=== PATIENT | female | born 1965 | race Caucasian/White ===

== ENCOUNTER 2017-05-15 22:06 | Emergency (ER) | payer OTHER ==
[~2017-05-15] VITALS: Ht 170.2 cm; Wt 109.8 kg
[~2017-05-15 22:06] MED LIST: AMBIEN10 MG PO; CALCIUM 500 +1 EAC2 PO; ESTRADIOL0.5 MG PO; ESTRADIOL1 MG PO; FLEXERIL5 MG PO; FLUOXETINE HCL20 MG PO; GABAPENTIN100 MG PO; IBUPROFEN200 MG PO; KONDREMUL2.5 ML/5 M PO; MACRODANTIN100 MG PO; MOTRIN800 MG PO; NORCO 5-325 TA1 EACH PO; ONE-A-DAY WOME1 EAC1 PO; SENNA-S TABLET1 EACH PO; TESSALON200 MG PO; WELLBUTRIN SR150 MG PO
[2017-05-15] MEDS ORDERED: LOSARTAN POTASS25 MG PO (22:51)
[2017-05-15] MEDS ORDERED: VALACYCLOVIR500 MG PO (22:53)
--- NOTE | 2017-05-17 15:52 | EKG ---
[facility] [address] [facility] [place] [address] Signed Normal sinus rhythm Normal ECG No previous ECGs available Confirmed by DARYN WILKES MD ([id number]) on 05/17/2017 3:52:38 PM Electronically Signed By: DARYN WILKES MD 05/17/17 1552 PATIENT NAME: DANIA LUZ Electrocardiogram DATE OF : 63 PHYSICIAN: DARYN WILKES MD REPORT #: [id number] REPORT IS CONFIDENTIAL AND NOT TO BE RELEASED WITHOUT AUTHORIZATION
== END 2017-05-16 02:28 | disposition home or self-care (01) ==
LOC: ED 22:06
DX: R07.2 Precordial pain (principal); I10 Essential (primary) hypertension; Z88.8 Allergy status to other drugs, medicaments and biological substances; Z79.899 Other long term (current) drug therapy
CPT/HCPCS: 71045; 71260; 80053; 84484; 85025; 93005; 93010; 96374; 96375; 96376; 99284; J2270; J2405; Q9967

== ENCOUNTER 2018-08-07 21:35 | Emergency (ER) | payer OTHER ==
[~2018-08-07] VITALS: Ht 170.2 cm; Wt 109.8 kg
--- OUTSIDE RECORDS SUMMARY | ~2018-08-07 | XMS | Encounter Summary ---
Demographics + + + | Address | [address] | | | [place] [address] | + + + | Home Phone | | + + + | Preferred Language | Unknown | + + + | Marital Status | | + + + | Scientologist Affiliation | 1038 | + + + | Race | Unknown | + + + | Ethnic Group | Unknown | + + + Author + + + | Author | [facility] | | | and [place] | + + + | Organization | [facility] | | | and [place] | + + + | Address | Unknown | + + + | Phone | Unavailable | + + + Support + + + + + | Name | Relationship | Address | Phone | + + + + + | Eric Guerrier | ECON | [address] | | | | | [place] [address] | | + + + + + Care Team Providers + +------+ + | Care Boot And Shoe Repairman Name | Role | Phone | + +------+ + | Alex Alvarenga DO | PCP | Unavailable | + +------+ + Reason for Visit + + + | Reason | Comments | + + + | Lab Order | | + + + Encounter Details +--------+ + + + + | Date | Type | Department | Care Team | Description | +--------+ + + + + | 08/06/ | Telephone | [facility] | Alex Alvarenga | Lab Order | | 2019 | | [facility] | E, DO [address] | | | | | MED[facility] CL[facility] [address] | [place], [place] | | | | [address] [place], | [address] | | | | | [place] [address] | [phone] | | | | | [phone] | | | +--------+ + + + [...] + +---------+ + | Alcohol Use | Drinks/We | oz/Week | Comments | | | ek | | | + + +---------+ + | No | 0 | 0.0 | | | | Glasses | | | | | of wine | | | | | 0 Cans of | | | | | beer 0 | | | | | Shots of | | | | | liquor 0 | | | | | Standard | | | | | drinks | | | | | or | | | | | equivalen | | | | | t | | | + + +---------+ + + + + | Sex Assigned at | Date Recorded | | | | + + + | Not on file | | + + + + + + + | Job Start Date | Occupation | Industry | + + + + | Not on file | Not on file | Not on file | + + + + + + + + | Travel History | Travel Start | Travel End | + + + + + + | No recent travel history available. | + + documented as of this encounter Plan of Treatment +--------+---------+ + + + | Date | Type | Specialty | Care Team | Description | +--------+---------+ + + + | 08/16/ | Office | Primary Care | Alex Alvarenga | | | 2018 | Visit | | E, DO [address] | | | | | | [place] | | | | | | [address] | | | | | | [phone] | | | | | | | | +--------+---------+ + + + + +--------+ + + | Name | Priori | Associated Diagnoses | Order Schedule | | | ty | | | + +--------+ + + | Urinalysis with Microscopic with | Routin | Pain with | Expected: | | Culture if Indicated | e | urination | 08/06/2018, Expires: | | | | | 08/07/2019 | + +--------+ + + documented as of this encounter Procedures + +--------+ + + + | Procedure Name | Priori | Date/Time | Associated Diagnosis | Comments | | | ty | | | | + +--------+ + + + | URINALYSIS WITH | Routin | 08/07/2018 | | Results for this | | MICROSCOPIC WITH | e | 10:55 PDT | | procedure are in the | | CULTURE IF INDICATED | | | | results section. | + +--------+ + + + documented in this encounter Results Urinalysis with Microscopic with Culture if Indicated (08/07/2018 10:55 PDT) + + + + + + | Component | Value | Ref Range | Performed | Pathologist | | | | | At | Signature | + + + + + + | Collection | CLEAN CATCH | | REFERENCE | | | | | | LAB | | | | | | [facility] | | + + + + + + | Color, UA | YELLOW | | REFERENCE | | | | | | LAB | | | | | | [facility] | | + + + + + + | Clarity, UA | SLIGHTLYCLOUDY | | REFERENCE | | | | | | LAB | | | | | | [facility] | | + + + + + + | Specific | 1.010 | 1.005 - 1.030 | REFERENCE | | | [place] | | | LAB | | | | | | [facility] | | + + + + + + | pH, | 7 | 5 - 9 | REFERENCE | | | Scalp | | | LAB | | | | | | [facility] | | + + + + + + | Protein, UA | NEGATIVE | negative | REFERENCE | | | | | | LAB | | | | | | [facility] | | + + + + + + | Glucose, UA | NORMAL | normal | REFERENCE | | | | | | LAB | | | | | | [facility] | | + + + + + + | Ketones, UA | NEGATIVE | negative | REFERENCE | | | | | | LAB | | | | | | [facility] | | + + + + + + | Bilirubin, | NEGATIVE | negative | REFERENCE | | | UA | | | LAB | | | | | | [facility] | | + + + + + + | Blood, UA | NEGATIVE | negative | REFERENCE | | | | | | LAB | | | | | | [facility] | | + + + + + + | Nitrite, UA | POSITIVE (H) | negative | REFERENCE | | | | | | LAB | | | | | | [facility] | | + + + + + + | Urobilinoge | NORMAL | normal | REFERENCE | | | n, Ur | | | LAB | | | | | | [facility] | | + + + + + + | Leukocyte | LARGE (H) | negative | REFERENCE | | | esterase, | | | LAB | | | UA | | | [facility] | | + + + + + + | Cast Type | NEGATIVE | 0-1+ Hyaline | REFERENCE | | | | | | LAB | | | | | | [facility] | | + + + + + + | WBC, UA | 10 (H) | 0 - 4 | REFERENCE | | | | | | LAB | | | | | | [facility] | | + + + + + + | RBC, UA | 2 | 0 - 4 | REFERENCE | | | | | | LAB | | | | | | [facility] | | + + + + + + | Squamous | SQUAMOUS 1+ | 0-1+ Squamous | REFERENCE | | | epithelial, | | | LAB | | | UA | | | [facility] | | + + + + + + | CRYSTAL UA | NEGATIVE | 0-1+ | REFERENCE | | | | | | LAB | | | | | | [facility] | | + + + + + + | Bacteria, | 1+ | negative | REFERENCE | | | UA | | | LAB | | | | | | [facility] | | + + + + + + + + | Specimen | + + | | + + + + + | Narrative | Performed At | + + + | Testing Performed at: [facility] CLIA: [id number] [address] | REFERENCE LAB | | [place] [address] | [facility] | + + + + + + + + | Performing | Address | City/State/Zipcode | Phone Number | | Organization | | | | + + + + + | REFERENCE LAB | [address] | [place] [address] | [phone] | | [facility] | | | | + + + + + documented in this encounter Visit Diagnoses + + | Diagnosis | + + | Pain with urination - Primary | + + documented in this encounter"
--- OUTSIDE RECORDS SUMMARY | ~2018-08-07 | XMS | Encounter Summary ---
Demographics + + + | Address | [address] | | | [place] [address] | + + + | Home Phone | | + + + | Preferred Language | Unknown | + + + | Marital Status | | + + + | Rastafarian Affiliation | 1038 | + + + | Race | Unknown | + + + | Ethnic Group | Unknown | + + + Author + + + | Author | [facility] | | | and [place] | + + + | Organization | [facility] | | | and [place] | + + + | Address | Unknown | + + + | Phone | Unavailable | + + + Support + + + + + | Name | Relationship | Address | Phone | + + + + + | Eric Guerrier | ECON | [address] | | | | | [place] [address] | | + + + + + Care Team Providers + +------+ + | Care Dial Screw Assembler Name | Role | Phone | + +------+ + | Alex Alvarenga DO | PCP | Unavailable | + +------+ + Reason for Visit + + + | Reason | Comments | + + + | Medication Refill | | + + + Encounter Details +--------+--------+ + + + | Date | Type | Department | Care Team | Description | +--------+--------+ + + + | 05/21/ | Refill | [facility] | Alex Alvarenga | Medication Refill | | 2018 | | [facility] | E, DO [address] | | | | | MEDICAL CLIN[address] | [place], [place] | | | | | [address] [place], | [address] | | | | | [place] [address] | [phone] | | | | | [phone] | | | +--------+--------+ + + + [...] | | 2018 | Visit | | DO [facility] [address] | | | | | | [place] | | | | | | [address] | | | | | | [phone] | | | | | | | | +--------+---------+ + + + documented as of this encounter Visit Diagnoses Not on filedocumented in this encounter"
--- OUTSIDE RECORDS SUMMARY | ~2018-08-07 | XMS | Encounter Summary ---
Demographics + + + | Address | [address] | | | [place] [address] | + + + | Home Phone | | + + + | Preferred Language | Unknown | + + + | Marital Status | | + + + | Baptist Affiliation | 1038 | + + + | Race | Unknown | + + + | Ethnic Group | Unknown | + + + Author + + + | Author | [facility] | | | and [place] | + + + | Organization | [facility] | | | and [place] | + + + | Address | Unknown | + + + | Phone | Unavailable | + + + Support + + + + + | Name | Relationship | Address | Phone | + + + + + | Eric Guerrier | ECON | [address] | | | | | [place] [address] | | + + + + + Care Team Providers + +------+ + | Care Express Clerk Name | Role | Phone | + [...] | 2018 | | [facility] | MEDICAID BILLING SPECIALIST | | | | | MEDICAL CLIN[facility] [address] | | | | | | [address] [facility] [place], | | | | | | [place] [address] | | | | | | [phone] | | | +--------+--------+ + + + [...] [place] | | | | | | [address] | | | | | | [phone] | | | | | | | | +--------+---------+ + + + documented as of this encounter Visit Diagnoses Not on filedocumented in this encounter"
--- OUTSIDE RECORDS SUMMARY | ~2018-08-07 | XMS | Clinical Summary ---
Demographics + + + | Address | [address] | | | [place] [address] | + + + | Home Phone | | + + + | Preferred Language | Unknown | + + + | Marital Status | | + + + | Mormonism Affiliation | 1038 | + + + | Race | Unknown | + + + | Ethnic Group | Unknown | + + + Author + + + | Author | [facility] | | | and [place] | + + + | Organization | [facility] | | | and [place] | + + + | Address | Unknown | + + + | Phone | Unavailable | + + + Support + + + + + | Name | Relationship | Address | Phone | + + + + + | Eric Guerrier | ECON | [address] | | | | | [place] [address] | | + + + + + Care Team Providers + +------+ + | Care Slipper Maker Name | Role | Phone | + +------+ + | Alex Alvarenga DO | PP | Unavailable | + +------+ + Allergies No Known [...] e | + + + +---------+------+------+-------+ | valACYclovir | Take 500 mg by mouth | | 0 | | | Activ | | (VALTREX) 500 mg | 2 times daily. | | | | | e | | tablet | | | | | | | + + + +---------+------+------+-------+ | FLUoxetine | Take 1 capsule by | 90 | 3 | 12/22 | | Activ | | (PROZAC) 40 MG | mouth Daily. | capsule | | 8/20 | | e | | capsule | | | | 18 | | | + + + +---------+------+------+-------+ | losartan (COZAAR) | Take 1 tablet by | 90 | 3 | / | | Activ | | 25 mg tablet | mouth Daily. | tablet | | 05/12 | | e | | | | | | 19 | | | + + + +---------+------+------+-------+ | zolpidem (AMBIEN) | Take 1 tablet by | 30 | 3 | / | | Activ | | 5 mg tablet | mouth nightly. | tablet | | 01/10 | | e | | | | | | 19 | | | + + + +---------+------+------+-------+ | FLUoxetine | Take 3 capsules by | 270 | 3 | / | | Activ | | (PROZAC) 20 mg | mouth Daily. | capsule | | 5/20 | | e | | capsuleIndications: | | | | 19 | | | | Depression with | | | | | | | | anxiety | | | | | | | + + + +---------+------+------+-------+ | | Take 1 tablet by | 20 | 0 | 04/1 | 04/2 | Activ | | sulfamethoxazole-tri | mouth 2 times daily | tablet | | / | /20 | e | | methoprim (BACTRIM | for 10 days. | | | 19 | 19 | | | DS) 800-160 mg per | | | | | | | | tablet | | | | | | | + + + +---------+------+------+-------+ | gabapentin | Take 1 capsule by | 30 | 1 | 08/1 | 03/2 | Disco | | (NEURONTIN) 100 mg | mouth nightly. | capsule | | 4/20 | 5/20 | ntinu | | capsule | | | | 18 | 19 | ed | + + + +---------+------+------+-------+ | pseudoePHEDrine | Take 1 tablet by | 40 | 0 | 10/3 | 03/2 | Disco | | (SUDAFED) 30 mg | mouth every 4 hours | tablet | | 0/20 | 5/20 | ntinu | | tablet | as needed for | | | 18 | 19 | ed | | | Congestion. 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 | | +--------+ + + + + | 08/06/ | Telephone | | Alex Alvarenga | Lab Order | | 2019 | | | E, DO | | +--------+ + + + + | 07/15/ | Office | | Alex Alvarenga | Depression with | | 2018 | Visit | | E, DO | anxiety (Primary | | | | | | Dx); Sleep apnea, | | | | | | unspecified type; | | | | | | [place]le, face | +--------+ + + + + | 07/10/ | Telephone | | Alex Alvarenga | Lab Order | | 2018 | | | E, DO | | +--------+ + + + + | 05/21/ | Refill | | Alex Alvarenga | Medication Refill | | 2018 | | | E, DO | | +--------+ + + + + | 05/13/ | Refill | | Zoila Ruff CC | Medication Refill | 2018 | | | LAUNDRY EQUIPMENT OPERATOR | | +--------+ + + + + from Last 3 Months Immunizations + + + + | Name | Dates Previously Given | Next Due | + + + [...] recent travel history available. | + + Last Filed Vital Signs + + + + | Vital Sign | Reading | Time Taken | + + + + | Blood Pressure | 152/84 | 07/15/2018 0831 PDT | + + + + | Pulse | 73 | 07/15/2018830 PDT | + + + + | Temperature | 36.7 C (98.1 F) | 07/15/2018830 PDT | + + + + | Respiratory Rate | 16 | 07/15/2018830 PDT | + + + + | Oxygen Saturation | 98% | 07/15/2018830 PDT | + + + + | Inhaled Oxygen | - | - | | Concentration | | | + + + + | Weight | 116.2 kg (256 lb 3.2 | 07/15/2018830 PDT | | | oz) | | + + + + | Height | 167.6 cm (5' 6") | 07/15/2018830 PDT | + + + + | Body Mass Index | 41.35 | 07/15/2018830 PDT | + + + + Plan of Treatment +--------+---------+ + + + | Date | Type | Specialty | Care Team | Description | +--------+---------+ + + + | 08/16/ | Office | | Alex Alvarenga | | | 2018 | Visit | | DO [address] | | | | | | [place] | | | | | | [address] | | | | | | [phone] | | | | | | | | +--------+---------+ + + + + + + + + | Health Maintenance | Due Date | Last Done | Comments | + + + + + | Vaccine: Zoster (1 | | | | | of 2) | 5 | | | + + + + + | Breast Cancer | | 02/18/2016 | | | Screening (Ages | 8 | | | | 50-74) | | | | + + + + + | Primary Care | | 07/15/2018, 01/01/2018 | | | Outreach (Low Risk) | 1 | | | + + + + + | Cervical Cancer | | 05/16/2016 | | | Screening (Pap) | 2 | | | + + + + + | Colorectal Cancer | | 06/24/2015, 06/24/2015 | | | Screening | 6 | | | | (Colonoscopy) | | | | + + + + + | Vaccine: | | 01/01/2018, 12/05/2005 | | | Dtap/Tdap/Td (3 - | 8 | | | | Td) | | | | + + + + + | Vaccine: Influenza | Completed | 01/01/2018, 01/10/2017, | | | | | 01/09/2017, Additional history | | | | | exists | | + + + + + | Hepatitis C | Completed | 01/02/2018 | | | Screening | | | | + + + [...] | + +--------+ + + + | LABS - EXTERNAL SCAN | | 08/06/2018 | | Results for this | | | | 0:00 PDT | | procedure are in the | | | | | | results section. | + +--------+ + + + | LABS - EXTERNAL SCAN | | 08/01/2018 | | Results for this | | | | 0:00 PDT | | procedure are in the | | | | | | results section. | + +--------+ + + + | URINALYSIS WITH | Routin | 07/12/2018 | | Results for this | | MICROSCOPIC WITH | e | 16:03 PDT | | procedure are in the | | CULTURE IF INDICATED | | | | results section. | + +--------+ + + + | THYROID STIMULATING | Routin | 07/12/2018 | | Results for this | | HORMONE 3RD GEN | e | 16:03 PDT | | procedure are in the | | | | | | results section. | + +--------+ + + + | COMPREHENSIVE | Routin | 07/12/2018 | | Results for this | | METABOLIC PANEL | e | 16:03 PDT | | procedure are in the | | | | | | results section. | + +--------+ + + + | CBC WITH | Routin | 07/12/2018 | | Results for this | | DIFFERENTIAL | e | 16:03 PDT | | procedure are in the | | | | | | results section. | + +--------+ + + + from Last 3 Months Results Urinalysis with Microscopic with Culture if Indicated (08/07/2018 10:55 PDT)Only the most r ecent of 2 results within the time period is included. + + + + + + | [...] - 1.030 | REFERENCE | | | [place] | | | LAB | | | [...] Testing Performed at: [facility] CLIA: [id number] - [address] | REFERENCE LAB | | [place] [address] | [facility] | + + + + + + + + | Performing | Address | City/State/Zipcode | Phone Number | | Organization | | | | + + + + + | REFERENCE LAB | [address] | [place] [address] | [phone] | | [facility] | | | | + + + + + LABS - EXTERNAL SCAN (08/06/2018 0:00 PDT)Only the most recent of 2 results within the is included. + + + | Narrative | Performed At | + + + | Ordered by an | | | unspecified provider. | | + + + Thyroid Stimulating Hormone 3rd Gen (07/12/2018 16:03 PDT) + + + + + + | Component | Value | Ref Range | Performed | Pathologist | | | | | At | Signature | + + + + + + | TSH | 2.58Comment: Biotin in | 0.270 - 4.20 | REFERENCE | | | | specimens taken from | | LAB | | | | patients on high-dose | | [facility] | | | | biotin therapy or | | | | | | supplements may intefere | | | | | | with this test and | | | | | | cause inaccurate test | | | | | | results. It is | | | | | | recommended that for | | | | | | patients receiving | | | | | | therapy with high biotin | | | | | | doses (> 5 mg/day), no | | | | | | laboratory test specimen | | | | | | should be collected | | | | | | until at least 8 hours | | | | | | after the last biotin | | | | | | administration. | | | | + + + + + + + + | Specimen | + + | | + + + + + | Narrative | Performed At | + + + | Testing Performed at: [facility] CLIA: [id number] - [address] | REFERENCE LAB | | [place] [address] | [facility] | + + + + + + + + | Performing | Address | City/State/Zipcode | Phone Number | | Organization | | | | + + + + + | REFERENCE LAB | [address] [facility] | [place] [address] | [phone] | | [facility] | | | | + + + + + CBC with Differential (07/12/2018 16:03 PDT) + + + + + + | Component | Value | Ref Range | Performed | Pathologist | | | | | At | Signature | + + + + + + | WBC | 4.4 (L) | 4.5 - 11.0 | REFERENCE | | | | | | LAB | | | | | | [facility] | | + + + + + + | RBC Count | 4.18 | 3.8 - 5.1 | REFERENCE | | | | | | LAB | | | | | | [facility] | | + + + + + + | Hemoglobin | 13.4 | 12.0 - 16.0 | REFERENCE | | | | | | LAB | | | | | | [facility] | | + + + + + + | Hct | 40.4 | 35 - 45 | REFERENCE | | | | | | LAB | | | | | | [facility] | | + + + + + + | MCV | 96.5 | 81 - 99 | REFERENCE | | | | | | LAB | | | | | | [facility] | | + + + + + + | RDW | 12.2 | 10.5 - 15.0 | REFERENCE | | | | | | LAB | | | | | | [facility] | | + + + + + + | MCH | 32 | 27 - 33 | REFERENCE | | | | | | LAB | | | | | | [facility] | | + + + + + + | MCHC | 33 | 30 - 36 | REFERENCE | | | | | | LAB | | | | | | [facility] | | + + + + + + | Platelet | 246 | 140 - 440 | REFERENCE | | | Count | | | LAB | | | | | | [facility] | | + + + + + + | % | 61.8 | 39 - 80 | REFERENCE | | | Neutrophils | | | LAB | | | | | | [facility] | | + + + + + + | % | 21.2 (L) | 24 - 44 | REFERENCE | | | Lymphocytes | | | LAB | | | | | | [facility] | | + + + + + + | Monocyte % | 14.1 (H) | 0 - 12 | REFERENCE | | | | | | LAB | | | | | | [facility] | | + + + + + + | Eosinophils | 2.3 | 0 - 6 | REFERENCE | | | % | | | LAB | | | | | | [facility] | | + + + + + + | Basophils % | 0.6 | 0 - 2 | REFERENCE | | | | | | LAB | | | | | | [facility] | | + + + + + + + + | Specimen | + + | | + + + + + | Narrative | Performed At | + + + | Testing Performed at: [facility] CLIA: [id number] - [address] | REFERENCE LAB | | [place] [address] | [facility] | + + + + + + + + | Performing | Address | City/State/Zipcode | Phone Number | | Organization | | | | + + + + + | REFERENCE LAB | [facility] [facility] | [place] [address] | [phone] | | [facility] | | | | + + + + + Comprehensive Metabolic Panel (07/12/2018 16:03 PDT) + + + + + + | Component | Value | Ref Range | Performed | Pathologist | | | | | At | Signature | + + + + + + | Sodium | 141 | 132 - 143 | REFERENCE | | | | | | LAB | | | | | | [facility] | | + + + + + + | Potassium | 3.9 | 3.6 - 5.1 | REFERENCE | | | | | | LAB | | | | | | [facility] | | + + + + + + | Chloride | 104 | 95 - 112 | REFERENCE | | | | | | LAB | | | | | | [facility] | | + + + + + + | Carbon | 24 | 19 - 31 | REFERENCE | | | dioxide | | | LAB | | | | | | [facility] | | + + + + + + | Anion Gap | 16.9 | 7 - 21 | REFERENCE | | | | | | LAB | | | | | | [facility] | | + + + + + + | GLUCOSE.SER | 86 | 70 - 100 | REFERENCE | | | /PLAS.QN | | | LAB | | | (REF) | | | [facility] | | + + + + + + | BUN | 17 | 6 - 23 | REFERENCE | | | | | | LAB | | | | | | [facility] | | + + + + + + | Creatinine | 0.86 | 0.70 - 1.33 | REFERENCE | | | | | | LAB | | | | | | [facility] | | + + + + + + | GFR | 69 | | REFERENCE | | | ESTIMATE | | | LAB | | | | | | [facility] | | + + + + + + | BUN/Creatin | 19.8 | 6.0 - 28.6 | REFERENCE | | | ine Ratio | | | LAB | | | | | | [facility] | | + + + + + + | Calcium | 9.1 | 8.5 - 10.3 | REFERENCE | | | | | | LAB | | | | | | [facility] | | + + + + + + | AST (SGOT) | 19 | 13 - 39 | REFERENCE | | | (REF) | | | LAB | | | | | | [facility] | | + + + + + + | ALT (SGPT) | 16 | 7 - 52 | REFERENCE | | | (REF) | | | LAB | | | | | | [facility] | | + + + + + + | DORINDA RODRIGUEZ | 49 | 31 - 130 | REFERENCE | | | | | | LAB | | | | | | [facility] | | + + + + + + | BILIRUBIN, | 0.4 | 0.0 - 1.2 | REFERENCE | | | TOTAL | | | LAB | | | | | | [facility] | | + + + + + + | Protein, | 6.8 | 6.0 - 8.3 | REFERENCE | | | Total | | | LAB | | | | | | [facility] | | + + + + + + | Albumin | 3.8 | 3.5 - 5.0 | REFERENCE | | | | | | LAB | | | | | | [facility] | | + + + + + + | Globulin | 3.0 | 1.8 - 3.5 | REFERENCE | | | | | | LAB | | | | | | [facility] | | + + + + + + | A/G Ratio | 1.3Comment: | 1.1 - 2.4 | REFERENCE | | | | ESTIMATED | | LAB | | | | GFR Reference Range:GFR | | [facility] | | | | = Less than 60: Chronic | | | | | | Kidney Disease, if found | | | | | | over a 3 month | | | | | | period.GFR = Less than | | | | | | 15: Kidney Failure.For | | | | | | Americans, | | | | | | multiply the calculated | | | | | | GFR by 1.21.GFR | | | | | | calculation is not valid | | | | | | for patients under age | | | | | | 18 years.For patients | | | | | | over age 70 please | | | | | | interpret results with | | | | | | caution as results have | | | | | | not been validated for | | | | | | this calculation method | | | | | | Please Note:Total | | | | | | Protein Reference range | | | | | | change as of | | | | | | 09/10/2017.Please Note: | | | | | | Calcium reference range | | | | | | change as of 11/08/2017. | | | | + + + + + + + + | Specimen | + + | | + + + + + | Narrative | Performed At | + + + | Testing Performed at: [facility] CLIA: [id number] - [address] | REFERENCE LAB | | [place] [address] | [facility] | + + + + + + + + | Performing | Address | City/State/Zipcode | Phone Number | | Organization | | | | + + + + + | REFERENCE LAB | [address] | [place] [address] | [phone] | | [facility] | | | | [...] + +------+ | MODA | MODA | [id number] | 04/23/19 | [phone] | [address] | PPO | | | OE[place] | | 15-Pre | 9 | [id number] | | | | [place] | | sent | | [facility] | | | | [place] | | | | [place] [address] | | + +--------+ +--------+ + +------+ | MODA | MODA | [id number] | | [phone] | [address] | PPO | | | OEBB | | 017-Pr | 9 | [address] | | | | [place] | | esent | | [place], | | | | [place] | | | | [place] [address] | | + +--------+ +--------+ + +------+ | [facility] | PHP | [id number] | 04/23/19 | [id number] | | PPO | | PLAN | PEBB | | 18-Pre | 5 | | | | | [place]W | | sent | | | | | | ISA | | | | | | + +--------+ +--------+ + +------+ | [facility] | PHP | [id number] | 04/23/19 | [id number] | | PPO | | PLAN | [...] | [birth year] | | [address] | | | al/Fam | | 1966 | [phone] | [place] [address] | | | [place] | | | 6 (Home) | | + +--------+ +--------+ + + | Tatyana Guerrier | Person | Self | [birth year] | [address] | | | al/Fam | | 1962 | [phone] | [place] [address] | | | [place] | | | 6 (Home) | | + +--------+ +--------+ + + | Tatyana Guerrier | Third | Self | [birth year] | 8 | | | Republican | | 1966 | [phone] | [place] [address] | | | [place]esar | | | 6 (Home) | | | | farhana | | | | | + +--------+ +--------+ + + Advance Directives Patient has advance care planning documents on file. For more information, please contact:[facility] [place] [address]
--- OUTSIDE RECORDS SUMMARY | ~2018-08-07 | XMS | Encounter Summary ---
Demographics + + + | Address | [address] | | | [place] [address] | + + + | Home Phone | | + + + | Preferred Language | Unknown | + + + | Marital Status | | + + + | Temple Affiliation | 1038 | + + + | Race | Unknown | + + + | Ethnic Group | Unknown | + + + Author + + + | Author | [facility] | | | and [place] | + + + | Organization | [facility] | | | and [place] | + + + | Address | Unknown | + + + | Phone | Unavailable | + + + Support + + + + + | Name | Relationship | Address | Phone | + + + + + | Eric Guerrier | ECON | [address] | | | | | [place] [address] | | + + + + + Care Team Providers + +------+ + | Care Production Expediter Name | Role | Phone | + [...] + + | 07/10/ | Telephone | [facility] | Alex Alvarenga | Lab Order | | 2018 | | [facility] | E, DO [address] | | | | | [facility] [address] | [place], [place] | | | | | [address] [place], | [address] | | | | | [place] [address] | [phone] | | | | | [phone] | | | +--------+ + + + [...] | Visit | | E, DO [address] | | | | | | [place] | | | | | | [address] | | | | | | [phone] | | | | | | | | +--------+---------+ + + + + +--------+ + + | Name | Priori | Associated Diagnoses | Order Schedule | | | ty | | | + +--------+ + + | Comprehensive Metabolic Panel | Routin | Fatigue, | Expected: | | | e | unspecified type | 07/11/2018, Expires: | | | | | 07/12/2019 | + +--------+ + + | CBC with Differential | Routin | Fatigue, | Expected: | | | e | unspecified type | 07/11/2018, Expires: | | | | | 07/12/2019 | + +--------+ + + | TSH | Routin | Fatigue, | Expected: | | | e | unspecified type | 07/11/2018, Expires: | | | | | 07/12/2019 | + +--------+ + + | Urinalysis with Microscopic with | Routin | Fatigue, | Expected: | | Culture if Indicated | e | unspecified type | 07/11/2018, Expires: | | | | | 07/12/2019 | + +--------+ + + documented as [...] Urinalysis with Microscopic with Culture if Indicated (07/12/2018 16:03 PDT) + + + + [...] + + + + | Specific | 1.018 | 1.005 - 1.030 | REFERENCE | | | [place] | | | LAB | | | | | | [facility] | | + + + + + + | pH, | 5 | 5 - 9 | REFERENCE | [...] + + + | WBC, UA | 2 | 0 - 4 [...] + + + | Squamous | SQUAMOUS 4+ | 0-1+ Squamous | REFERENCE | | | epithelial, | | | LAB | | | UA | | | [facility] | | + + + + + + | CRYSTAL UA | NEGATIVE | 0-1+ | REFERENCE | | | | | | LAB | | | | | | [facility] | | + + + + + + | Bacteria, | 3+Comment: A urine | negative | REFERENCE | | | UA | culture is indicated (10 | | LAB | | | | or greater WBCs and/or | | [facility] | | | | >1+ bacteria). However, | | | | | | the urinalysis | | | | | | microscopic shows | | | | | | urogenital contamination | | | | | | (>1+ squamous | | | | | | epithelial cells). If | | | | | | culture is desired, a | | | | | | new specimen is | | | | | | recommended. | | | | + + + + + + + + | Specimen | + + | | + + + + + | Narrative | Performed At | + + + | Testing Performed at: [facility] CLIA: [id number] - [address] | REFERENCE LAB | | [place] [address] | [facility] | + + + + + + + + | Performing | Address | City/State/Zipcode | Phone Number | | Organization | | | | + + + + + | REFERENCE LAB | [address] [facility] | [place] [address] | [phone] | | [facility] | | | | + + + + + Thyroid Stimulating Hormone 3rd [...] Testing Performed at: [facility] CLIA: [id number] - [address] | REFERENCE LAB | | [place] [address] | [facility] | + + + + + + + + | Performing | Address | City/State/Zipcode | Phone Number | | Organization | | | | + + + + + | REFERENCE LAB | [address] | [place] [address] | [phone] | | [facility] | | | | [...] + + + + + + | ALK PHOS | 49 | 31 - 130 | [...] Testing Performed at: [facility] CLIA: [id number] - [address] | REFERENCE LAB | | [place] [address] | [facility] | + + + + + + + + | Performing | Address | City/State/Zipcode | Phone Number | | Organization | | | | + + + + + | REFERENCE LAB | [address] | [place] | [phone] | | [facility] | | | | [...] Testing Performed at: [facility] CLIA: [id number] - [address] | REFERENCE LAB | | [place] [address] | [facility] | + + + + + + + + | Performing | Address | City/State/Zipcode | Phone Number | | Organization | | | | + + + + + | REFERENCE LAB | [facility] [facility] | [place] [address] | [phone] | | [facility] | | | | + + + + + documented in this encounter Visit Diagnoses + + | Diagnosis | + + | Fatigue, unspecified type - Primary | + + documented in this encounter"
--- OUTSIDE RECORDS SUMMARY | ~2018-08-07 | XMS | Clinical Summary ---
Demographics + + + | Address | [address] | | | [place] [address] | + + + | Home Phone [...] + | Author | [facility] | | | and [place] | + + + | Organization | [facility] | | | and [place] | + + + | Address | Unknown | + + + | Phone | Unavailable | + + + Support + + + + + | Name | Relationship | Address | Phone | + + + + + | Eric Guerrier | ECON | [address] | | | | | [place] [address] | | + + + + + Care Team Providers + +------+ + | Care Curb Setter Helper Name | Role | Phone | + [...] Lab | | 2019 | | | DIRECTOR OF FRONT OFFICE | | +--------+ + + + + [...] Medication Refill | 2018 | | | CHANNEL DIRECTOR | | +--------+ + + + + [...] [place] | | | | | | [address] | | | | | | [phone] | | | | | | | [...] - 1.030 | REFERENCE | | | [place] | | | LAB | | | [...] Testing Performed at: [facility] CLIA: [id number] - [address] | REFERENCE LAB | | [place] [address] | [facility] | + + + + + + + + | Performing | Address | City/State/Zipcode | Phone Number | | Organization | | | | + + + + + | REFERENCE LAB | [address] [facility] | [place] [address] | [phone] | | [facility] | | | | [...] Testing Performed at: [facility] CLIA: [id number] - [address] | REFERENCE LAB | | [place] [address] | [facility] | + + + + + + + + | Performing | Address | City/State/Zipcode | Phone Number | | Organization | | | | + + + + + | REFERENCE LAB | [address] [facility] | [place] [address] | [phone] | | [facility] | | | | [...] Testing Performed at: [facility] CLIA: [id number] - [address] | REFERENCE LAB | | [place] [address] | [facility] | + + + + + + + + | Performing | Address | City/State/Zipcode | Phone Number | | Organization | | | | + + + + + | REFERENCE LAB | [facility] [facility] | [place] [address] | [phone] | | [facility] | | | | [...] Testing Performed at: [facility] CLIA: [id number] - [address] | REFERENCE LAB | | [place] [address] | [facility] | + + + + + + + + | Performing | Address | City/State/Zipcode | Phone Number | | Organization | | | | + + + + + | REFERENCE LAB | [address] [facility] | [place] [address] | [phone] | | [facility] | | | | [...] + +------+ | MODA | MODA | [id number] | 04/23/19 | [phone] | [address] | PPO | | | [place] | | 15-Pre | 9 | [phone] | | | | [place] | | sent | | [facility] | | | | [place] | | | | [place] [address] | | + +--------+ +--------+ + +------+ | MODA | MODA | [id number] | | [phone] | [address] | PPO | | | [place] | | 017-[address] | 9 | [phone] | | | | [place] | | esent | | [place], | | | | [place] | | | | [place] [address] | | + +--------+ +--------+ + +------+ | [facility] | PHP | [id number] | 04/23/19 | [id number] | | PPO | | PLAN | PEBB | | 18-Pre | 5 | | | | | STATEW | | sent | | | | | | ISA | | | | | | + +--------+ +--------+ + +------+ | [facility] | PHP | [id number] | 04/23/19 | [id number] | | PPO [...] | 1966 | [phone] | [place] [address] | | | [place] | | | 6 (Home) | | + +--------+ +--------+ + + | Tatyana Guerrier | Person | Self | [birth year] | [address] | | | al/Fam | | 1962 | [phone] | [place] [address] | | | [place] | | | 6 (Home) | | + +--------+ +--------+ + + | Tatyana Guerrier | Third | Self | [birth year] | 8 | | | [employer] | | 1966 | [phone] | [place] [id number] | | | [place] | | | 6 (Home) | | | | farhana | | | | | + +--------+ +--------+ + + Advance Directives Patient has advance care planning documents on file. For more information, please contact:[facility] [place] [address]
--- OUTSIDE RECORDS SUMMARY | ~2018-08-07 | XMS | Encounter Summary ---
Demographics + + + | Address | [address] | | | [place] [address] | + + + | Home Phone | | + + + | Preferred Language | Unknown | + + + | Marital Status | | + + + | Latter Day Affiliation | 1038 | + + + | Race | Unknown | + + + | Ethnic Group | Unknown | + + + Author + + + | Author | [facility] | | | and [place] | + + + | Organization | [facility] | | | and [place] | + + + | Address | Unknown | + + + | Phone | Unavailable | + + + Support + + + + + | Name | Relationship | Address | Phone | + + + + + | Eric Guerrier | ECON | [address] | | | | | [place] [address] | | + + + + + Care Team Providers + +------+ + | Care Observatory Director Name | Role | Phone | + [...] Order | | 2018 | | [facility] | E, DO [address] | | | | | MEDICAL CLINIC [address] | [place], [place] | | | | | [address] [place], | [address] | | | | | [place] [address] | [phone] | | | | | [phone] | | | +--------+ + + + [...] | Visit | | E, DO [address] | | | | | | [place] | | | | | | [address] | | | | | | [phone] | | | | | | | [...] - 1.030 | REFERENCE | | | [place] | | | LAB | | | [...] Testing Performed at: [facility] CLIA: [id number] - [address] | REFERENCE LAB | | [place] [address] | [facility] | + + + + + + + + | Performing | Address | City/State/Zipcode | Phone Number | | Organization | | | | + + + + + | REFERENCE LAB | [address] | [place] [address] | [phone] | | [facility] | | | | [...] Testing Performed at: [facility] CLIA: [id number] - 2307 | REFERENCE LAB | | [place] [address] | [facility] | + + + + + + + + | Performing | Address | City/State/Zipcode | Phone Number | | Organization | | | | + + + + + | REFERENCE LAB | [address] | [place] [address] | [phone] | | [facility] | | | | [...] Testing Performed at: [facility] CLIA: [id number] - [address] | REFERENCE LAB | | [place] [address] | [facility] | + + + + + + + + | Performing | Address | City/State/Zipcode | Phone Number | | Organization | | | | + + + + + | REFERENCE LAB | [address] | [place] | [phone] | | [facility] | | | | [...] Testing Performed at: [facility] CLIA: [id number] - [address] | REFERENCE LAB | | [place] [address] | [facility] | + + + + + + + + | Performing | Address | City/State/Zipcode | Phone Number | | Organization | | | | + + + + + | REFERENCE LAB | [facility] | [place] [address] | [phone] | | [facility] | | | | + + + + + documented in this encounter Visit Diagnoses + + | Diagnosis | + + | Fatigue, unspecified type - Primary | + + documented in this encounter"
--- OUTSIDE RECORDS SUMMARY | ~2018-08-07 | XMS | Encounter Summary ---
Demographics + + + | Address | [address] | | | [place] [address] | + + + | Home Phone | | + + + | Preferred Language | Unknown | + + + | Marital Status | | + + + | Anabaptism Affiliation | 1038 | + + + | Race | Unknown | + + + | Ethnic Group | Unknown | + + + Author + + + | Author | [facility] | | | and [place] | + + + | Organization | [facility] | | | and [place] | + + + | Address | Unknown | + + + | Phone | Unavailable | + + + Support + + + + + | Name | Relationship | Address | Phone | + + + + + | Eric Guerrier | ECON | [address] | | | | | [place] [address] | | + + + + + Care Team Providers + +------+ + | Care Physician Assistant Certified Name | Role | Phone | + [...] Order | | 2019 | | [facility] | E, DO [address] | | | | | MEDICAL CLINIC [address] | [place], [place] | | | | | [address] [place], | [address] | | | | | [place] [address] | [phone] | | | | | [phone] | | | +--------+ + + + [...] [place] | | | | | | [address] | | | | | | [phone] | | | | | | | [...] - 1.030 | REFERENCE | | | [place] | | | LAB | | | [...] Testing Performed at: [facility] CLIA: [id number] - [address] | REFERENCE LAB | | [place] [address] | [facility] | + + + + + + + + | Performing | Address | City/State/Zipcode | Phone Number | | Organization | | | | + + + + + | REFERENCE LAB | [address] | [place] [address] | [phone] | | [facility] | | | | + + + + + documented in this encounter Visit Diagnoses + + | Diagnosis | + + | Pain with urination - Primary | + + documented in this encounter"
--- OUTSIDE RECORDS SUMMARY | ~2018-08-07 | XMS | Encounter Summary ---
Demographics + + + | Address | [address] | | | [place] [address] | + + + | Home Phone | | + + + | Preferred Language | Unknown | + + + | Marital Status | | + + + | Zoroastrian Affiliation | 1038 | + + + | Race | Unknown | + + + | Ethnic Group | Unknown | + + + Author + + + | Author | [facility] | | | and [place] | + + + | Organization | [facility] | | | and [place] | + + + | Address | Unknown | + + + | Phone | Unavailable | + + + Support + + + + + | Name | Relationship | Address | Phone | + + + + + | Eric Guerrier | ECON | [address] | | | | | [place] [address] | | + + + + + Care Team Providers + +------+ + | Care Outside Repairer Special Name | Role | Phone | + [...] | 2018 | | [facility] | E, DO [address] | | | | | MEDICAL CLINIC [address] | [place], [place] | | | | | [address] [place], | [address] | | | | | [place] [address] | [phone] | | | | | [phone] | | | +--------+--------+ + + + [...] [place] | | | | | | [address] | | | | | | [phone] | | | | | | | | +--------+---------+ + + + documented as of this encounter Visit Diagnoses Not on filedocumented in this encounter"
--- OUTSIDE RECORDS SUMMARY | ~2018-08-07 | XMS | Encounter Summary ---
Demographics + + + | Address | [address] | | | [place] [address] | + + + | Home Phone | | + + + | Preferred Language | Unknown | + + + | Marital Status | | + + + | Quaker Affiliation | 1038 | + + + | Race | Unknown | + + + | Ethnic Group | Unknown | + + + Author + + + | Author | [facility] | | | and [place] | + + + | Organization | [facility] | | | and [place] | + + + | Address | Unknown | + + + | Phone | Unavailable | + + + Support + + + + + | Name | Relationship | Address | Phone | + + + + + | Eric Guerrier | ECON | [address] | | | | | [place] [address] | | + + + + + Care Team Providers + +------+ + | Care Search Engine Optimization Specialist Name | Role | Phone | + +------+ + | Alex Alvarenga DO | PCP | Unavailable | + +------+ + Reason for Visit + + + | Reason | Comments | + + + | Abnormal Lab | | + + + Encounter Details +--------+ + + + + | Date | Type | Department | Care Team | Description | +--------+ + + + + | 08/07/ | Telephone | [place] [facility] | Irma Peng, | Abnormal Lab | | 2019 | | [facility] | YARN INSPECTOR [address] | | | | | WALK[facility]IN CLIN[facility] [address] | [place] [address] | | | | | [address] [place], | [phone] | | | | | [place] [address] | | | | | | [phone] | | | +--------+ + + + [...] [place] | | | | | | [address] | | | | | | [phone] | | | | | | | | +--------+---------+ + + + documented as of this encounter Visit Diagnoses Not on filedocumented in this encounter"
--- OUTSIDE RECORDS SUMMARY | ~2018-08-07 | XMS | Encounter Summary ---
Demographics + + + | Address | [address] | | | [place] [address] | + + + | Home Phone | | + + + | Preferred Language | Unknown | + + + | Marital Status | | + + + | Tenriism Affiliation | 1038 | + + + | Race | Unknown | + + + | Ethnic Group | Unknown | + + + Author + + + | Author | [facility] | | | and [place] | + + + | Organization | [facility] | | | and [place] | + + + | Address | Unknown | + + + | Phone | Unavailable | + + + Support + + + + + | Name | Relationship | Address | Phone | + + + + + | Eric Guerrier | ECON | [address] | | | | | [place] [address] | | + + + + + Care Team Providers + +------+ + | Care Editorial Writer Name | Role | Phone | + +------+ + | Alex Alvarenga DO | PCP | Unavailable | + +------+ + Reason for Referral Self-referral (Routine) + +--------+ + + + + | Status | Reason | Specialty | Diagnoses / | Referred By | Referred To | | | | | Procedures | Contact | Contact | + +--------+ + + + + | Authorized | | Sleep | Diagnoses | Ken Alvarenga | | | | Medicine | Sleep | Alex Frank | SLEEP | | | | | apnea, | DO [address] | DISORDERS | | | | | unspecified | [address] | [address] | | | | | type | [place] | [place] | | | | | | [address] | [address] | | | | | | Phone: | [place] | | | | | | [phone] | [address] | | | | | | Fax: | Phone: | | | | | | [phone] | [phone] | | | | | | | Fax: | | | | | | | [phone] | + +--------+ + + + + + + | Scheduling Instructions | + + | [facility] | + + Reason for Visit + [...] with | | 2019 | Visit | [facility] | E, DO [address] | anxiety (Primary | | | | MEDICAL CLINIC [address] | [facility], [place] | Dx); Sleep apnea, | | | | [address] [facility], | [address] | unspecified type; | | | | [place] [address] | [phone] | Boil, face | | | | [phone] | | | +--------+---------+ + + + [...] + | Blood Pressure | 152/84 | 07/15/2018830 PDT | + + + [...] 07/15/2018830 PDT | + + + + documented in this encounter Patient Instructions Patient Instructions Juan Ramon Wilson - 07/15/2018 8:30 PDT-Referral to [facility] for sleep consult, their office will call you to schedule appointment -Increase Fluoxetine 60 mg daily, continue taking your 40 mg with one 20 mg until the 40 mg is gone. Then start three 20 mg daily -Call Dr. Lee regarding drainage -Follow up 1 month, Fluoxetine P DT documented in this encounter Progress Notes Alex Alvarenga DO - 07/15/2018 0830 PDT Patient ID: Tatyana Guerrier is a 52 y.o. year old female Chief Complaint Patient presents with Medication Management Results Labs Fatigue Assessment: Depression with anxiety (Primary) - FLUoxetine HCl; Take 3 capsules by mouth Daily. Dispense: 270 capsule; Refill: 3 Sleep apnea, unspecified type - Ambulatory Referral to Sleep Medicine Boil, face Plan: -Referral to [facility] for sleep consult, their office will call [...] > 50% time spent in counseling. Subjective: HPI Tatyana presents to the clinic today to discuss [...] She saw a Dr. [facility] in [place], she had a drainage biopsied. The wound [...] She has a normal mood and affect. [place] Sleepiness Scale: Sitting and reading: High chance [...] dozing Total Score: 15 VICTOR HUGO Screen (STOPBAN) 07/15/2018 1. Have you had a Sleep [...] VICTOR HUGO Entered by Juan Ramon Wilson [facility], acting as scribe for Cameron Alvarenga [...] 2018 | Visit | | DO Zac | | | | | | [place] | | | | | | [address] | | | | | | [phone] | | | | | | | | +--------+---------+ + + + + +--------+ + + | Name | Priori | Associated Diagnoses | Order Schedule | | | ty | | | + +--------+ + + | Sleep Medicine, External - AMB | Routin | Sleep apnea, | Ordered: 07/15/2018 | | Referral | e | unspecified type | | + +--------+ + + documented as of this encounter Visit Diagnoses + + | Diagnosis | + + | 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
--- OUTSIDE RECORDS SUMMARY | ~2018-08-07 | XMS | Encounter Summary ---
Demographics + + + | Address | [address] | | | [place] [address] | + + + | Home Phone [...] Author | [facility] | | | and [place] | + + + | Organization | [facility] | | [...] [place] | | | | | [place] [address] | | + + + + + Care Team Providers + +------+ + | Care Lean Six Sigma Senior Specialist Name | Role | Phone | [...] Abnormal Lab | | 2019 | | [facility] | BOILERS AND PRESSURE VESSELS INSPECTOR [address] | | | | | WALK-IN CLINIC [address] | [place] [address] | | | | | [address] [place], | [phone] | | | | | [place] [address] | | | | | | [phone] | | | +--------+ + + + [...] [place] | | | | | | [address] | | | | | | [phone] | | | | | | | | +--------+---------+ + + + documented as of this encounter Visit Diagnoses Not on filedocumented in this encounter"
--- OUTSIDE RECORDS SUMMARY | ~2018-08-07 | XMS | Encounter Summary ---
Demographics + + + | Address | [address] | | | [place] [address] | + + + | Home Phone | | + + + | Preferred Language | Unknown | + + + | Marital Status | | + + + | Scientology Affiliation | 1038 | + + + | Race | Unknown | + + + | Ethnic Group | Unknown | + + + Author + + + | Author | [facility] | | | and [place] | + + + | Organization | [facility] | | | and [place] | + + + | Address | Unknown | + + + | Phone | Unavailable | + + + Support + + + + + | Name | Relationship | Address | Phone | + + + + + | Eric Guerrier | ECON | [address] | | | | | [place] [address] | | + + + + + Care Team Providers + +------+ + | Care Produce Production Team Member Name | Role | Phone | + [...] [place] | | | | | | [address] | [address] | | | | | | Phone: | [place] | | | | | | [phone] | [address] | | | | | | Fax: | Phone: | | | | | | [phone] | [phone] | | | | | | | Fax: | | | | | | | [phone] | + +--------+ + + + + [...] with | | 2019 | Visit | [facility] | E, DO [address] | anxiety (Primary | | | | MEDICAL CLINIC [address] | [facility] [place] | Dx); Sleep apnea, | | | | [address] [facility], | [address] | unspecified type; | | | | [place] [address] | [phone] | Boil, face | | | | [phone] | | | +--------+---------+ + + + [...] Ramon Wilson - 07/15/2018 8:30 PDT-Referral to [facility] for sleep consult, their office [...] She saw a Dr. [facility] in [place], she had a drainage biopsied. The wound [...] She has a normal mood and affect. [place] Sleepiness Scale: Sitting and reading: High chance [...] VICTOR HUGO Entered by Juan Ramon Wilson [facility], acting as scribe for Cameron Alvarenga [...] [place] | | | | | | [address] | | | | | | [phone] | | | | | | | [...]
--- OUTSIDE RECORDS SUMMARY | ~2018-08-07 | XMS | Encounter Summary ---
Demographics + + + | Address | [address] | | | [place] [address] | + + + | Home Phone [...] | Author | [facility] | | | and [place] | + + + | Organization | [facility] | | | and [place] | + + + | Address | Unknown | + + + | Phone | Unavailable | + + + Support + + + + + | Name | Relationship | Address | Phone | + + + + + | Eric Guerrier | ECON | [address] | | | | | [place] [address] | | + + + + + Care Team Providers + +------+ + | Care Mycology Teacher Name | Role | Phone | [...] | 2018 | | [facility] | RESEARCH MICROBIOLOGIST | | | | | MEDICAL CLINIC [address] | | | | | | [address] [facility] [place], | | | | | | [place] [address] | | | | | | [phone] | | | +--------+--------+ + + + [...] [place] | | | | | | [address] | | | | | | [phone] | | | | | | | | +--------+---------+ + + + documented as of this encounter Visit Diagnoses Not on filedocumented in this encounter"
[~2018-08-07 21:35] MED LIST changes: +LOSARTAN POTASS25 MG PO; +VALACYCLOVIR500 MG PO
--- OUTSIDE RECORDS SUMMARY | 2018-08-07 21:38 | XMS ---
PreManage Notification: DANIA LUZ Security Seal Mixing Operator Events No recent Security Events currently on file CRITERIA MET - [facility] PROVIDERS CLINTON MANRIQUEZ [facility] Current PHONE: Unknown Cameron Manriquez Current PHONE: Unknown Jeevan has no Care Guidelines for this patient. [place]ild[place] VISIT COUNT (12 MO.) [place] TOTAL 1 NOTE: Visits indicate total known visits. ED/UCC VISIT TRACKING (12 MO.) 08/07/2018 21:[address] [facility] [place] TYPE: Emergency COMPLAINT: - URINE PROBLEM INPATIENT VISIT TRACKING (12 MO.) No inpatient visits to display in this time frame [email or web address]
[2018-08-07] MEDS ORDERED: BACTRIM DS TAB1 EACH PO (22:17)
== END 2018-08-07 22:27 | disposition home or self-care (01) ==
LOC: ED 21:35
DX: N39.0 Urinary tract infection, site not specified (principal); I10 Essential (primary) hypertension; Z88.8 Allergy status to other drugs, medicaments and biological substances; Z91.048 Other nonmedicinal substance allergy status; Z79.899 Other long term (current) drug therapy
CPT/HCPCS: 81001; 96372; 99284; J1885; J2550

== ENCOUNTER 2019-12-12 07:34 | Emergency (ER) | payer OTHER ==
[~2019-12-12] VITALS: Ht 170.2 cm; Wt 109.8 kg
--- OUTSIDE RECORDS SUMMARY | ~2019-12-12 | XMS | Encounter Summary ---
Demographics + + + | Address | [address] | | | [place] [address] | + + + | Home Phone | | + + + | Preferred Language | Unknown | + + + | Marital Status | | + + + | Baptist Affiliation | 1038 | + + + | Race | White | + + + | Ethnic Group | Not or | + + + Author + + + | Author | [facility] | | | and [place] | + + + | Organization | [facility] | | | and [place] | + + + | Address | Unknown | + + + | Phone | Unavailable | + + + Support + + + + + | Name | Relationship | Address | Phone | + + + + + | Eric Guerrier | ECON | [address], | | | | | [place] [address] | | + + + + + Care Team Providers + +------+ + | Care Ride Mechanic Name | Role | Phone | + +------+ + | Alex Alvarenga DO | PCP | | + +------+ + Reason for Visit + +--------+ + | Reason | Onset | Comments | | | Date | | + +--------+ + | Medication Refill | 03/28/ | | | | 2019 | | + +--------+ + Encounter Details +--------+--------+ + + + | Date | Type | Department | Care Team | Description | +--------+--------+ + + + | 03/28/ | Refill | [facility] | Alex Alvarenga | Medication Refill | | 2019 | | [facility] | E, DO [address] | | | | | MEDICAL CLINIC [address] | [place], [place] | | | | | [address] [place], | [address] | | | | | [place] [address] | [phone] | | | | | [phone] | | | +--------+--------+ + + + Social History + +-------+ +--------+------+ | Tobacco Use | Types | Packs/Day | Years | Date | | | | | Used | | + +-------+ +--------+------+ | Never Smoker | | | | | + +-------+ +--------+------+ + +---+---+---+ | Smokeless Tobacco: | | | | | Never Used | | | | + +---+---+---+ + + +---------+ + | Alcohol Use | Drinks/Week | oz/Week | Comments | + + +---------+ + | No | 0 Glasses of wine | 0.0 | | | | 0 Cans of beer 0 | | | | | Shots of liquor 0 | | | | | Standard drinks or | | | | | equivalent | | | + + +---------+ + + + + | Sex Assigned at | Date Recorded | | | | + + + | Not on file | | + + + documented as of this encounter Miscellaneous Notes Telephone Encounter - Anastasiia Woodall CMA - 03/28/2019 1:19 PM PST Recent Visits 08/09/2018 Concussion without loss of consciousness, initial encounter [facility] Alex Alvarenga, Office Visit 07/15/2018 Depression with anxiety [facility] Alex Alvarenga, DO Office Visit 01/01/2018 Hypertension, unspecified type [facility] Alex Alvarenga, DO Office Visit Pharmacy Confirmed:[facility]. Last refill:02/25/19 for 30 day supply per PDMP Anastasiia Wooadll CMA documented in this e ncounter Plan of Treatment +--------+---------+ + + + | Date | Type | Specialty | Care Team | Description | +--------+---------+ + + + | 12/21/ | Office | Primary Care | Alex Alvarenga | | | 2019 | Visit | | DO Zac [address] | | | | | | [place] | | | | | | [address] | | | | | | [phone] | | | | | | | | +--------+---------+ + + + documented as of this encounter Visit Diagnoses Not on filedocumented in this encounter"
--- OUTSIDE RECORDS SUMMARY | ~2019-12-12 | XMS | Encounter Summary ---
Demographics + + + | Address | [address] | | | [place] [address] | + + + | Home Phone | | + + + | Preferred Language | Unknown | + + + | Marital Status | | + + + | Mandaeism Affiliation | 1038 | + + + | Race | White | + + + | Ethnic Group | Not or | + + + Author + + + | Author | [facility] | | | and [place] | + + + | Organization | [facility] | | | and [place] | + + + | Address | Unknown | + + + | Phone | Unavailable | + + + Support + + + + + | Name | Relationship | Address | Phone | + + + + + | Eric Guerrier | ECON | [address], | | | | | [place] [address] | | + + + + + Care Team Providers + +------+ + | Care Manager Of Distribution Name | Role | Phone | + +------+ + | Alex Alvarenga DO | PCP | | + +------+ + Reason for Visit +---------+--------+ + | Reason | Onset | Comments | | | Date | | +---------+--------+ + | Results | 10/16/ | | | | 2020 | | +---------+--------+ + Encounter Details +--------+ + + + + | Date | Type | Department | Care Team | Description | +--------+ + + + + | 10/16/ | Telephone | [facility] | Alex Alvarenga | Results | | 2020 | | [facility] | E, DO [address] | | | | | MEDICAL CLINIC [address] | [place], [place] | | | | | [address] [place], | [address] | | | | | [place] [address] | [phone] | | | | | [phone] | | | +--------+ + + + + Social History + +-------+ [...] this encounter Miscellaneous Notes Telephone Encounter - Stacey Berry - 11/05/2019 2:30 PM PDTLeft VM to have pt schedule. Stacey Berry elephone Encounter - Zoila Jovel CC CMA - 10/20/2019 12:42 PM PDTPlease call and schedule virtual visit as per Dr Nura Alvarenga. ALYSSIA Larson CMA elephone Encounte r - Alex Alvarenga DO - 10/20/2019 7:02 AM PDTLet's set up virtual/phone visit to disc uss a plan, workup, followup. 7 :02 AM PDTTelephone Encounter - Anastasiia Woodall CMA - 10/17/2019 11:21 AM PDTMade contact w robel pt regarding lab results. Pt was informed of most recent result notes. Pt acknowledged. Pt is concerned about how often she is getting UTIs. Pt wants to be put back on intermediate accountant a ntibiotics. Pt wanted this to go to Dr Alvarenga rather then make an apt out a ways. Anastasiia Woodall CMA elephone Encounter - Anastasiia Woodall CMA - 10/17/2019 11:20 AM PDT----- Message from Brian Cortez DNP sent a t 10/17/2019 9:22 AM PDT ----- Current antibiotics should be effective based on urine culture results.Electronically dori d by Anastasiia Woodall CMA at 10/17/2019 11:20 AM PDTdocumented in this encounter Plan of Treatment +--------+---------+ + + + | Date | Type | Specialty | Care Team | Description | +--------+---------+ + + + | 12/21/ | Office | Primary Care | Alex Alvarenga | | | 2019 | Visit | | DO Zac | | | | | | [place] | | | | | | [address] | | | | | | [phone] | | | | | | | | +--------+---------+ + + + documented as of this encounter Visit Diagnoses Not on filedocumented in this encounter"
--- OUTSIDE RECORDS SUMMARY | ~2019-12-12 | XMS | Encounter Summary ---
Demographics + + + | Address | [address] | | | [place] [address] | + + + | Home Phone | | + + + | Preferred Language | Unknown | + + + | Marital Status | | + + + | Methodist Affiliation | 1038 | + + + | Race | White | + + + | Ethnic Group | Not or | + + + Author + + + | Author | [facility] | | | and [place] | + + + | Organization | [facility] | | [...] [place], | | | | | [place] [address] | | + + + + + Care Team Providers + +------+ + | Care Piercing Mill Operator Name | Role | Phone | + +------+ + | Alex Alvarenga DO | PCP | | + +------+ + Reason for Visit + +--------+ + | Reason | Onset | Comments | | | Date | | + +--------+ + | Medication Refill | 01/08/ | | | | 2017 | | + +--------+ + Encounter Details +--------+--------+ + + + | Date | Type | Department | Care Team | Description | +--------+--------+ + + + | 01/08/ | Refill | [facility] | Zoila Ruff, CC | Medication Refill | | 2017 | | [facility] | [facility] | | | | | MEDICAL CLINIC [address] | | | | | | [address] [facility], | | | | | | [place] [address] | | | | | | [phone] | | | +--------+--------+ + + + [...] + + +---------+ + | No | | | | + + +---------+ + + + + | Sex Assigned at | Date Recorded | | | | + + + | Not on file | | + + + documented as of this encounter Miscellaneous Notes Telephone Encounter - Zoila Ruff CC CMA - 01/08/2018 9:45 AM PDTLAST OFFICE VISIT 02/2018. ALYSSIA Larson CMA documented in this encounter Plan of Treatment +--------+---------+ + + + | Date | Type | Specialty | Care Team | Description | +--------+---------+ + + + | 12/21/ | Office | Primary Care | Alex Alvarenga | | | 2019 | Visit | | E, DO [address] | | | | | | [place] | | | | | | [address] | | | | | | [phone] | | | | | | | | +--------+---------+ + + + documented as of this encounter Visit Diagnoses Not on filedocumented in this encounter"
--- OUTSIDE RECORDS SUMMARY | ~2019-12-12 | XMS | Encounter Summary ---
Demographics + + + | Address | [address] | | | [place] [address] | + + + | Home Phone | | + + + | Preferred Language | Unknown | + + + | Marital Status | | + + + | Yarsanism Affiliation | 1038 | + + + | Race | White | + + + | Ethnic Group | Not or | + + + Author + + + | Author | [facility] | | | and [place] | + + + | Organization | [facility] | | | and [place] | + + + | Address | Unknown | + + + | Phone | Unavailable | + + + Support + + + + + | Name | Relationship | Address | Phone | + + + + + | Eric Guerrier | ECON | [address] [place], | | | | | [place] [address] | | + + + + + Care Team Providers + +------+ + | Care Trading Assistant Name | Role | Phone | + +------+ + | Alex Alvarenga DO | PCP | | + +------+ + Reason for Visit + +--------+ + | Reason | Onset | Comments | | | Date | | + +--------+ + | Medication Refill | 11/21/ | | | | 2017 | | + +--------+ + Encounter Details +--------+--------+ + + + | Date | Type | Department | Care Team | Description | +--------+--------+ + + + | 11/21/ | Refill | [facility] | Alex Alvarenga | Medication Refill | | 2017 | | [facility] | E, DO [address] | | | | | MEDICAL CLINIC [address] | [place], [place] | | | | | [address] [place], | [address] | | | | | [place] [address] | [phone] | | | | | [phone] | | | +--------+--------+ + + + Social History + +-------+ +--------+------+ | Tobacco Use | Types | Packs/Day | Years | Date | | | | | Used | | + +-------+ +--------+------+ | Never Assessed | | | | | + +-------+ +--------+------+ + + + | Sex Assigned at | Date Recorded | | | | + + + | Not on file | | + + + documented as of this encounter Miscellaneous Notes Telephone Encounter - Alyce Stewart CC CMA - 11/21/2017 9:14 AM PDTPt has an est care appointment with [facility] on 01/01/18Electronically signed by ALYSSIA Pires CMA at 11/21 9:14 AM PDTTelephone Encounter - Shara Tello - 11/21/2017 8:51 AM PDTPt is c alling to request a refill for Ambien 5mg tablets 90 qty. Pt states she has not had them ref illed since Colette switched over to our clinic and she will be out in two days. Please call pt with any questions or concerns. Pharmacy is [facility] in [place] . Thanks, Shara Moore documented in this en counter Plan of Treatment +--------+---------+ + + + | Date | Type | Specialty | Care Team | Description | +--------+---------+ + + + | 12/21/ | Office | Primary Care | Alex Alvarenga | | | 2019 | Visit | | DO [address] | | | | | | [place] | | | | | | [address] | | | | | | [phone] | | | | | | | | +--------+---------+ + + + documented as of this encounter Visit Diagnoses Not on filedocumented in this encounter"
--- OUTSIDE RECORDS SUMMARY | ~2019-12-12 | XMS | Encounter Summary ---
Demographics + + + | Address | [address] | | | [place] [address] | + + + | Home Phone | | + + + | Preferred Language | Unknown | + + + | Marital Status | | + + + | Buddhist Affiliation | 1038 | + + + | Race | White | + + + | Ethnic Group | Not or | + + + Author + + + | Author | [facility] | | | and [place] | + + + | Organization | [facility] | | | and [place] | + + + | Address | Unknown | + + + | Phone | Unavailable | + + + Support + + + + + | Name | Relationship | Address | Phone | + + + + + | Eric Guerrier | ECON | [address] [place], | | | | | [place] [address] | | + + + + + Care Team Providers + +------+ + | Care Environmental Services Aide Name | Role | Phone | + +------+ + | Alex Alvarenga DO | PCP | | + +------+ + Reason for Visit +--------+--------+ + | Reason | Onset | Comments | | | Date | | +--------+--------+ + | Other | 05/04/ | Insurance information needed | | | 2014 | | +--------+--------+ + Encounter Details +--------+ + + + + | Date | Type | Department | Care Team | Description | +--------+ + + + + | 05/04/ | Telephone | [facility] | [facility] | Other (Insurance | | 2014 | | ORTHOPEDIC SURGERY | MD Tre [address] | information needed) | | | | [address] | [place] | | | | | [place] | [id number] | | | | | [address] | | | | | | [phone] | | | +--------+ + + + [...] this encounter Miscellaneous Notes Telephone Encounter - Elsa Toney - 05/04/2014 1:58 PM PSTCalled [facility] to ask for updated insurance/demographics. Unable to read insurance number. Left voicemai l for Rosette Downing, [place] [phone] or [phone]. Voicemail message stated that she will be back in the office tomorrow 05/04/2014. Thank you. Electronically s igned by Elsa Toney at 05/04/2014 2:06 PM PSTdocumented in this encounter Plan of Treatment +--------+---------+ + + + | Date | Type | Specialty | Care Team | Description | +--------+---------+ + + + | 12/21/ | Office | Primary Care | Alex Alvarenga | | | 2019 | Visit | | DO [address] | | | | | | [place] | | | | | | [address] | | | | | | [phone] | | | | | | | | +--------+---------+ + + + documented as of this encounter Visit Diagnoses Not on filedocumented in this encounter"
--- OUTSIDE RECORDS SUMMARY | ~2019-12-12 | XMS | Encounter Summary ---
Demographics + + + | Address | [address] | | | [place] [address] | + + + | Home Phone | | + + + | Preferred Language | Unknown | + + + | Marital Status | | + + + | Moravian Affiliation | 1038 | + + + | Race | White | + + + | Ethnic Group | Not or | + + + Author + + + | Author | [facility] | | | and [place] | + + + | Organization | [facility] | | [...] [place], | | | | | [place] [address] | | + + + + + Care Team Providers + +------+ + | Care Photography Sales Associate Name | Role | Phone | + +------+ + | Alex Alvarenga DO | PCP | | + +------+ + Reason for Referral Self-referral (Routine) +--------+--------+ + + + + | Status | Reason | Specialty | Diagnoses / | Referred By | Referred To | | | | | Procedures | Contact | Contact | +--------+--------+ + + + + | Closed | | Sleep | Diagnoses | [facility], | [facility] | | | Medicine | Sleep | Alex Frank, | SLEEP | | | | | apnea, | DO [address] | DISORDERS | | | | | unspecified | [address] | [address] | | | | | type | [place], [place] | [place] | | | | | | [address] | [address] | | | | | | Phone: | [place], [place] | | | | | | [phone] | [address] | | | | | | Fax: | Phone: | | | | | | [phone] | [phone] | | | | | | | Fax: | | | | | | | [phone] | +--------+--------+ + + + + + + | Scheduling Instructions | + + | [facility] | + + Reason for Visit + + + | Reason | Comments | + + + | Medication | | | Management | | + + + | Results | Labs | + + + | Fatigue | | + + + Encounter Details +--------+---------+ + + + | Date | Type | Department | Care Team | Description | +--------+---------+ + + + | 07/15/ | Office | [facility] | Alex Alvarenga | Depression with | | 2019 | Visit | [facility] | E, DO [address] | anxiety (Primary | | | | MEDICAL CLINIC [address] | [place], [place] | Dx); Sleep apnea, | | | | [address] [facility], | [address] | unspecified type; | | | | [place] [address] | [phone] | [place] | | | | [phone] | | | +--------+---------+ + + + Social History + +-------+ +--------+------+ | Tobacco Use | Types | Packs/Day | Years | Date | | | | | Used | | + +-------+ +--------+------+ | Never Smoker | | | | | + +-------+ +--------+------+ + +---+---+---+ | Smokeless Tobacco: | | | | | Never Used | | | | + +---+---+---+ + + | Tobacco Cessation: Counseling Given: No | + + + + +---------+ + | Alcohol Use [...] + + documented as of this encounter Last Filed Vital Signs + + + + + | Vital Sign | Reading | Time Taken | Comments | + + + + + | Blood Pressure | 152/84 | 07/15/2018 8:31 AM | Large cuff, right | | | | PDT | arm | + + + + + | Pulse | 73 | 07/15/2018 8:31 AM | Reg | | | | PDT | | + + + + + | Temperature | 36.7 C (98.1 F) | 07/15/2018 8:31 AM | | | | | PDT | | + + + + + | Respiratory Rate | 16 | 07/15/2018 8:31 AM | | | | | PDT | | + + + + + | Oxygen Saturation | 98% | 07/15/2018 8:31 AM | RA | | | | PDT | | + + + + + | Inhaled Oxygen | - | - | | | Concentration | | | | + + + + + | Weight | 116.2 kg (256 lb 3.2 | 07/15/2018 8:31 AM | | | | oz) | PDT | | + + + + + | Height | 167.6 cm (5' 6") | 07/15/2018 8:31 AM | Stated | | | | PDT | | + + + + + | Body Mass Index | 41.35 | 07/15/2018 8:31 AM | | | | | PDT | | + + + + + documented in this encounter Patient Instructions Patient Instructions Juan Ramon Wilson - 07/15/2018 8:30 AM PDT-Referral to [facility] for eep consult, their office will call you to schedule appointment -Increase Fluoxetine 60 mg daily, continue taking your 40 mg with one 20 mg until the 40 mg is gone. Then start three 20 mg daily -Call Dr. Lee regarding drainage -Follow up 1 month, Fluoxetine A M PDT documented in this encounter Progress Notes Alex Alvarenga DO - 07/15/2018 8:30 AM PDT Patient ID: Tatyana Guerrier is a 52 y.o. year old female Chief Complaint Patient presents with Medication Management Results Labs Fatigue Assessment: Depression with anxiety (Primary) - FLUoxetine HCl; Take 3 capsules by mouth Daily. Dispense: 270 capsule; Refill: 3 Sleep apnea, unspecified type - Ambulatory Referral to Sleep Medicine Boil, face Plan: -[facility]erral to [facility] for [facility] consult, their office will call you to schedule appointme nt -Increase Fluoxetine 60 mg daily, continue taking your 40 mg with one 20 mg until the 40 mg is gone. Then start three 20 mg daily -Call Dr. Lee regarding drainage from chin wound -Follow up 1 month, Fluoxetine increase; sleep medicine consult if done. 40 minute visit with > 50% time spent in counseling. Subjective: ALY[place] Joe presents to the clinic today to discuss medication management, recent blood work, and fatigue. Reviewed blood work with her. Everything is normal. She was worried about her home readings of weight. Her weight at home is 10 pounds higher then today office visit weight. She has a lot of fatigue. She previously had a sleep study 10 years ago. She is currently taking Ambi en 5 mg nightly, if she doesn't take her Ambien she will be up. She also has a lot home life stress. Her appetite has increased. She thinks that her Fluoxetine may need to be increased . She saw a Dr. [facility] in [place], she had a drainage biopsied. The wound was stitched up and she did not disolve the stitches so she had to go back in to have it opened back up. She is still having drainage. I advised her to contact Dr. Lee. Current Outpatient Prescriptions Medication Sig Dispense Refill Calcium Carbonate (CALCIUM 600 PO) Take 1 tablet by mouth Daily. estradiol (ESTRACE) 1 mg tablet Take 1 mg by mouth Daily. FLUoxetine (PROZAC) 40 MG capsule Take 1 capsule by mouth Daily. 90 capsule 3 losartan (COZAAR) 25 mg tablet Take 1 tablet by mouth Daily. 90 tablet 3 Multiple Vitamin (MULTIVITAMINS PO) Take 1 tablet by mouth Daily. valACYclovir (VALTREX) 500 mg tablet Take 500 mg by mouth 2 times daily. zolpidem (AMBIEN) 5 mg tablet Take 1 tablet by mouth nightly. 30 tablet 3 No current facility-administered medications for this visit. Review of Systems Constitutional: Positive for appetite change and fatigue. Respiratory: Negative for shortness of breath. Cardiovascular: Negative for chest pain and palpitations. Genitourinary: Negative. Skin: Boil on her chin still draining. Psychiatric/Behavioral: Home life stress. Objective: Vitals: BP 152/84 Comment: Large cuff, right arm | Pulse 73 Comment: Reg | Temp 36.7 C (98.1 F) (Oral) | Resp 16 | Ht 1.676 m (5' 6") Comment: Stated | Wt 116.2 kg (256 lb 3.2 oz) | LM P (LMP Unknown) | SpO2 98% Comment: RA | ? No | BMI 41.35 kg/m Physical Exam Constitutional: She is oriented to person, place, and time. She appears well-developed and well-nourished. No distress. Eyes: EOM are normal. Cardiovascular: Normal rate, regular rhythm and normal heart sounds. Pulmonary/Chest: Effort normal and breath sounds normal. Neurological: She is alert and oriented to person, place, and time. Psychiatric: She has a normal mood and affect. [place] Sleepiness Scale: Sitting and reading: High chance of dozing Watching TV: Moderate chance of dozing Sitting, inactive in a public place: Slight chance of dozing As a passenger in a car for an hour without a break: High chance of dozing Lying down to rest in the afternoon: High chance of dozing Sitting and talking to someone: Would never doze Sitting quietly after a lunch without alcohol: Moderate chance of dozing In a car, while stopped for a few minutes in traffic: Slight chance of dozing Total Score: 15 VICTOR HUGO Screen ([facility] 07/15/2018 1. Have you had a Sleep Study? Yes Where was your study performed [facility] Have you been diagnosed with Sleep Apnea? No 1. Do you snore loudly? No 2. Do you often feel tired, fatigued, or sleepy during daytime? Yes 3. Has anyone observed you stop breathing during your sleep? No 4. Do you have, or are you being treated for, high blood pressure? Yes 5. BMI more than 35? Yes 7. Age (any age over 50 = Yes) 52 8. Neck Circumference > 15 " (40cm)? No 6. Gender male? No Total Score 4 Risk for Obstructive Sleep Apnea Suspected Risk for VICTOR HUGO Entered by Juan Ramon Wilson [facility], acting as scribe for Cameron Alvarenga D.O. The documentation recorded by the scribe accurately reflects the service I personally perfo rmed and the decisions made by me. documented in this encounter Plan of Treatment +--------+---------+ + + + | Date | Type | Specialty | Care Team | Description | +--------+---------+ + + + | 12/21/ | Office | Primary Care | Alex Alvarenga | | | 2019 | Visit | | DO [address] | | | | | | [place] | | | | | | [address] | | | | | | [phone] | | | | | | | | +--------+---------+ + + + + + +--------+ + + | Name | Type | Priori | Associated Diagnoses | Order Schedule | | | | ty | | | + + +--------+ + + | Sleep Medicine, | Outpatient | Routin | Sleep apnea, | Ordered: 07/15/2018 | | External - AMB | Referral | e | unspecified type | | | Referral | | | | | + + +--------+ + + documented as of this encounter Visit Diagnoses + + | Diagnosis | + + | 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
--- OUTSIDE RECORDS SUMMARY | ~2019-12-12 | XMS | Encounter Summary ---
Demographics + + + | Address | [address] | | | [place] [address] | + + + | Home Phone | | + + + | Preferred Language | Unknown | + + + | Marital Status | | + + + | Lutheran Affiliation | 1038 | + + + | Race | White | + + + | Ethnic Group | Not or | + + + Author + + + | Author | [facility] | | | and [place] | + + + | Organization | [facility] | | | [...] [place], | | | | | [place] [address] | | + + + + + Care Team Providers + +------+ + | Care Anthropology Instructor Name | Role | Phone | + +------+ + | Alex Alvarenga DO | PCP | | + +------+ + Reason for Visit + +--------+ + | Reason | Onset | Comments | | | Date | | + +--------+ + | Medication Refill | 05/13/ | | | | 2018 | | + +--------+ + Encounter Details +--------+--------+ + + + | Date | Type | Department | Care Team | Description | +--------+--------+ + + + | 05/13/ | Refill | [facility] | Zoila Ruff, CC | Medication Refill | | 2018 | | [facility] | [facility] | | | | | MEDICAL CLINIC [address] | | | | | | [address] [facility] [place], | | | | | | [place] [address] | | | | | | [phone] | | | +--------+--------+ + + + [...] Encounter - Zoila Ruff CC CMA - 05/13/2018 10:59 AM PSTLAST OFFICE VISIT 02/2018. ALYSSIA Larson CMA documented [...] [place] | | | | | | [address] | | | | | | [phone] | | | | | | | | +--------+---------+ + + + documented as of this encounter Visit Diagnoses Not on filedocumented in this encounter"
--- OUTSIDE RECORDS SUMMARY | ~2019-12-12 | XMS | Encounter Summary ---
Demographics + + + | Address | [address] | | | [place] [address] | + + + | Home Phone | | + + + | Preferred Language | Unknown | + + + | Marital Status | | + + + | Hindu Affiliation | 1038 | + + + | Race | White | + + + | Ethnic Group | Not or | + + + Author + + + | Author | [facility] | | | and [place] | + + + | Organization | [facility] | | | and [place] | + + + | Address | Unknown | + + + | Phone | Unavailable | + + + Support + + + + + | Name | Relationship | Address | Phone | + + + + + | Eric Guerrier | ECON | [address], | | | | | [place] [address] | | + + + + + Care Team Providers + +------+ + | Care Civil Transportation Engineer Name | Role | Phone | + +------+ + PCP | Unavailable | + +------+ + Encounter Details +--------+ + + + + | Date | Type | Department | Care Team | Description | +--------+ + + + + | 10/30/ | [facility] | [facility] | | | | 2006 | Encounter | MED CTR XRAY [address] | | | | | | [address] | | | | | | [place] [address] | | | | | | [phone] | | | +--------+ + + + [...] Care | Alex Alvarenga | | | 2020 | Visit | | [facility] [address] | | | | | | [place] | | | | | | [address] | | | | | | [phone] | | | | | | | | +--------+---------+ + + + documented as of this encounter Visit Diagnoses Not on filedocumented in this encounter"
--- OUTSIDE RECORDS SUMMARY | ~2019-12-12 | XMS | Encounter Summary ---
Demographics + + + | Address | [address] | | | [place] [address] | + + + | Home Phone | | + + + | Preferred Language | Unknown | + + + | Marital Status | | + + + | Synagogue Affiliation | 1038 | + + + | Race | White | + + + | Ethnic Group | Not or | + + + Author + + + | Author | [facility] | | | and [place] | + + + | Organization | [facility] | | | [...] [place], | | | | | [place] [address] | | + + + + + Care Team Providers + +------+ + | Care Jewel Hole Cornerer Name | Role | Phone | + +------+ + | Alex Alvarenga DO | PCP | | + +------+ + Reason for Visit +---------+--------+ + | Reason | Onset | Comments | | | Date | | +---------+--------+ + | Results | 10/23/ | | | | 2019 | | +---------+--------+ + Encounter Details +--------+ + + + + | Date | Type | Department | Care Team | Description | +--------+ + + + + | 10/23/ | Telephone | [facility] | Alex Alvarenga | Results | | 2019 | | [facility] | E, DO [address] | | | | | MEDICAL CLINIC [address] | [place], [place] | | | | | [address] [place], | [address] | | | | | [place] [address] | [phone] | | | | | [phone] | | | +--------+ + + + [...] Encounter - Zoila Ruff CC CMA - 10/23/2018 3:[address] [facility] and spoke with delfina Charlton X-Ray has not been read yet by the radiolo gist. Patient informed. ALYSSIA Larson CMA eleSushila Day N - 10/23/2018 2:39 PM PDTPt is calling to see if Dr. Alvarenga has received [facility]ray results from [facility]'s thumb Xray Please call pt to discuss Thanks SUSHILA documented in t his encounter Plan of Treatment +--------+---------+ + + + | Date | Type | Specialty | Care Team | Description | +--------+---------+ + + + | 12/21/ | Office | Primary Care | Alex Alvarenga | | | 2019 | Visit | | E, DO [address] | | | | | | [place] | | | | | | [address] | | | | | | [phone] | | | | | | | | +--------+---------+ + + + documented as of this encounter Visit Diagnoses Not on filedocumented in this encounter"
--- OUTSIDE RECORDS SUMMARY | ~2019-12-12 | XMS | Encounter Summary ---
Demographics + + + | Address | [address] | | | [place] [address] | + + + | Home Phone | | + + + | Preferred Language | Unknown | + + + | Marital Status | | + + + | Pentecostalism Affiliation | 1038 | + + + | Race | White | + + + | Ethnic Group | Not or | + + + Author + + + | Author | [facility] | | | and [place] | + + + | Organization | [facility] | | | and [place] | + + + | Address | Unknown | + + + | Phone | Unavailable | + + + Support + + + + + | Name | Relationship | Address | Phone | + + + + + | Eric Guerrier | ECON | [address] [place], | | | | | [place] [address] | | + + + + + Care Team Providers + +------+ + | Care Tax Advisor Name | Role | Phone | + +------+ + PCP | Unavailable | + +------+ + Encounter Details +--------+ + + + + | Date | Type | Department | Care Team | Description | +--------+ + + + + | 08/15/ | [facility] | [facility] | | | | 2006 | Encounter | MED CTR XRAY [address] | | | | | | [address] | | | | | | [place] [address] | | | | | | [phone] | | | +--------+ + + + [...] [place] | | | | | | [address] | | | | | | [phone] | | | | | | | | +--------+---------+ + + + documented as of this encounter Visit Diagnoses Not on filedocumented in this encounter"
--- OUTSIDE RECORDS SUMMARY | ~2019-12-12 | XMS | Clinical Summary ---
Demographics + + + | Address | [address] | | | [place] [address] | + + + | Home Phone | | + + + | Preferred Language | Unknown | + + + | Marital Status | | + + + | Jehovah'S Witness Affiliation | 1038 | + + + | Race | White | + + + | Ethnic Group | Not or | + + + Author + + + | Author | [facility] | | | and [place] | + + + | Organization | [facility] | | | and [place] | + + + | Address | Unknown | + + + | Phone | Unavailable | + + + Support + + + + + | Name | Relationship | Address | Phone | + + + + + | Eric Guerrier | ECON | [address] [place], | | | | | [place] [address] | | + + + + + Care Team Providers + +------+ + | Care Heading Saw Operator Name | Role | Phone | + +------+ + | Alex Alvarenga DO | PCP | | + +------+ + Allergies No Known Allergies Medications + + + +---------+------+------+-------+ | Medication | Sig | Dispensed | Refills | Star | End | Statu | | | | | | t | Date | s | | | | | | Date | | | + + + +---------+------+------+-------+ | Calcium Carbonate | Take 1 tablet by | | 0 | | | Activ | | (CALCIUM 600 PO) | mouth Daily. | | | | | e | + + + +---------+------+------+-------+ | estradiol | Take 1 mg by mouth | | 0 | | | Activ | | (ESTRACE) 1 mg | Daily. | | | | | e | | tablet | | | | | | | + + + +---------+------+------+-------+ | Multiple Vitamin | Take 1 tablet by | | 0 | | | Activ | | (MULTIVITAMINS PO) | mouth Daily. | | | | | e | + + + +---------+------+------+-------+ | buPROPion | Take 1 tablet by | 60 | 4 | 02/2 | | Activ | | (WELLBUTRIN SR) 100 | mouth 2 times daily. | tablet | | 5/20 | | e | | mg 12 hr | | | | 20 | | | | tabletIndications: | | | | | | | | Adjustment disorder | | | | | | | | with mixed anxiety | | | | | | | | and depressed mood | | | | | | | + + + +---------+------+------+-------+ | valACYclovir | Take 1 tablet by | 180 | 0 | 04/0 | | Activ | | (VALTREX) 500 mg | mouth 2 times daily. | tablet | | 6/20 | | e | | tablet | | | | 20 | | | + + + +---------+------+------+-------+ | zolpidem (AMBIEN) | TAKE ONE TABLET BY | 30 | 3 | 05/1 | | Activ | | 5 mg tablet | MOUTH EVERY DAY AT | tablet | | 1/20 | | e | | | BEDTIME | | | 20 | | | + + + +---------+------+------+-------+ | FLUoxetine | Take 3 capsules by | 270 | 3 | 06/0 | | Activ | | (PROZAC) 20 mg | mouth Daily. | capsule | | 2/20 | | e | | capsuleIndications: | | | | 20 | | | | Depression with | | | | | | | | anxiety | | | | | | | + + + +---------+------+------+-------+ | triamcinolone | MIX 1 PART TO 1 WITH | 454 g | 0 | 06/2 | | Activ | | (KENALOG) 0.1% cream | EUCERIN AND APPLY | | | 3/20 | | e | | | TO AFFECTED AREA(S) | | | 20 | | | | | TWO TIMES A DAY | | | | | | | | NEEDED - AVOID FACE | | | | | | | | AND GROIN AREA | | | | | | + + + +---------+------+------+-------+ | nitrofurantoin | Take 1 capsule by | 90 | 3 | 08/1 | | Activ | | (MACRODANTIN) 50 mg | mouth Daily. | capsule | | 1/20 | | e | | capsuleIndications: | Indications: Simple | | | 20 | | | | Uncomplicated | Infection of the | | | | | | | Urinary Tract | Urinary Tract | | | | | | | Infection | | | | | | | + + + +---------+------+------+-------+ | losartan (COZAAR) | Take 1 tablet by | 30 | 0 | 08/2 | | Activ | | 50 mg | mouth Daily. | tablet | | 0/20 | | e | | tabletIndications: | | | | 20 | | | | Hypertension, | | | | | | | | unspecified type | | | | | | | + + + +---------+------+------+-------+ | losartan (COZAAR) | Take 1 tablet by | 90 | 3 | 04/24 | 11/22 | Disco | | 25 mg tablet | mouth Daily. | tablet | | 07/10 | 0 | ntinu | | | | | | 20 | 20 | ed | + + + +---------+------+------+-------+ Active Problems + + + | Problem | Noted Date | + + + | Pyogenic granuloma | 03/04/2019 | + + + | Depression with anxiety | 07/15/2018 | + + + | Boil, face | 01/01/2018 | + + + | Sleep apnea | 01/01/2018 | + + + | Post-traumatic osteoarthritis of left ankle | 01/01/2018 | + + + | Hypertension | | + + + | Aphthous ulcer | | + + + | Trigeminal neuralgia | | + + + Encounters +--------+ + + + + | Date | Type | Specialty | Care Team | Description | +--------+ + + + + | 12/10/ | Telephone | Primary Care | Alex Alvarenga | Other (talk about | | 2019 | | | E, DO | HBP & wearing a | | | | | | mask) | +--------+ + + + + | 12/01/ | Office | Primary Care | Alex Alvarenga | Frequent UTI | | 2019 | Visit | | E, DO | (Primary Dx); | | | | | | Shoulder lesion, | | | | | | left | +--------+ + + + + | 11/04/ | Telephone | Primary Care | Alex Alvarenga | Appointment | | 2019 | | | E, DO | | +--------+ + + + + | 10/16/ | Telephone | Primary Care | Alex Alvarenga | Results | | 2020 | | | E, DO | | +--------+ + + + + | 10/13/ | Refill | Primary Care | Alex Alvarenga | Medication Refill | | 2020 | | | E, DO | | +--------+ + + + + | 10/13/ | Telephone | Primary Care | Alex Alvarenga | Lab Order (Patient | | 2020 | | | E, DO | requesting an order | | | | | | for a UA be sent to | | | | | | [facility] in | | | | | | [place]); Lab | | | | | | Order ([facility] | | | | | | didn't receive UA | | | | | | order, patient would | | | | | | like you to call | | | | | | and give a verbal | | | | | | order) | +--------+ + + + + | 09/22/ | Refill | Primary Care | Zoila Ruff CC | Medication Refill | | 2020 | | | MANAGER PLANT | | +--------+ + + + + from Last 3 Months Immunizations + + + + | Name | Administration Dates | Next Due | + + + + | INFLUENZA PF | 01/01/2018, 01/09/2017 | | | QUAD(PED/ADOL/ADULT) | | | | ,PSKT or VIAL | | | + + + + | INFLUENZA QUADR | 02/17/2013 | | | W/PRES | | | | (PED/ADOL/ADULT) | | | | MULTIDOSE | | | + + + + | INFLUENZA, | 01/10/2017, 01/03/2016, 12/16/2014, | | | UNSPECIFIED | 12/15/2013, 02/08/2012, 01/17/2011, | | | FORMULATION | 01/21/2010 | | + + + + | MMR, 2 DOSE | 01/10/1993 | | | (PED/ADULT) | | | + + + + | TDAP, (ADOL/ADULT) | 01/01/2018, 12/05/2005 | | + + + + Family History + + + + + | Medical History | Relation | Name | Comments | + + + + + | Hemochromatosis | Mother | | | + + + + + | Diabetes | Other | Grandaug | Type 1 | | | | hter | | + + + + + + + +--------+ + | Relation | Name | Status | Comments | + + +--------+ + | Mother | | | | + + +--------+ + | Other | Grandaugh | Alive | | | | ter | | | + + +--------+ + Social History + +-------+ +--------+------+ | [...] on file | | + + + Last Filed Vital Signs + + + + + | Vital Sign | Reading | Time Taken | Comments | + + + + + | Blood Pressure | 132/76 | 12/02/2019 4:47 PM | Right radial | | | | PDT | | + + + + + | Pulse | 76 | 12/02/2019 4:47 PM | | | | | PDT | | + + + + + | Temperature | 37.1 C (98.7 F) | 12/02/2019 4:47 PM | | | | | PDT | | + + + + + | Respiratory Rate | 17 | 12/02/2019 4:47 PM | | | | | PDT | | + + + + + | Oxygen Saturation | 97% | 12/02/2019 4:47 PM | | | | | PDT | | + + + + + | Inhaled Oxygen | - | - | | | Concentration | | | | + + + + + | Weight | 117 kg (258 lb) | 12/02/2019 4:47 PM | | | | | PDT | | + + + + + | Height | 170.2 cm (5' 7") | 12/02/2019 4:47 PM | | | | | PDT | | + + + + + | Body Mass Index | 40.41 | 12/02/2019 4:47 PM | | | | | PDT | | + + + + + Plan of Treatment +--------+---------+ + + + | Date | Type | Specialty | Care Team | Description | +--------+---------+ + + + | 12/21/ | Office | Primary Care | Alex Alvarenga | | | 2019 | Visit | | [place], [address] | | | | | | [place] | | | | | | [address] | | | | | | [phone] | | | | | | | | +--------+---------+ + + + + + + + + | Health Maintenance | Due Date | Last | Comments | | | | Done | | + + + + + | Medication | | | | | Management | 5 | | | + + + + + | Vaccine: Zoster (1 | | | | | of 2) | 5 | | | + + + + + | Med Mgmt: Cr | | 07/13/19 | | | | 0 | 19, | | | | | 01/03/20 | | | | | 18 | | + + + + + | Med Mgmt: K | | 07/13/19 | | | | 0 | 19, | | | | | 01/03/20 | | | | | 18 | | + + + + + | Breast Cancer | | 02/18/20 | | | Screening | 0 | 16 | | + + + + + | Vaccine: Influenza | | 02/01/20 | | | (#1) | 0 | 19, | | | | | 01/02/20 | | | | | 18, | | | | | 01/11/20 | | | | | 17, | | | | | Addition | | | | | al | | | | | history | | | | | exists | | + + + + + | Cervical Cancer | | 05/16/19 | | | Screening (Pap) | 2 | 17 | | + + + + + | Primary Care | | 12/02/19 | | | Outreach (Low Risk) | 2 | 20, | | | | | 06/17/19 | | | | | 20, | | | | | 03/04/20 | | | | | 19, | | | | | Addition | | | | | al | | | | | history | | | | | exists | | + + + + + | Colorectal Cancer | | 06/24/19 | | | Screening | 6 | 16, | | | (Colonoscopy) | | 06/24/19 | | | | | 16 | | + + + + + | Vaccine: | | 01/02/20 | | | Dtap/Tdap/Td (3 - | 8 | 18, | | | Td) | | 08/15/20 | | | | | 06 | | + + + + + | Hepatitis C | Completed | 01/03/20 | | | Screening | | 18 | | + + + + + Procedures + +--------+ + + + | Procedure Name | Priori | Date/Time | Associated Diagnosis | Comments | | | ty | | | | + +--------+ + + + | URINALYSIS WITH | Routin | 10/14/2019 | | Results for this | | MICROSCOPIC WITH | e | 11:40 AM | | procedure are in the | | CULTURE IF INDICATED | | PDT | | results section. | + +--------+ + + + | CULTURE, URINE | Routin | 10/14/2019 | | Results for this | | | e | 11:40 AM | | procedure are in the | | | | PDT | | results section. | + +--------+ + + + | CULTURE, URINE, | Routin | 10/14/2019 | | Results for this | | REFLEXIVE (NON ORD) | e | 11:40 AM | | procedure are in the | | | | PDT | | results section. | + +--------+ + + + from Last 3 Months Results Culture, Urine, Reflexive (10/14/2019 11:40 AM PDT) + + + + +------- -------+ | Component | Value | Ref Range | Performed | Pathol ogist | | | | | At | Signat ure | + + + + +------- -------+ | CULTURE | TO FOLLOWComment: Urine | | REFERENCE | | | [facility] | Culture to follow on a | | LAB | | | URINE | separate report | | [facility] - | | | |Urine Culture to follow on a separate report | | [facility] | | | | | | | | + + + + +------- -------+ + + | Specimen | + + | | + + + + + | Narrative | Performed At | + + + | Testing Performed at: [facility] CLIA: [id number] - [address] | REFERENCE LAB | | [place] [address] | [place] - | | | [place] | + + + + + + + + | Performing | Address | City/State/Zipcode | Phone Number | | Organization | | | | + + + + + | REFERENCE LAB | [facility] | [place] | [phone] | | [facility] | | [address] | | + + + + + Urinalysis with Microscopic with Culture if Indicated (10/14/2019 11:40 AM PDT) + + + + + + | Component | Value | Ref Range | Performed | Pathologist | | | | | At | Signature | + + + + + + | Collection | CLEAN CATCH | | REFERENCE | | | | | | LAB | | | | | | [facility] - | | | | | | [facility] | | + + + + + + | Color, UA | STRAW | | REFERENCE | | | | | | LAB | | | | | | [facility] - | | | | | | [place] | | + + + + + + | Clarity, | CLEAR | | REFERENCE | | | Urine | | | LAB | | | | | | [facility] - | | | | | | [place] | | + + + + + + | Specific | 1.006 | 1.005 - 1.030 | REFERENCE | | | [place] | | | LAB | | | | | | [facility] - | | | | | | [place] | | + + + + + + | pH, Urine | 6 | 5 - 9 | REFERENCE | | | | | | LAB | | | | | | [facility] - | | | | | | [place] | | + + + + + + | Protein, UA | NEGATIVE | negative | REFERENCE | | | | | | LAB | | | | | | [facility] - | | | | | | [place] | | + + + + + + | Glucose, UA | NORMAL | normal | REFERENCE | | | | | | LAB | | | | | | [facility] - | | | | | | [place] | | + + + + + + | Ketones, UA | NEGATIVE | negative | REFERENCE | | | | | | LAB | | | | | | [facility] - | | | | | | [facility] | | + + + + + + | Bilirubin, | NEGATIVE | negative | REFERENCE | | | UA | | | LAB | | | | | | [facility] - | | | | | | [facility] | | + + + + + + | Blood, UA | NEGATIVE | negative | REFERENCE | | | | | | LAB | | | | | | [facility] - | | | | | | [place] | | + + + + + + | Nitrite, UA | NEGATIVE | negative | REFERENCE | | | | | | LAB | | | | | | [facility] - | | | | | | [place] | | + + + + + + | Urobilinoge | NORMAL | normal | REFERENCE | | | n, Ur | | | LAB | | | | | | [facility] - | | | | | | [place] | | + + + + + + | Leukocyte | NEGATIVE | negative | REFERENCE | | | esterase, | | | LAB | | | UA | | | [facility] - | | | | | | [facility] | | + + + + + + | Other Casts | NEGATIVE | 0-1+ Hyaline | REFERENCE | | | | | | LAB | | | | | | [facility] - | | | | | | [facility] | | + + + + + + | WBC, UA | 0 | 0 - 4 | REFERENCE | | | | | | LAB | | | | | | [facility] - | | | | | | [facility] | | + + + + + + | RBC, UA | 0 | 0 - 4 | REFERENCE | | | | | | LAB | | | | | | [facility] - | | | | | | [facility] | | + + + + + + | Squamous | SQUAMOUS 1+ | 0-1+ Squamous | REFERENCE | | | epithelial, | | | LAB | | | UA | | | [facility] - | | | | | | [facility] | | + + + + + + | CRYSTAL UA | NEGATIVE | 0-1+ | REFERENCE | | | | | | LAB | | | | | | [facility] - | | | | | | [facility] | | + + + + + + | Bacteria, | 4+ | negative | REFERENCE | | | UA | | | LAB | | | | | | [facility] - | | | | | | [facility] | | + + + + + + + + | Specimen | + + | | + + + + + | Narrative | Performed At | + + + | Testing Performed at: [facility] CLIA: [id number] - [address] | REFERENCE LAB | | [place] [address] | [facility] - | | | [place] | + + + + + + + + | Performing | Address | City/State/Zipcode | Phone Number | | Organization | | | | + + + + + | REFERENCE LAB | [facility] | [place] | [phone] | | [facility] | | [address] | | + + + + + Culture, Urine (10/14/2019 11:40 AM PDT) + + + + + + | Component | Value | Ref Range | Performed | Pathologist | | | | | At | Signature | + + + + + + | CULTURE | SEE NOTE (A)Comment: | | REFERENCE | | | [facility] | URINE CULTURE | | LAB | | | URINE | 10/15/2019 12:44 PM | | [facility] - | | | | Over 100,000 CFU/mL | | [facility] | | | | Lactose Supervisor Farm Equipment Maintenance , | | | | | | Identification and | | | | | | susceptibility to | | | | | | follow. 10/16/2019 | | | | | | 12:17 PM Lactose | | | | | | Supervisor Farm Equipment Maintenance identified as | | | | | | Escherichia coli | | | | | | SUSCEPTIBILITY/JORGE 1 | | | | | | Escherichia coli | | | | | | SUSCEPTIBLE ug/mL | | | | | | INTERMEDIATE ug/mL | | | | | | RESISTANT ug/mL | | | | | | | | | | | | | | | | | | | | | | | | AMPICILLIN <=2 | | | | | | | | | | | | | | | | | | | | | | | | AMPICILLN/SULBAC<=2 | | | | | | | | | | | | | | | | | | | | | | | | PIPERACILLIN/ TA<=4 | | | | | | | | | | | | | | | | | | | | | | | | CEFAZOLIN <=4 | | | | | | | | | | | | | | | | | | | | | | | | CEFTAZIDIME <=1 | | | | | | | | | | | | | | | | | | | | | | | | CEFTRIAXONE <=0.25 | | | | | | | | | | | | | | | | | | | | | | | | CEFEPIME | | | | | | <=0.12 | | | | | | | | | | | | | | | | | | ERTAPENEM | | | | | | <=0.12 | | | | | | | | | | | | | | | | | | IMIPENEM | | | | | | <=0.25 | | | | | | | | | | | | | | | | | | GENTAMICIN | | | | | | <=1 | | | | | | | | | | | | | | | | | | TOBRAMYCIN | | | | | | <=1 | | | | | | | | | | | | | | | | | | CIPROFLOXACIN | | | | | | <=0.25 | | | | | | | | | | | | | | | | | | LEVOFLOXACIN | | | | | | <=0.12 | | | | | | | | | | | | | | | | | | NITROFURANTOIN <=16 | | | | | | | | | | | | | | | | | | | | | | | | TMP/ SMX <=20 | | | | | | | | | | | | | | | | | | | | | | | | Testing Performed at: | | | | | | [address] [place] [address]; | | | | | | [place], [place] | | | | | | [id number] Phone: | | | | | | | | | | + + + + + + + + | Specimen | + + | | + + + + + + + | Performing | Address | City/State/Zipcode | Phone Number | | Organization | | | | + + + + + | REFERENCE LAB | [address] [facility] | [place] | [phone] | | [facility] | | [address] | | + + + + + from Last 3 Months Insurance + +--------+ +--------+ + +------+ | Payer | Benefi | Subscriber | Effect | Phone | Address | Type | | | t Plan | ID | ruma | | | | | | / | | Dates | | | | | | Group | | | | | | + +--------+ +--------+ + +------+ | MODA | MODA | [id number] | 04/23/19 | [phone] | [address] | PPO | | | [employer] | | 15-Pre | 9 | [address] | | | | [place] | | sent | | [place], | | | | [place] | | | | [place] [address] | | + +--------+ +--------+ + +------+ | MODA | MODA | [id number] | | [phone] | [address] | PPO | | | OEBB | | 017-Pr | 9 | [phone] | | | | [place] | | esent | | [place], | | | | [place] | | | | [place] [address] | | + +--------+ +--------+ + +------+ | MODA | MODA | [id number] | | [phone] | [address] | PPO | | | [employer] | | 017-Pr | 9 | [phone] | | | | [place] | | esent | | [place], | | | | [place] | | | | [place] [address] | | + +--------+ +--------+ + +------+ | [facility] | PHP | [id number] | 04/23/19 | [phone] | | PPO | | PLAN | PEBB | | 18-Pre | 5 | | | | | STATEW | | sent | | | | | | ISA | | | | | | + +--------+ +--------+ + +------+ | [facility] | PHP | [id number] | 04/23/19 | [phone] | | PPO | | PLAN | PEBB | | 13-Pre | 5 | | | | | PROV | | sent | | | | | | CHOICE | | | | | | + +--------+ +--------+ + +------+ | [facility] | PHP | [id number] | 03/10/ | [phone] | | PPO | | PLAN | PEBB | | 2019-P | 5 | | | | | STATEW | | resent | | | | | | ISA | | | | | | + +--------+ +--------+ + +------+ + +--------+ +--------+ + + | Guarantor Name | Accoun | Relation to | Date | Phone | Billing Address | | | t Type | Patient | of | | | | | | | | | | + +--------+ +--------+ + + | Tatyana Guerrier | Person | Self | [birth year] | [address] | | | al/Fam | | 1966 | [phone] | [place] [address] | | | [place] | | | 6 (Home) | | + +--------+ +--------+ + + | Tatyana Guerrier | Person | Self | [birth year] | [address] | | | al/Fam | | 1966 | [phone] | [place] [address] | | | [place] | | | 6 (Home) | | + +--------+ +--------+ + + | Tatyana Guerrier | Person | Self | [birth year] | [address] | | | al/Fam | | 1962 | [phone] | [place] [address] | | | [place] | | | 6 (Home) | | + +--------+ +--------+ + + | Tatyana Guerrier | Kenn | Self | [birth year] | | [address] | | | Republican | | 1966 | [phone] | [place] [address] | | | [place] | | | 6 ([place]) | | | | ity | | | | | + +--------+ +--------+ + + Advance Directives + + + + + | Type | Date Recorded | Patient | Explanation | | | | Job Coaching | | + + + + + | Power of | | | | | Thread Weaver | | | | + + + + + | Advance | 07/15/2018 8:15 | | | | Directive | AM | | | + + + + +
--- OUTSIDE RECORDS SUMMARY | ~2019-12-12 | XMS | Encounter Summary ---
Demographics + + + | Address | [address] | | | [place] [address] | + + + | Home Phone | | + + + | Preferred Language | Unknown | + + + | Marital Status | | + + + | Hinduism Affiliation | 1038 | + + + | Race | White | + + + | Ethnic Group | Not or | + + + Author + + + | Author | [facility] | | | and [place] | + + + | Organization | [facility] | | [...] [place], | | | | | [place] [address] | | + + + + + Care Team Providers + +------+ + | Care Insurance Attorney Name | Role | Phone | + +------+ + PCP | Unavailable | + +------+ + Encounter Details +--------+ + + + + | Date | Type | Department | Care Team | Description | +--------+ + + + + | 06/25/ | [facility] | [facility] | | | | 2006 | Encounter | MED CTR GENERIC IP | | | | | | CONV DEPT [address] | | | | | | [place], | | | | | | [place] [address] | | | | | | [phone] | | | +--------+ + + + [...] | | 2020 | Visit | | DO Zac [address] | | | | | | [place] | | | | | | [address] | | | | | | [phone] | | | | | | | | +--------+---------+ + + + documented as of this encounter Visit Diagnoses Not on filedocumented in this encounter"
--- OUTSIDE RECORDS SUMMARY | ~2019-12-12 | XMS | Encounter Summary ---
Demographics + + + | Address | [address] | | | [place] [address] | + + + | Home Phone | | + + + | Preferred Language | Unknown | + + + | Marital Status | | + + + | Confucianist Affiliation | 1038 | + + + | Race | White | + + + | Ethnic Group | Not or | + + + Author + + + | Author | [facility] | | | and [place] | + + + | Organization | [facility] | | [...] [place], | | | | | [place] [address] | | + + + + + Care Team Providers + +------+ + | Care Storage Battery Charger Name | Role | Phone | + +------+ + | Alex Alvarenga DO | PCP | | + +------+ + Reason for Visit +--------+--------+ + | Reason | Onset | Comments | | | Date | | +--------+--------+ + | Other | 03/10/ | possible infection | | | 2019 | | +--------+--------+ + Encounter Details +--------+ + + + + | Date | Type | Department | Care Team | Description | +--------+ + + + + | 03/10/ | Telephone | [facility] | Alex Rainey, | Other (possible | | 2019 | | PLASTIC SURGERY AND | MD Loyda MULLER | infection) | | | | DERMATOLOGY [address] [place], | | | | | [address] | [place] [address] | | | | | [place] | [phone] | | | | | [address] | | | | | | [phone] | | | +--------+ + + + [...] this encounter Miscellaneous Notes Telephone Encounter - Monalisa Sanchez - 03/12/2019 11:11 AM PSTSpoke to patient and let he r know that she should continue care with Electronically signed by Monalisa yang 03/12/2019 11:12 AM PSTTelephone Encounter - Evelyne Hernandez, Candle Molder Machine - 4:29 PM PSTReturned patients call and left message to call back elephone Encounter - Evelyne Cesar, Candle Molder Machine - 03/10/2019 4:29 PM PST----- Message from Alex Rainey MD sent at 03/10/2019 2:47 PM PST ----- Come in tomorrow or sun ----- Message ----- From: Patsy Peguero Sent: 03/10/2019 2:25 PM PST To: Alex Rainey MD ----- Message ----- From: Katiuska Fuentes Sent: 03/10/2019 2:00 PM PST To: Evelyne Hernandez Candle Molder Machine SAYS HER FACE IS INFECTED. DO YOU WANT TO SEE HER FOR FOLLOW UP? docum ented in this encounter Plan of Treatment +--------+---------+ + + + | Date | Type | Specialty | Care Team | Description | +--------+---------+ + + + | 12/21/ | Office | Primary Care | Alex Alvarenga | | | 2020 | Visit | | E, DO [address] | | | | | | [place], [place] | | | | | | [address] | | | | | | [phone] | | | | | | | | +--------+---------+ + + + documented as of this encounter Visit Diagnoses Not on filedocumented in this encounter"
--- OUTSIDE RECORDS SUMMARY | ~2019-12-12 | XMS | Encounter Summary ---
Demographics + + + | Address | [address] | | | [place] [address] | + + + | Home Phone | | + + + | Preferred Language | Unknown | + + + | Marital Status | | + + + | Muslim Affiliation | 1038 | + + + | Race | White | + + + | Ethnic Group | Not or | + + + Author + + + | Author | [facility] | | | and [place] | + + + | Organization | [facility] | | | and [place] | + + + | Address | Unknown | + + + | Phone | Unavailable | + + + Support + + + + + | Name | Relationship | Address | Phone | + + + + + | Eric Guerrier | ECON | [address], | | | | | [place] [address] | | + + + + + Care Team Providers + +------+ + | Care Security Officer Supervisor Name | Role | Phone | + +------+ + | Alex Alvarenga DO | PCP | | + +------+ + Reason for Visit + + + | Reason | Comments | + + + | Pharyngitis | x3 days of sore throat and stiff neck | + + + | Urinary Tract | Pt reports strong odor, buring with urination, and odd color to | | Infection | urine. | + + + Encounter Details +--------+---------+ + + + | Date | Type | Department | Care Team | Description | +--------+---------+ + + + | 06/17/ | Office | [facility] | Alex Alvarenga | Frequent urination | | 2020 | Visit | [facility] | E, DO [address] | (Primary Dx); | | | | [facility] [address] | [place], [place] | Adjustment disorder | | | | [address] [place], | [address] | with mixed anxiety | | | | [place] [address] | [phone] | and depressed mood | | | | [phone] | | | +--------+---------+ + + + [...] + + + | Blood Pressure | 154/90 | 06/17/2019 2:28 PM | | | | | PST | | + + + + + | Pulse | 91 | 06/17/2019 2:28 PM | | | | | PST | | + + + + + | Temperature | 36.7 C (98.1 F) | 06/17/2019 2:28 PM | | | | | PST | | + + + + + | Respiratory Rate | 19 | 06/17/2019 2:28 PM | | | | | PST | | + + + + + | Oxygen Saturation | 97% | 06/17/2019 2:28 PM | | | | | PST | | + + + + + | Inhaled Oxygen | - | - | | | Concentration | | | | + + + + + | Weight | 117 kg (258 lb) | 06/17/2019 2:28 PM | | | | | PST | | + + + + + | Height | 170.2 cm (5' 7") | 06/17/2019 2:28 PM | | | | | PST | | + + + + + | Body Mass Index | 40.41 | 06/17/2019 2:28 PM | | | | | PST | | + + + + + documented in this encounter Progress Alex Ruelas DO - 06/17/2019 2:40 PM PST Patient ID: Tatyana Guerrier is a 53 y.o. year old female Chief Complaint: Chief Complaint Patient presents with Pharyngitis x3 days of sore throat and stiff neck Urinary Tract Infection Pt reports strong odor, buring with urination, and odd color to urine. Assessment 1. Frequent urination - POCT Urinalysis - Culture, Urine; Future 2. Adjustment disorder with mixed anxiety and depressed mood - buPROPion (WELLBUTRIN SR) 100 mg 12 hr tablet; Take 1 tablet by mouth 2 times daily. Dis pense: 60 tablet; Refill: 4 Plan: -Continue taking fluoxetine 60 mg QD. -Initiated Wellbutrin 100 mg BID. -FU PRN. -Encouraged to seek support and counseling for current life stressors. Subjective: HPI: Patient presents to the clinic for pharyngitis and UTI. She reports increasing urgency, burning with urination, a strong odor, and an odd color to her urine. Her POCT urinalysis showed a specific gravity of 1, but had no abnormal findings otherwise. She states she does drink a lot of diet Coke. The patient has had 3 days of a sore throat and a stiff neck. Last Sunday and s he felt as if "an elephant was sitting on her ribcage" underneath her breasts. She has a doo trevor cough after breathing deeply. She has had a lot of personal stress from her job, which is triggering her anxiety. She man ages her anxiety with fluoxetine 60 mg QD. She has never taken Wellbutrin. 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 She feels a lot of stress from her superviso r due to this. She states she has support at work, and reports her union is involved with [employer] situation. Current Outpatient Medications Medication Sig Dispense Refill Calcium Carbonate (CALCIUM 600 PO) Take 1 tablet by mouth Daily. estradiol (ESTRACE) 1 mg tablet Take 1 mg by mouth Daily. FLUoxetine (PROZAC) 20 mg capsule Take 3 capsules by mouth Daily. 270 capsule 3 losartan (COZAAR) 25 mg tablet Take 1 tablet by mouth Daily. 90 tablet 3 Multiple Vitamin (MULTIVITAMINS PO) Take 1 tablet by mouth Daily. triamcinolone (KENALOG) 0.1% cream Apply topically 2 times daily. Apply to affected ar ea(s) two times daily as needed: avoid face and groin areasIn Eucerin (already compounded w ith equal parts Eucerin Cream) 454 g 0 valACYclovir (VALTREX) 500 mg tablet Take 1 tablet by mouth 2 times daily. 180 tablet 0 zolpidem (AMBIEN) 5 mg tablet TAKE ONE TABLET BY MOUTH EVERY DAY AT BEDTIME 30 tablet 3 No current facility-administered medications for this visit. Patient Active Problem List Diagnosis Hypertension Aphthous ulcer Trigeminal neuralgia Boil, face Sleep apnea Post-traumatic osteoarthritis of left ankle Depression with anxiety Pyogenic granuloma Family History Problem Relation Age of Onset Hemochromatosis Mother Diabetes Other Type 1 Past Surgical History: Procedure Laterality Date APPENDECTOMY 1989 BILIARY TRACT SURGERY CHOLECYSTECTOMY COLONOSCOPY 06/24/2015 HYSTERECTOMY 1999 LEFT ANKLE SURGERY 2015 Social History Socioeconomic History Marital status: Spouse name: Not on file Number of children: 4 Years of education: Not on file Highest education level: Not on file Occupational History Not on file Social Needs Financial resource strain: Not on file Food insecurity: Worry: Not on file Inability: Not on file Transportation needs: Medical: Not on file Non-medical: Not on file Tobacco Use Smoking status: Never Smoker Smokeless tobacco: Never Used Substance and Sexual Activity Alcohol use: No Alcohol/week: 0.0 standard drinks Drug use: No Sexual activity: Yes Partners: Male control/protection: Surgical Lifestyle Physical activity: Days per week: Not on file Minutes per session: Not on file Stress: Not on file Relationships Social connections: Talks on phone: Not on file Gets together: Not on file Attends mosque service: Not on file Active member of club or organization: Not on file Attends meetings of clubs or organizations: Not on file Relationship status: Not on file Intimate partner violence: Fear of current or ex partner: Not on file Emotionally abused: Not on file Physically abused: Not on file Forced sexual activity: Not on file Other Topics Concern Not on file Social History Narrative Not on file No Known Allergies Review of Systems Genitourinary: Positive for dysuria (burning) and urgency. Psychiatric/Behavioral: Positive for dysphoric mood. The patient is nervous/anxious. Objective: Vitals: BP 154/90 | Pulse 91 | Temp 36.7 C (98.1 F) (Oral) | Resp 19 | Ht 1.702 m (5' 7") | Wt 117 kg (258 lb) | LMP (LMP Unknown) | SpO2 97% | No | BMI 40.41 kg/m Physical Exam Constitutional: She is oriented to person, place, and time. She appears well-developed and well-nourished. HENT: Head: Normocephalic and atraumatic. Right Ear: External ear normal. Left Ear: External ear normal. Nose: Nose normal. Mouth/Throat: Oropharynx is clear and moist. No oropharyngeal exudate. Bilateral cerumen impaction Eyes: Pupils are equal, round, and reactive to light. Conjunctivae and EOM are normal. Neck: Normal range of motion. Neck supple. No thyromegaly present. Cardiovascular: Normal rate, regular rhythm, normal heart sounds and intact distal pulses. Pulmonary/Chest: Effort normal and breath sounds normal. Abdominal: Soft. Bowel sounds are normal. Neurological: She is alert and oriented to person, place, and time. She has normal reflexes . Psychiatric: She has a normal mood and affect. Her behavior is normal. Judgment and thought content normal. This documentation prepared by Jodi Saucedo medical bill processor. All aspects of this chart review ed for accuracy and content by Alex Alvarenga DO at the date and time of service. Electronically signed by: Dr. Alex Alvarenga DO 06/17/2019 4:25 PM documented in this encounter Plan of Treatment +--------+---------+ + + + | Date | Type | Specialty | Care Team | Description | +--------+---------+ + + + | 12/21/ | Office | Primary Care | Alex Alvarenga | | 2019 | Visit | | E, DO [address] | | | | | | [place], [place] | | | | | | [address] | | | | | | [phone] | | | | | | | | +--------+---------+ + + + documented as of this encounter Procedures + +--------+ + + + | Procedure Name | Priori | Date/Time | Associated Diagnosis | Comments | | | ty | | | | + +--------+ + + + | CULTURE, URINE | Routin | 06/17/2019 | Frequent urination | Results for this | | | e | 6:00 PM | | procedure are in the | | | | PST | | results section. | + +--------+ + + + | POCT URINALYSIS, | Routin | 06/17/2019 | Frequent urination | Results for this | | AUTO WITH CONF | e | 2:52 PM | | procedure are in the | | | | PST | | results section. | + +--------+ + + + documented in this encounter Results Culture, Urine (06/17/2019 6:00 PM PST) + + + + + + | Component | Value | Ref Range | Performed | Pathologist | | | | | At | Signature | + + + + + + | Culture | >100,000 CFU/ml | | [place] | | | | Escherichia coli | | [facility] | | | | [facility] | | | | | | [facility]ORY | | + + + + + + + + | Specimen | + + | Urine - Urine | | specimen obtained by | | clean catch | | procedure (specimen) | + + + + + | Narrative | Performed At | + + + | Current [facility] clinical laboratory antibiogram data can be found on the | [facility] | | [facility] intranet at | HOSPITAL | | [email or web address] or on | LABORATORY | | the [facility] website at [email or web address] | | + + + + + +--------+ + | Organism | Antibiotic | Method | Susceptibility | + + +--------+ + | Escherichia coli | Ampicillin | | >16.0000: | | | | | Resistant | + + +--------+ + | Escherichia coli | Ampicillin + | | <=4.0000: | | | Sulbactam | | Sensitive | + + +--------+ + | Escherichia coli | Aztreonam | | <=1.0000: | | | | | Sensitive | + + +--------+ + | Escherichia coli | Cefazolin | | 2.0000: Sensitive | + + +--------+ + | Escherichia coli | Ceftazidime | | <=1.0000: | | | | | Sensitive | + + +--------+ + | Escherichia coli | Ceftriaxone | | <=0.5000: | | | | | Sensitive | + + +--------+ + | Escherichia coli | Ciprofloxacin | | <=0.5000: | | | | | Sensitive | + + +--------+ + | Escherichia coli | Gentamicin | | <=2.0000: | | | | | Sensitive | + + +--------+ + | Escherichia coli | Levofloxacin | | Sensitive | + + +--------+ + | Escherichia coli | Meropenem | | <=0.5000: | | | | | Sensitive | + + +--------+ + | Escherichia coli | Nitrofurantoin | | <=32.0000: | | | | | Sensitive | + + +--------+ + | Escherichia coli | Piperacillin + | | <=8.0000: | | | Tazobactam | | Sensitive | + + +--------+ + | Escherichia coli | Tetracycline | | <=4.0000: | | | | | Sensitive | + + +--------+ + | Escherichia coli | Tobramycin | | <=2.0000: | | | | | Sensitive | + + +--------+ + | Escherichia coli | Trimethoprim + | | >4.0000: Resistant | | | Sulfamethoxazole | | | + + +--------+ + + + + + + | Performing | Address | City/State/Zipcode | Phone Number | | Organization | | | | + + + + + | [facility] | [address] | [place] | [phone] | | [facility] | | [id number] | | + + + + + POCT Urinalysis (06/17/2019 2:52 PM PST) + + + + + + | Component | Value | Ref Range | Performed | Pathologist | | | | | At | Signature | + + + + + + | Color, UA, | Yellow | Yellow, Light | | | | POC | | Yellow | | | + + + + + + | Clarity, | Clear | | | | | UA, POC | | | | | + + + + + + | Glucose, | Negative | Negative | | | | UA, POC | | | | | + + + + + + | Bilirubin, | Negative | Negative | | | | UA, POC | | | | | + + + + + + | Ketones, | Negative | Negative, 100 | | | | UA, POC | | mg/dL | | | + + + + + + | Specific | 1.000 (A) | 1.001 - 1.030 | | | | [place], | | | | | | UA, POC | | | | | + + + + + + | Blood, UA, | Negative | Negative | | | | POC | | | | | + + + + + + | pH, UA, POC | 7.0 | 5.0, 6.0, 7.0, | | | | | | 8.0, 5.5, 6.5, | | | | | | 7.5 | | | + + + + + + | Protein, | Negative | Negative | | | | UA, POC | | | | | + + + + + + | Urobilinoge | Negative | 0.2, Negative, | | | | n, UA, POC | | Normal, < 0.2 | | | | | | mg/dL, 1 mg/dL, | | | | | | < 0.2 E.U./dl, | | | | | | 1.0 E.U./dL, | | | | | | 0.2 mg/dL | | | + + + + + + | Nitrite, | Negative | Negative | | | | UA, POC | | | | | + + + + + + | Leukocyte | Negative | Negative | | | | Esterase, | | | | | | UA, POC | | | | | + + + + + + | Remark | | | | | + + + + + + + + | Specimen | + + | Urine | + + documented in this encounter Visit Diagnoses + + | Diagnosis | + + | Frequent urination - Primary Urinary frequency | + + | Adjustment disorder with mixed anxiety and depressed mood | + + documented in this encounter
--- OUTSIDE RECORDS SUMMARY | ~2019-12-12 | XMS | Encounter Summary ---
Demographics + + + | Address | [address] | | | [place] [address] | + + + | Home Phone | | + + + | Preferred Language | Unknown | + + + | Marital Status | | + + + | Baptist Affiliation | 1038 | + + + | Race | White | + + + | Ethnic Group | Not or | + + + Author + + + | Author | [facility] | | | and [place] | + + + | Organization | [facility] | | | and [place] | + + + | Address | Unknown | + + + | Phone | Unavailable | + + + Support + + + + + | Name | Relationship | Address | Phone | + + + + + | Eric Guerrier | ECON | [address] [place], | | | | | [place] [address] | | + + + + + Care Team Providers + +------+ + | Care Gas Treater Name | Role | Phone | + [...] Description | +--------+--------+ + + + | 10/13/ | Refill | [facility] | Alex Alvarenga | Medication Refill | | 2019 | | [facility] | E, DO [address] | | | | | [facility] [address] | [facility] [place] | | | | | [address] [place], | [address] | | | | | [place] [address] | [phone] | | | | | [phone] | | | +--------+--------+ + + + [...] Encounter - Zoila Ruff CC CMA - 10/14/2019 12:32 PM PDTLAST OFFICE VISIT , labs up to date. ALYSSIA Larson CMA documented in this encounter [...] [place] | | | | | | [address] | | | | | | [phone] | | | | | | | | +--------+---------+ + + + documented as of this encounter Visit Diagnoses Not on filedocumented in this encounter"
--- OUTSIDE RECORDS SUMMARY | ~2019-12-12 | XMS | Encounter Summary ---
Demographics + + + | Address | [address] | | | [place] [address] | + + + | Home Phone | | + + + | Preferred Language | Unknown | + + + | Marital Status | | + + + | Congregation Affiliation | 1038 | + + + | Race | White | + + + | Ethnic Group | Not or | + + + Author + + + | Author | [facility] | | | and [place] | + + + | Organization | [facility] | | | and [place] | + + + | Address | Unknown | + + + | Phone | Unavailable | + + + Support + + + + + | Name | Relationship | Address | Phone | + + + + + | Eric Guerrier | ECON | [address], | | | | | [place] [address] | | + + + + + Care Team Providers + +------+ + | Care Integration Assistant Name | Role | Phone | + +------+ + | Alex Alvarenga DO | PCP | | + +------+ + Reason for Visit + +--------+ + | Reason | Onset | Comments | | | Date | | + +--------+ + | Medication Refill | 08/08/ | | | | 2018 | | + +--------+ + Encounter Details +--------+--------+ + + + | Date | Type | Department | Care Team | Description | +--------+--------+ + + + | 08/08/ | Refill | [facility] | Kiara Moe, | Medication Refill | | 2018 | | [facility] | CC TRAY ROOM WORKER | | | | | MEDICAL CL[facility] [address] | | | | | | [address] [facility], | | | | | | [place] [address] | | | | | | [phone] | | | +--------+--------+ + + + [...] this encounter Miscellaneous Notes Telephone Encounter - Kiara Moe CC TRAY ROOM WORKER - 08/08/2018 12:27 PM PDTLast OV 07/15/18 Labs UTD ALYSSIA Mccauley CMA documented in th is encounter Plan of Treatment +--------+---------+ + + + | Date | Type | Specialty | Care Team | Description | +--------+---------+ + + + | 12/21/ | Office | Primary Care | Alex Alvarenga | | | 2019 | Visit | | DO [address] | | | | | | [place] | | | | | | [address] | | | | | | [phone] | | | | | | | | +--------+---------+ + + + documented as of this encounter Visit Diagnoses Not on filedocumented in this encounter"
--- OUTSIDE RECORDS SUMMARY | ~2019-12-12 | XMS | Encounter Summary ---
Demographics + + + | Address | [address] | | | [place] [address] | + + + | Home Phone | | + + + | Preferred Language | Unknown | + + + | Marital Status | | + + + | Pentecostalism Affiliation | 1038 | + + + | Race | White | + + + | Ethnic Group | Not or | + + + Author + + + | Author | [facility] | | | and [place] | + + + | Organization | [facility] | | [...] [place], | | | | | [place] [address] | | + + + + + Care Team Providers + +------+ + | Care Research Engineer Name | Role | Phone | + +------+ + | Alex Alvarenga DO | PCP | | + +------+ + Reason for Visit + +--------+ + | Reason | Onset | Comments | | | Date | | + +--------+ + | Medication Refill | 02/15/ | | | Assistance | 2017 | | + +--------+ + Encounter Details +--------+ + + + + | Date | Type | Department | Care Team | Description | +--------+ + + + + | 02/15/ | Telephone | [facility] | Alex Alvarenga | Medication Refill | | 2017 | | [facility] | E, DO [address] | Assistance | | | | MEDICAL CLINIC [address] | [place], [place] | | | | | [place], | [address] | | | | | [place] [address] | [phone] | | | | | [phone] | | | +--------+ + + + [...] Encounter - Zoila Ruff CC CMA - 02/15/2018 10:08 AM PDTLeft message informin g patient PRESCRIPTION was sent. ALYSSIA Larson CMA elephone Zoila Dacosta CC [facility] - 02/15/2018 8:56 AM PDTOkay to do? ALYSSIA Larson CMA elephone Reji Hidalgo - 02/15/2018 7:34 AM PDTPt called and would like a prescription for Keren afed for a sinus infection. Pt uses [facility] in [place], please call when script has been sent/reji documented in t his encounter Plan of [...] [place] | | | | | | [address] | | | | | | [phone] | | | | | | | | +--------+---------+ + + + documented as of this encounter Visit Diagnoses Not on filedocumented in this encounter"
--- OUTSIDE RECORDS SUMMARY | ~2019-12-12 | XMS | Encounter Summary ---
Demographics + + + | Address | [address] | | | [place] [address] | + + + | Home Phone | | + + + | Preferred Language | Unknown | + + + | Marital Status | | + + + | Confucianism Affiliation | 1038 | + + + | Race | White | + + + | Ethnic Group | Not or | + + + Author + + + | Author | [facility] | | | and [place] | + + + | Organization | [facility] | | [...] [place], | | | | | [place] [address] | | + + + + + Care Team Providers + +------+ + | Care Box Cutter Name | Role | Phone | + +------+ + | Alex Alvarenga DO | PCP | | + +------+ + Reason for Visit + + + | Reason | Comments | + + + | Urinary Tract | Follow up frequent UTIs. Patient would like to go back on | | Infection | nitrofurantoin maintenance dose. | + + + | Other | skin pigment of left shoulder/back | + + + Encounter Details +--------+---------+ + + + | Date | Type | Department | Care Team | Description | +--------+---------+ + + + | 12/01/ | Office | [facility] | Alex Alvarenga | Frequent UTI | | 2020 | Visit | [facility] | E, DO [address] | (Primary Dx); | | | | MED[facility] [address] | [place], [place] | Shoulder lesion, | | | | [address] [place], | [address] | left | | | | [place] [address] | [phone] | | | | | [phone] | | | +--------+---------+ + + + [...] this encounter Progress Alex Ruelas DO - 12/02/2019 4:40 PM PDT Patient ID: Tatyana Guerrier is a 54 y.o. year old female Chief Complaint: Chief Complaint Patient presents with Urinary Tract Infection Follow up frequent UTIs. Patient would like to go back on nitrofurantoin maintenance dose . Other skin pigment of left shoulder/back Assessment 1. Frequent UTI - Urinalysis; Future - nitrofurantoin (MACRODANTIN) 50 mg capsule; Take 1 capsule by mouth Daily. Indications: S imple Infection of the Urinary Tract Dispense: 90 capsule; Refill: 3 2. Shoulder lesion, left Plan: -Advised patient to remove the lesion and send it to pathology. Patient will schedule a rem oval. -Urinalysis ordered today. -Initiated Macrobid. ANGEL reviewed. Advised patient to contact us immediately if she develo ps a rash. -If patient develops a UTI, recommended using Monistat 7. -Advised patient to increase water consumption. Her urine should be clear in color. Subjective: HPI: Patient presents to the clinic for frequent UTIs. Patient also reports a mole on her left shoulder that she would like evaluated. Patient rep orts that she has had 5 recent UTIs. She previously was taking a low of Macrobid daily, and this was successful at preventing UTIs. She states that her symptoms resolve for 3-4 weeks, and then they return. Current Outpatient Medications Medication Sig Dispense Refill buPROPion (WELLBUTRIN SR) 100 mg 12 hr tablet Take 1 tablet by mouth 2 times daily. 60 tablet 4 Calcium Carbonate (CALCIUM 600 PO) Take 1 [...] by mouth Daily. triamcinolone (KENALOG) 0.1% cream MIX 1 PART TO 1 WITH EUCERIN AND APPLY TO AFFECTED A ÓSCAR(S) TWO TIMES A DAY NEEDED - AVOID FACE AND GROIN AREA 454 g 0 valACYclovir (VALTREX) 500 mg [...] Financial resource strain: Not on file Food insecurity Worry: Not on file Inability: Not on file Transportation needs Medical: Not on file Non-medical: Not on file Tobacco Use Smoking status: Never Smoker Smokeless tobacco: Never Used Substance and Sexual Activity Alcohol use: No Alcohol/week: 0.0 standard drinks Drug use: No Sexual activity: Yes Partners: Male control/protection: Surgical Lifestyle Physical activity Days per week: Not on file Minutes per session: Not on file Stress: Not on file Relationships Social connections Talks on phone: Not on file Gets together: Not on file Attends church service: Not on file Active member of club or organization: Not on file Attends meetings of clubs or organizations: Not on file Relationship status: Not on file Intimate partner violence Fear of current or ex partner: Not on file Emotionally abused: Not on file Physically abused: Not on file Forced sexual activity: Not on file Other Topics Concern Not on file Social History Narrative Not on file No Known Allergies Review of Systems Objective: Vitals: BP 132/76 Comment: Right radial | Pulse 76 | Temp 37.1 C (98.7 F) (Oral) | Resp 17 | Ht 1.702 m (5' 7") | Wt 117 kg (258 lb) | LMP (LMP Unknown) | SpO2 97% | No | BMI 40.41 kg/m Physical Exam Skin: Papular lesion on left shoulder, 9 mm in length, 4 mm in width, not uniform in color, regul ar border This documentation prepared by Sunni Braden medical art therapist. All aspects of this chart revie wed for accuracy and content by Alex Alvarenga DO at the date and time of service. Electronically signed by: Dr. Alex Alvarenga DO 12/02/2019 5:31 PM PDT documented in this encounter Plan of Treatment [...] [place] | | | | | | [address] | | | | | | [phone] | | | | | | | | +--------+---------+ + + + + +------+--------+ + + | Name | Type | Priori | Associated Diagnoses | Order Schedule | | | | ty | | | + +------+--------+ + + | Urinalysis | Lab | Routin | Frequent UTI | 1 Occurrences | | | | e | | starting 12/02/2019 | | | | | | until 12/01/2020 | + +------+--------+ + + documented as of this encounter Visit Diagnoses + + | Diagnosis | + + | Frequent UTI - Primary Urinary tract infection, site not specified | + + | Shoulder lesion, left Unspecified disorder of skin and subcutaneous tissue | + + documented in this encounter
--- OUTSIDE RECORDS SUMMARY | ~2019-12-12 | XMS | Encounter Summary ---
Demographics + + + | Address | [address] | | | [place] [address] | + + + | Home Phone [...] | Author | [facility] | | | and [place] [...] [place], | | | | | [place] [address] | | + + + + + Care Team Providers + +------+ + | Care Pediatric Clinical Nurse Specialist Name | Role | Phone | + +------+ + | Alex Alvarenga DO | PCP | | + +------+ + Reason for Visit + +--------+ + | Reason | Onset | Comments | | | Date | | + +--------+ + | Medication Refill | 07/27/ | | | | 2020 | | + +--------+ + Encounter Details +--------+--------+ + + + | Date | Type | Department | Care Team | Description | +--------+--------+ + + + | 07/27/ | Refill | [facility] | Alex Alvarenga | Medication Refill | | 2019 | | [facility] | E, DO [address] | | | | | MEDICAL CLIN[facility] [address] | [place], [place] | | | | | [address] [place], | [address] | | | | | [place] [address] | [phone] | | | | | [phone] | | | +--------+--------+ + + + [...] Telephone Encounter - Anastasiia Woodall CMA - 07/28/2019 10:42 AM PDT Recent Visits 06/17/2019 Frequent urination [facility] Alex Alvarenga, DO Office Visit 08/09/2018 Concussion without loss of consciousness, initial encounter [facility] Alex Alvarenga, DO Office Visit 07/15/2018 Depression with anxiety [facility] Alex Alvarenga, DO Office Visit Pharmacy Confirmed:[facility]. Last refill:07/03/19 for 30 day supply per [facility]DP Anastasiia Woodall CMA documented in this e ncounter Plan of Treatment +--------+---------+ + + + | Date | Type | Specialty | Care Team | Description | +--------+---------+ + + + | 12/21/ | Office | Primary Care | Alex Alvarenga | | 2019 | Visit | | [facility] [address] | | | | | | [place] | | | | | | [address] | | | | | | [phone] | | | | | | | | +--------+---------+ + + + documented as of this encounter Visit Diagnoses Not on filedocumented in this encounter"
--- OUTSIDE RECORDS SUMMARY | ~2019-12-12 | XMS | Encounter Summary ---
Demographics + + + | Address | [address] | | | [place] [address] | + + + | Home Phone | | + + + | Preferred Language | Unknown | + + + | Marital Status | | + + + | Mormon Affiliation | 1038 | + + + | Race | White | + + + | Ethnic Group | Not or | + + + Author + + + | Author | [facility] | | | and [place] | + + + | Organization | [facility] | | | [...] [place], | | | | | [place] [address] | | + + + + + Care Team Providers + +------+ + | Care Heavy Equipment Rental Associate Name | Role | Phone | + +------+ + | Alex Alvarenga DO | PCP | | + +------+ + Reason for Visit + + + | Reason | Comments | + + + | Follow-up | Multiple concerns. Pt reports UTI, PERRY and hypertension. | + + + | Cyst | Chin cyst treated by Roxana Lee in 01/2018, cyst is currently | | | red and inflammed with drainage. | + + + | Nausea | Pt reports nausea, vomiting and nose bleed this morning, | + + + Encounter Details +--------+---------+ + + + | Date | Type | Department | Care Team | Description | +--------+---------+ + + + | 08/09/ | Office | [facility] | Alex Alvarenga | Concussion without | | 2019 | Visit | [facility] | E, DO [address] | loss of | | | | MEDICAL CL[facility] [address] | [place], [place] | consciousness, | | | | [address] [place], | [address] | initial encounter | | | | [place] [address] | [phone] | (Primary Dx); | | | | [phone] | | Urinary tract | | | | | | infection without | | | | | | hematuria, site | | | | | | unspecified; | | | | | | Nonintractable | | | | | | headache, | | | | | | unspecified | | | | | | chronicity pattern, | | | | | | unspecified headache | | | | | | type; Fatigue, | | | | | | unspecified type | +--------+---------+ + + + Social History [...] + + + | Blood Pressure | 134/74 | 08/09/2018 3:26 PM | | | | | PDT | | + + + + + | Pulse | 85 | 08/09/2018 3:26 PM | | | | | PDT | | + + + + + | Temperature | 36.8 C (98.2 F) | 08/09/2018 3:15 PM | | | | | PDT | | + + + + + | Respiratory Rate | 19 | 08/09/2018 3:15 PM | | | | | PDT | | + + + + + | Oxygen Saturation | 95% | 08/09/2018 3:15 PM | | | | | PDT | | + + + + + | Inhaled Oxygen | - | - | | | Concentration | | | | + + + + + | Weight | 115.2 kg (254 lb) | 08/09/2018 3:15 PM | | | | | PDT | | + + + + + | Height | 167.6 cm (5' 6") | 08/09/2018 3:15 PM | | | | | PDT | | + + + + + | Body Mass Index | 41 | 08/09/2018 3:15 PM | | | | | PDT | | + + + + + documented in this encounter Patient Instructions Patient Instructions Juan Ramon Wilson - 08/09/2018 3:30 PM PDT-Rest your brain, back off on reading, computer time, and TV. Let your head rest -Call if you have any concerns documented in this encounter Progress Notes Alex Alvarenga DO - 08/09/2018 3:30 PM PDT Patient ID: Tatyana Guerrier is a 52 y.o. year old female Chief Complaint Patient presents with Follow-up Multiple concerns. Pt reports UTI, PERRY and hypertension. Cyst Chin cyst treated by Roxana Lee in 01/2018, cyst is currently red and inflammed with dr tripathi. Nausea Pt reports nausea, vomiting and nose bleed this morning, Assessment: Concussion without loss of consciousness, initial encounter (Primary) Urinary tract infection without hematuria, site unspecified Nonintractable headache, unspecified chronicity pattern, unspecified headache type Fatigue, unspecified type Plan: -Rest your brain, back off on reading, computer time, and TV. Let your head rest -Call if you have any concerns Subjective: ALYSSA Joe presents to the clinic today for a follow up on multiple concerns, UTI, headache, and hypertension. Her chin cyst is still not healing, when she applies the medication the wound will "ooze". She was in the ER with UTI, during this visit she had a headache, her blood pressure was ve ry elevated in the ED. She fell 2 weeks and put her head through a crate, she never LOC, she got up a few minuets later. Since then she has had a headache off and on. This morning she had a nose bleed and after the bleed she had a relief of frontal nasal pressure. Today she f eels fatigued and still has the headache off and on. She has not had caffeine since Sunday. Current Outpatient Medications Medication Sig Dispense Refill Calcium Carbonate (CALCIUM 600 PO) Take 1 tablet by mouth Daily. estradiol (ESTRACE) 1 mg tablet Take 1 mg by mouth Daily. FLUoxetine (PROZAC) 20 mg capsule Take 3 capsules by mouth Daily. 270 capsule 3 FLUoxetine (PROZAC) 40 MG capsule Take 1 capsule by mouth Daily. 90 capsule 3 losartan (COZAAR) 25 mg tablet Take 1 tablet by mouth Daily. 90 tablet 3 Multiple Vitamin (MULTIVITAMINS PO) Take 1 tablet by mouth Daily. sulfamethoxazole-trimethoprim (BACTRIM DS) 800-160 mg per tablet Take 1 tablet by mouth 2 times daily for 10 days. 20 tablet 0 valACYclovir (VALTREX) 500 mg tablet Take 1 tablet by mouth 2 times daily. 180 tablet 0 zolpidem (AMBIEN) 5 mg tablet Take 1 tablet by mouth nightly. 30 tablet 3 No current facility-administered medications for this visit. Review of Systems Constitutional: Positive for fatigue. HENT: Positive for nosebleeds. Gastrointestinal: Positive for nausea. Neurological: Positive for headaches. Objective: Vitals: BP 134/74 | Pulse 85 | Temp 36.8 C (98.2 F) (Oral) | Resp 19 | Ht 1.676 m (5' 6") | Wt 115.2 kg (254 lb) | LMP (LMP Unknown) | SpO2 95% | ? No | BMI 41.00 k g/m Physical Exam Constitutional: She is oriented to person, place, and time. She appears well-developed and well-nourished. HENT: Head: Atraumatic. Right Ear: Hearing, tympanic membrane, external ear and ear canal normal. Left Ear: Hearing, tympanic membrane, external ear and ear canal normal. Nose: Nose normal. Right sinus exhibits no maxillary sinus tenderness and no frontal sinus tenderness. Left sinus exhibits no maxillary sinus tenderness and no frontal sinus tendernes s. Mouth/Throat: Oropharynx is clear and moist. Partial cerumen impaction bilaterally Eyes: EOM are normal. Cardiovascular: Normal rate, regular rhythm and normal heart sounds. Pulmonary/Chest: Effort normal and breath sounds normal. Neurological: She is alert and oriented to person, place, and time. Psychiatric: She has a normal mood and affect. Entered by Juan Ramon Wilson [facility], acting as scribe for Cameron Alvarenga D.O. [...] [place] | | | | | | [address] | | | | | | [phone] | | | | | | | | +--------+---------+ + + + documented as of this encounter Visit Diagnoses + + | Diagnosis | + + | Concussion without loss of consciousness, initial encounter - Primary | + + | Urinary tract infection without hematuria, site unspecified | + + | Nonintractable headache, unspecified chronicity pattern, unspecified headache type | + + | Fatigue, unspecified type | + + documented in this encounter
--- OUTSIDE RECORDS SUMMARY | ~2019-12-12 | XMS | Encounter Summary ---
Demographics + + + | Address | [address] | | | [place] [address] | + + + | Home Phone | | + + + | Preferred Language | Unknown | + + + | Marital Status | | + + + | Taoism Affiliation | 1038 | + + + | Race | White | + + + | Ethnic Group | Not or | + + + Author + + + | Author | [facility] | | | and [place] | + + + | Organization | [facility] | | | and [place] | + + + | Address | Unknown | + + + | Phone | Unavailable | + + + Support + + + + + | Name | Relationship | Address | Phone | + + + + + | Eric Guerrier | ECON | [address] [place], | | | | | [place] [address] | | + + + + + Care Team Providers + +------+ + | Care Master Ship Name | Role | Phone | + +------+ + | Alex Alvarenga DO | PCP | | + +------+ + Reason for Visit + +--------+ + | Reason | Onset | Comments | | | Date | | + +--------+ + | Medication Refill | 12/04/ | | | | 2017 | | + +--------+ + Encounter Details +--------+--------+ + + + | Date | Type | Department | Care Team | Description | +--------+--------+ + + + | 12/04/ | Refill | [facility] | Zoila Ruff, CC | Medication Refill | | 2017 | | [facility] | | | | | MEDICAL CL[facility] [address] | | | | | | [facility], | | | | | | [place] [address] | | | | | | [phone] | | | +--------+--------+ + + + [...] Encounter - Zoila Ruff CC CMA - 12/04/2017 4:39 PM PDTRe-est 01/01/2018. ALYSSIA Villalobos CMA documented in this encounter Plan of [...] [place] | | | | | | [address] | | | | | | [phone] | | | | | | | | +--------+---------+ + + + documented as of this encounter Visit Diagnoses Not on filedocumented in this encounter"
--- OUTSIDE RECORDS SUMMARY | ~2019-12-12 | XMS | Encounter Summary ---
Demographics + + + | Address | [address] | | | [place] [address] | + + + | Home Phone | | + + + | Preferred Language | Unknown | + + + | Marital Status | | + + + | Pentecostalism Affiliation | 1038 | + + + | Race | White | + + + | Ethnic Group | Not or | + + + Author + + + | Author | [facility] | | | and [place] | + + + | Organization | [facility] | [...] [place], | | | | | [place] [address] | | + + + + + Care Team Providers + +------+ + | Care Belt Conveyor Drier Name | Role | Phone | + +------+ + | Alex Alvarenga DO | PCP | | + +------+ + Reason for Visit + +--------+ + | Reason | Onset | Comments | | | Date | | + +--------+ + | Medication Refill | 05/15/ | | | | 2019 | | + +--------+ + Encounter Details +--------+--------+ + + + | Date | Type | Department | Care Team | Description | +--------+--------+ + + + | 05/15/ | Refill | [facility] | Kiara Moe, | Medication Refill | | 2019 | | [facility] | [facility] | | | | | [facility] [address] | | | | | | [address] [facility], | | | | | | [place] [address] | | | | | | [phone] | | | +--------+--------+ + + + [...] Notes Telephone Encounter - Kiara Moe CC CMA - 05/15/2019 12:06 PM PST Labs [facility] Patient was last seen on Recent Visits 08/09/2018 Concussion without loss of consciousness, initial encounter [facility] Alex Alvarenga, DO Office Visit 07/15/2018 Depression with anxiety [facility] Alex Alvarenga, DO Office Visit 01/01/2018 Hypertension, unspecified type [facility] Alex Alvarenga, DO Office Visit ALYSSIA Mccauley CMA documented in th is [...] [place] | | | | | | [address] | | | | | | [phone] | | | | | | | | +--------+---------+ + + + documented as of this encounter Visit Diagnoses Not on filedocumented in this encounter"
--- OUTSIDE RECORDS SUMMARY | ~2019-12-12 | XMS | Encounter Summary ---
Demographics + + + | Address | [address] | | | [place] [address] | + + + | Home Phone | | + + + | Preferred Language | Unknown | + + + | Marital Status | | + + + | Mosque Affiliation | 1038 | + + + | Race | White | + + + | Ethnic Group | Not or | + + + Author + + + | Author | [facility] | | | and [place] | + + + | Organization | [facility] | | | [...] [place], | | | | | [place] [address] | | + + + + + Care Team Providers + +------+ + | Care Process Stripper Name | Role | Phone | + +------+ + | Alex Alvarenga DO | PCP | | + +------+ + Encounter Details +--------+ + + + + | Date | Type | Department | Care Team | Description | +--------+ + + + + | 12/27/ | Abstract | [facility] | Alex Alvarenga | | | 2018 | | [facility] | E, DO [address] | | | | | MEDICAL CLIN[address] | [place], [place] | | | | | [address] [place], | [address] | | | | | [place] [address] | [phone] | | | | | [phone] | | | +--------+ + + + [...] [place] | | | | | | [address] | | | | | | [phone] | | | | | | | | +--------+---------+ + + + documented as of this encounter Procedures + +--------+ + + + | Procedure Name | Priori | Date/Time | Associated Diagnosis | Comments | | | ty | | | | + +--------+ + + + | EXTERNAL LAB: PAP | Routin | 05/16/2016 | | Results for this | | SMEAR | e | | | procedure are in the | | | | | | results section. | + +--------+ + + + | [facility] EXTERNAL IMAGE | Routin | 02/18/2016 | | Results for this | | | e | | | procedure are in the | | | | | | results section. | + +--------+ + + + | EXTERNAL: | Routin | 06/24/2015 | | Results for this | | COLONOSCOPY | e | | | procedure are in the | | | | | | results section. | + +--------+ + + + documented in this encounter Results External Lab: PAP Smear (05/16/2016) + + + + + + | Component | Value | Ref Range | Performed | Pathologist | | | | | At | Signature | + + + + + + | Pap Smear, | No evidence of | | | | | External | intraepithelial lesion | | | | | | or malignancyComment: | | | | | | Report not found. | | | | + + + + + + [facility] External Image (02/18/2016) + + + + + + | Component | Value | Ref Range | Performed | Pathologist | | | | | At | Signature | + + + + + + | EXT | 1-NegativeComment: | | | | | MAMMOGRAPHY | Report not found | | | | + + + + + + EXTERNAL: COLONOSCOPY (06/24/2015) + + + + + + | Component | Value | Ref Range | Performed | Pathologist | | | | | At | Signature | + + + + + + | Colonoscopy | Report not found; Repeat | | | | | | years not foundComment: | | | | | Impression, | Per [facility] | | | | | External | Medicine Medical Record | | | | + + + + + + documented in this encounter Visit Diagnoses Not on filedocumented in this encounter"
--- OUTSIDE RECORDS SUMMARY | ~2019-12-12 | XMS | Encounter Summary ---
Demographics + + + | Address | [address] | | | [place] [address] | + + + | Home Phone | | + + + | Preferred Language | Unknown | + + + | Marital Status | | + + + | Restorationist Affiliation | 1038 | + + + | Race | White | + + + | Ethnic Group | Not or | + + + Author + + + | Author | [facility] | | | and [place] | + + + | Organization | [facility] | | | [...] [place], | | | | | [place] [address] | | + + + + + Care Team Providers + +------+ + | Care Net Developer Consultant Name | Role | Phone | + +------+ + | Alex Alvarenga DO | PCP | | + +------+ + Reason for Visit + +--------+ + | Reason | Onset | Comments | | | Date | | + +--------+ + | Lab Results | 06/18/ | | | | 2020 | | + +--------+ + Encounter Details +--------+ + + + + | Date | Type | Department | Care Team | Description | +--------+ + + + + | 06/18/ | Telephone | [facility] | Alex Alvarenga | Lab Results | | 2019 | | [facility] | E, DO [address] | | | | | MEDICAL CLIN[facility] [address] | [place], [place] | | | | | [address] [place], | [address] | | | | | [place] [address] | [phone] | | | | | [phone] | | | +--------+ + + + [...] Encounter - Zoila Ruff CC CMA - 06/18/2019 5:08 PM PSTPatient informed of tony sinha and treatment. Zoila M. Elzbieta, CC TROLLEY CAR MECHANIC elephone Encounte Zoila Nieves CC [employer]LEY [employer] MECHANIC - 06/18/2019 5:07 PM PST----- Message from Alex Alvarenga DO sent at 06/18/2019 4:00 PM PST ----- Keflex 500 mg po qid for 10 daysElectronically signed by ALYSSIA Addison TROLLEY CAR MECHANIC at 0 5:07 PM PSTdocumented in this encounter Plan of Treatment +--------+---------+ + + + | Date | Type | Specialty | Care Team | Description | +--------+---------+ + + + | 12/21/ | Office | Primary Care | Alex Alvarenga | | 2019 | Visit | | DO [address] | | | | | | [place] | | | | | | [address] | | | | | | [phone] | | | | | | | | +--------+---------+ + + + documented as of this encounter Visit Diagnoses Not on filedocumented in this encounter"
--- OUTSIDE RECORDS SUMMARY | ~2019-12-12 | XMS | Encounter Summary ---
Demographics + + + | Address | [address] | | | [place] [address] | + + + | Home Phone [...] | Author | [facility] | | | and [place] | + + + | Organization | [facility] | | | [...] [place], | | | | | [place] [address] | | + + + + + Care Team Providers + +------+ + | Care Ed Transporter Name | Role | Phone | + +------+ + | Alex Alvarenga DO | PCP | | + +------+ + Reason for Visit + +--------+ + | Reason | Onset | Comments | | | Date | | + +--------+ + | Medication Refill | 01/03/ | Rx for Uti - See note for more details | | | 2018 | | + +--------+ + Encounter Details +--------+ + + + + | Date | Type | Department | Care Team | Description | +--------+ + + + + | 01/03/ | Telephone | [facility] | Alex Alvarenga | Medication Refill | | 2019 | | [facility] | E, DO [address] | (Rx for Uti - See | | | | [facility] [address] | [place], [place] | note for more | | | [address] [place], | [address] | details) | | | | [place] [address] | [phone] | | | | | [phone] | | | +--------+ + + + [...] Telephone Encounter - Anastasiia Woodall CMA - 01/03/2019 3:54 PM PDTCalled and relied Sun [employer] Nexmo to patient. She stated she would wait and call Dr Alvarenga on Sunday. Anastasiia Woodall CMA elephone Encounter - Brian Cortez DNP - 01/03/2019 3:42 PM PDTIf there is indeed treatment failure the emil ent is in need of culture and sensitivity of her urine to see if her urine is still sensitiv e to the given antibiotics. She really should be evaluated with a urinalysis with culture a nd sensitivity to determine which antibiotic treatment is needed. She could seek care local ly at an [facility] in [place] or you could try [facility].Electronical ly signed by Brian Cortez DNP at 01/03/2019 3:48 PM PDTTelephone Encounter - Joan Dalal - 01/03/2019 12:20 PM PDTPatient was treated for a Uti on 12-06-18 however she didn't t nickolas the antibiotics properly as she missed doses off and on and now she's starting to get th e Uti symptoms back and knows it will be bad by the weekend so hoping to get a another Rx ca lled into [facility] in [place]. Patient lives in [place] and is [place] time so the lab in [place] is closed today so no way to get a ua. Please call back to let her know if you can call Rx in today or if questions. Claudio Thomason - [place] Dalal documented [facility]. [facility] Plan of Treatment +--------+---------+ + + + | Date | Type | Specialty | Care Team | Description | +--------+---------+ + + + | 12/21/ | Office | Primary Care | Alex Alvarenga | | | 2020 | Visit | | DO Zac [address] | | | | | | [place] | | | | | | [address] | | | | | | [phone] | | | | | | | | +--------+---------+ + + + documented as of this encounter Visit Diagnoses Not on filedocumented in this encounter"
--- OUTSIDE RECORDS SUMMARY | ~2019-12-12 | XMS | Encounter Summary ---
Demographics + + + | Address | [address] | | | [place] [address] | + + + | Home Phone [...] | [facility] | | | and [...] [place], | | | | | [place] [address] | | + + + + + Care Team Providers + +------+ + | Care Goggles Assembler Name | Role | Phone | + +------+ + | Alex Alvarenga DO | PCP | | + +------+ + Reason for Visit + +--------+ + | Reason | Onset | Comments | | | Date | | + +--------+ + | Medication Refill | 01/27/ | | | | 2019 | | + +--------+ + Encounter Details +--------+--------+ + + + | Date | Type | Department | Care Team | Description | +--------+--------+ + + + | 01/27/ | Refill | [facility] | Alex Alvarenga | Medication Refill | | 2018 | | [facility] | E, DO [address] | | | | | MED[facility] [address] | [place], [place] | | | | | [address] [place], | [address] | | | | | [place] [address] | [phone] | | | | | [phone] | | | +--------+--------+ + + + [...] this encounter Miscellaneous Notes Telephone Encounter - Sierra Ramos RN - 01/27/2019 3:20 PM PDTFormatting of this no te might be different from the original. Received refill request from [facility]. Patient was last seen on Recent Visits 08/09/2018 Concussion without loss of consciousness, initial encounter [facility] Alex Alvarenga, DO Office Visit 07/15/2018 Depression with anxiety [facility] Alex Alvarenga, DO Office Visit 01/01/2018 Hypertension, unspecified type [facility] Alex Alvarenga, DO Office Visit . Requested Prescriptions Pending Prescriptions Disp Refills zolpidem (AMBIEN) 5 mg tablet 30 tablet 3 Sig: TAKE ONE TABLET BY MOUTH EVERY DAY AT BEDTIME Outpatient Morphine Equivalent Daily Dose (MEDD) None No results found for: AMPH, METHAMPHQUAL, CANNIBSCR, THC, MDMA, METHADSCR, METHADONE, LABOP IA, OPIATESCR, OPIATES, OPIATESINTER, MORPHINE, HYDROC, LABBENZ, TRICYCLICUR, BARBITURATE, P CP, AMPHEQUAL, OXYCODONEUR, OXYCODONE, OXYCOD, OXYMOR, PROPOX Patient's last refill was done 12/30/18. Other associated documentation for review None Sierra Ramos, RHYS documented in this encounter Plan of Treatment [...] [place] | | | | | | [address] | | | | | | [phone] | | | | | | | | +--------+---------+ + + + documented as of this encounter Visit Diagnoses Not on filedocumented in this encounter"
--- OUTSIDE RECORDS SUMMARY | ~2019-12-12 | XMS | Encounter Summary ---
Demographics + + + | Address | [address] | | | [place] [address] | + + + | Home Phone | | + + + | Preferred Language | Unknown | + + + | Marital Status | | + + + | Samaritan Affiliation | 1038 | + + + | Race | White | + + + | Ethnic Group | Not or | + + + Author + + + | Author | [facility] | | | and [place] | + + + | Organization | [facility] | | | [...] [place], | | | | | [place] [address] | | + + + + + Care Team Providers + +------+ + | Care Moderate Needs Teacher Name | Role | Phone | + [...] Description | +--------+--------+ + + + | 09/06/ | Refill | [facility] | Shelly Chery NP | Medication Refill | | 2019 | | [facility] | [address] | | | | | [facility] [address] | [facility], [place] | | | | | [address] [facility], | [address] | | | | | [place] [address] | [phone] | | | | | [phone] | | | +--------+--------+ + + + [...] Encounter - Kiara Moe CC CMA - 09/09/2018 10:59 AM PDTFaxed elephone Kiara Diop CC CMA - 09/09/2018 8:05 AM PDTFormatting of this note might be dif ferent from the original. Last filled 05/21/18 Patient was last seen on Recent Visits 08/09/2018 Concussion without loss of consciousness, initial encounter [facility] Alex Alvarenga, DO Office Visit 07/15/2018 Depression with anxiety [facility] Zac Alvarenga, DO Office Visit 01/01/2018 Hypertension, unspecified type [facility] Alex Alvarenga, DO Office Visit ALYSSIA Mccauley CMA documented in th is encounter Plan of Treatment +--------+---------+ + + + | Date | Type | Specialty | Care Team | Description | +--------+---------+ + + + | 12/21/ | Office | Primary Care | Alex Alvarenga | | | 2019 | Visit | | E, [address] | | | | | | [place] | | | | | | [address] | | | | | | [phone] | | | | | | | | +--------+---------+ + + + documented as of this encounter Visit Diagnoses Not on filedocumented in this encounter"
--- OUTSIDE RECORDS SUMMARY | ~2019-12-12 | XMS | Encounter Summary ---
Demographics + + + | Address | [address] | | | [place] [address] | + + + | Home Phone | | + + + | Preferred Language | Unknown | + + + | Marital Status | | + + + | Presybeterian Affiliation | 1038 | + + + | Race | White | + + + | Ethnic Group | Not or | + + + Author + + + | Author | and [facility] | | | and [place] | + + + | Organization | and [facility] | | | and [place] | + + + | Address | Unknown | + + + | Phone | Unavailable | + + + Support + + + + + | Name | Relationship | Address | Phone | + + + + + | Eric Guerrier | ECON | [address] [place], | | | | | [place] [address] | | + + + + + Care Team Providers + +------+ + | Care Window Dresser Name | Role | Phone | + +------+ + | Alex Alvarenga DO | PCP | | + +------+ + Reason for Visit + +--------+ + | Reason | Onset | Comments | | | Date | | + +--------+ + | Lab Order | 07/10/ | | | | 2018 | | + +--------+ + Encounter Details +--------+ + + + + | Date | Type | Department | Care Team | Description | +--------+ + + + + | 07/10/ | Telephone | [facility] | Alex Alvarenga | Lab Order | | 2019 | | [facility] | E, DO [address] | | | | | MEDICAL CLIN[facility] [address] | [facility], [place] | | | | | [address] [place], | [address] | | | | | [place] [address] | [phone] | | | | | [phone] | | | +--------+ + + + [...] Encounter - Zoila Ruff CC CMA - 07/11/2018 3:11 PM PDTPlease call to jaja briceno as listed. ALYSSIA Larson CMA elephone Alex Diaz DO - 07/11/2018 1:14 PM PDTBring her in next week, labs first. Elec tronically signed by Alex Alvarenga DO at 07/11/2018 1:14 PM PDTTelephone Encounter - Zoila Leonard CC CMA - 07/11/2018 12:26 PM PDTLabs faxed to [facility], patient in formed. Please call patient to schedule APPOINTMENT next week or the beginning of the foll owing, same day okay. Patient needs to discuss Prozac and labs. Dr. Alvarenga, Patient does not have an VICTOR HUGO machine. She would also like your thought on increasing Proza c? Please advise. ALYSSIA Larson CMA elephone Juan Ramon Kang - 07/11/2018 11:38 AM PDTI have pended lab orders and set to print. Can y ou please call the patient and verify that she is using VICTOR HUGO, and I am unsure what urine symp toms? Thank You Juan Ramon elephone Encounter - Alex Alvarenga DO - 07/11/2018 11:28 AM PDTPlease verify that she is using VICTOR HUGO. Order cbc cmp tsh UA Re: fatigue, ?urine symptoms. 1 1:29 AM PDTTelephone Encounter - Zoila Ruff CC CMA - 07/10/2018 2:39 PM PDTPatient c/o 10 lb weight gain and feeling exhausted, she would like labs done "something is off." Janet ent would also like an APPOINTMENT next week since it is Spring Break for her. Please advis e, she knows you are out of office today. ALYSSIA Larson CMA elephone Peña Carrillo - 07/10/2018 1:06 PM PDTPt would like her usual labs ordered to be do ne at [facility] in [place]. Pt would like to be seen next week to fup. I informed pt that we did not have any openings at this time, placed on wait list (no appt scheduled). Pt would like a call from July when labs have been ordered and to try and get her on the Juice In The Citydule next week. Please call and advise. Thanks, Peña Ngo P DTdocumented in this encounter Plan of Treatment +--------+---------+ + + + | Date | Type | Specialty | Care Team | Description | +--------+---------+ + + + | 12/21/ | Office | Primary Care | Alex Alvarenga | | | 2019 | Visit | | DO Zac [address] | | | | | | [place] | | | | | | [address] | | | | | | [phone] | | | | | | | | +--------+---------+ + + + + +------+--------+ + + | Name | Type | Priori | Associated Diagnoses | Order Schedule | | | | ty | | | + +------+--------+ + + | Comprehensive | Lab | Routin | Fatigue, | Expected: | | Metabolic Panel | | e | unspecified type | 07/11/2018, Expires: | | | | | | 07/12/2019 | + +------+--------+ + + | CBC with | Lab | Routin | Fatigue, | Expected: | | Differential | | e | unspecified type | 07/11/2018, Expires: | | | | | | 07/12/2019 | + +------+--------+ + + | TSH | Lab | Routin | Fatigue, | Expected: | | | | e | unspecified type | 07/11/2018, Expires: | | | | | | 07/12/2019 | + +------+--------+ + + | Urinalysis with | Lab | Routin | Fatigue, | Expected: | | Microscopic with | | e | unspecified type | 07/11/2018, Expires: | | Culture if Indicated | | | | 07/12/2019 | + +------+--------+ + + documented as of this encounter Procedures + +--------+ + + + | Procedure Name | Priori | Date/Time | Associated Diagnosis | Comments | | | ty | | | | + +--------+ + + + | THYROID STIMULATING | Routin | 07/12/2018 | | Results for this | | HORMONE 3RD GEN | e | 4:03 PM | | procedure are in the | | | | PDT | | results section. | + +--------+ + + + | URINALYSIS WITH | Routin | 07/12/2018 | | Results for this | | MICROSCOPIC WITH | e | 4:03 PM | | procedure are in the | | CULTURE IF INDICATED | | PDT | | results section. | + +--------+ + + + | CBC WITH | Routin | 07/12/2018 | | Results for this | | DIFFERENTIAL | e | 4:03 PM | | procedure are in the | | | | PDT | | results section. | + +--------+ + + + | COMPREHENSIVE | Routin | 07/12/2018 | | Results for this | | METABOLIC PANEL | e | 4:03 PM | | procedure are in the | | | | PDT | | results section. | + +--------+ + + + documented in this encounter Results Urinalysis with Microscopic with Culture if Indicated (07/12/2018 4:03 PM PDT) + + + + + + [...] + + + + | Clarity, | SLIGHTLYCLOUDY | | REFERENCE | | | Urine | | | LAB | | | | | | [facility] | | + + + + + + | Specific | 1.018 | 1.005 - 1.030 | REFERENCE | | | [place] | | | LAB | | | [...] + + | Testing Performed at: [facility] CLIA: [id number] - [address] | REFERENCE LAB | | [place] [address] | [facility] | + + + + + + + + | Performing | Address | City/State/Zipcode | Phone Number | | Organization | | | | + + + + + | REFERENCE LAB | [address] | [place] | [phone] | | [place] | | [address] | | + + + + + | REFERENCE LAB | [address] | [place] | [phone] | | [facility] | | [address] | | + + + + + Thyroid Stimulating Hormone 3rd Gen (07/12/2018 4:03 PM PDT) + + + + + + [...] + + + | Testing Performed at: [facility] CLIA: [id number] - [address] | REFERENCE LAB | | [place] [address] | [facility] | + + + + + + + + | Performing | Address | City/State/Zipcode | Phone Number | | Organization | | | | + + + + + | REFERENCE LAB | [facility] | [place] | [phone] | | [facility] | | [address] | | + + + + + | REFERENCE LAB | [facility] | [place] | [phone] | | [facility] | | [address] | | + + + + + Comprehensive Metabolic Panel (07/12/2018 4:03 PM PDT) + + + + + + [...] + + + + + + | Glucose | 86 | 70 - 100 | REFERENCE | | | | | [...] | REFERENCE | | | | ESTIMATED GFR Reference | | LAB | | | | Range:GFR = Less than | | [facility] | | | | 60: Chronic Kidney | | | | | | Disease, if found over a | | | | | | 3 month period.GFR = | | | | | | Less than 15: Kidney | | | | | | Failure.For | | | | | | Americans, multiply the | | | | | | calculated GFR by | | | | | | 1.21.GFR calculation is | | | | | | not valid for patients | | | | | | under age 18 years.For | | | | | | patients over age 70 | | | | | | please interpret results | | | | | | with caution as results | | | | | | have not been validated | | | | | | for this calculation | | | | | | method Please Note:Total | | | | | [...] | Testing Performed at: [facility] BLADIMIRIA: [id number] - [address] | REFERENCE LAB | | [place] [address] | [facility] | + + + + + + + + | Performing | Address | City/State/Zipcode | Phone Number | | Organization | | | | + + + + + | REFERENCE LAB | [address] | [place] | [phone] | | [facility] | | [address] | | + + + + + | REFERENCE LAB | [address] | [place] | [phone] | | [facility] | | [address] | | + + + + + CBC with Differential (07/12/2018 4:03 PM PDT) + + + + + + [...] + + + + + + | Red Blood | 4.18 | 3.8 - 5.1 | REFERENCE | | | Cells | | | LAB | | | [...] Testing Performed at: [facility] CLIA: [id number] - [address] | REFERENCE LAB | | [place] [address] | [facility] | + + + + + + + + | Performing | Address | City/State/Zipcode | Phone Number | | Organization | | | | + + + + + | REFERENCE LAB | [address] | [place] | [phone] | | [place] | | [address] | | + + + + + | REFERENCE LAB | [address] [facility] | [place] | [phone] | | [facility] | | [address] | | + + + + + documented in this encounter Visit Diagnoses + + | Diagnosis | + + | Fatigue, unspecified type - Primary | + + documented in this encounter
--- OUTSIDE RECORDS SUMMARY | ~2019-12-12 | XMS | Encounter Summary ---
Demographics + + + | Address | [address] | | | [place] [address] | + + + | Home Phone | | + + + | Preferred Language | Unknown | + + + | Marital Status | | + + + | Latter-Day Affiliation | 1038 | + + + | Race | White | + + + | Ethnic Group | Not or | + + + Author + + + | Author | [facility] | | | and [place] | + + + | Organization | [facility] | | | [...] [place], | | | | | [place] [address] | | + + + + + Care Team Providers + +------+ + | Care Digital Cartographic Technician Name | Role | Phone | + +------+ + | Alex Alvarenga DO | PCP | | + +------+ + Reason for Visit + +--------+ + | Reason | Onset | Comments | | | Date | | + +--------+ + | Medication Refill | 09/23/ | | | | 2019 | | + +--------+ + Encounter Details +--------+--------+ + + + | Date | Type | Department | Care Team | Description | +--------+--------+ + + + | 09/23/ | Refill | [facility] | Kiara Moe, | Medication Refill | | 2018 | | [facility] | [facility] [address] | | | | | MEDICAL CL[facility] [address] | | | | | | [address], | | | | | | [place] [address] | | | | | | [phone] | | | +--------+--------+ + + + [...] Encounter - Kiara Moe CC CMA - 09/23/2018 11:45 AM PDT Labs: UTD Last filled 08/20/18 Patient was last seen on Recent Visits 08/09/2018 Concussion without loss of consciousness, initial encounter [facility] Alex Alvarenga, DO Office Visit 07/15/2018 Depression with anxiety [facility] Alex Alvarenga, DO Office Visit 01/01/2018 Hypertension, unspecified type [facility] Alex Alvarenga, DO Office Visit ALYSSIA Mccauley [...] [place] | | | | | | [address] | | | | | | [phone] | | | | | | | | +--------+---------+ + + + documented as of this encounter Visit Diagnoses Not on filedocumented in this encounter"
--- OUTSIDE RECORDS SUMMARY | ~2019-12-12 | XMS | Encounter Summary ---
Demographics + + + | Address | [address] | | | [place] [address] | + + + | Home Phone | | + + + | Preferred Language | Unknown | + + + | Marital Status | | + + + | Religion Affiliation | 1038 | + + + | Race | White | + + + | Ethnic Group | Not or | + + + Author + + + | Author | [facility] | | | and [place] | + + + | Organization | [facility] | | | [...] [place], | | | | | [place] [address] | | + + + + + Care Team Providers + +------+ + | Care Prom Burn Off Operator Name | Role | Phone | + +------+ + | Alex Alvarenga DO | PCP | | + +------+ + Reason for Visit + +--------+ + | Reason | Onset | Comments | | | Date | | + +--------+ + | Headache | 08/09/ | | | | 2019 | | + +--------+ + Encounter Details +--------+ + + + + | Date | Type | Department | Care Team | Description | +--------+ + + + + | 08/09/ | Telephone | [facility] | Alex Alvarenga | Headache | | 2019 | | [facility] | E, DO [address] | | | | | [facility] [address] | [place], [place] | | | | | [address] [place], | [address] | | | | | [place] [address] | [phone] | | | | | [phone] | | | +--------+ + + + [...] Encounter - Kiara Moe CC CMA - 08/09/2018 1:47 PM PDTSusan is coming in today. ALYSSIA Mccauley CMA elephone Encoun april - Alex Alvarenga DO - 08/09/2018 11:48 AM PDTLaurita the headaches are from the bloo d pressure elevation..... Come in today for bp check and a looksee. elephone Encounter - Lena Ortiz LPN - 08/09/2018 11:35 AM PD TPt called stating she was seen in the ER yesterday due to a UTI. (States she didn't get re sults from us until late in the day so went to ER). ER doctor told her that her BP was 203 /99 and she should let her PCP know about this. Pt stated she thought bp was high because s he had the infection. Pls advise if you want pt to come in. Pt also stated that "She tho ught she had a sinus infection also, having "extreme headaches". Pt asked for Dr. Alvarenga to prescribe Sudafed. I know Sudafed can increase BP. Please advise regarding that as well. Thanks sls docume nted in this encounter Plan of Treatment +--------+---------+ + + + | Date | Type | Specialty | Care Team | Description | +--------+---------+ + + + | 12/21/ | Office | Primary Care | Alex Alvarenga | | | 2020 | Visit | | E, DO [address] | | | | | | [place], [place] | | | | | | [address] | | | | | | [phone] | | | | | | | | +--------+---------+ + + + documented as of this encounter Visit Diagnoses Not on filedocumented in this encounter
--- OUTSIDE RECORDS SUMMARY | ~2019-12-12 | XMS | Encounter Summary ---
Demographics + + + | Address | [address] | | | [place] [address] | + + + | Home Phone [...] | Author | [facility] | | | and [place] | + + + | Organization | [facility] | | [...] [place], | | | | | [place] [address] | | + + + + + Care Team Providers + +------+ + | Care Seamstress Fitter Name | Role | Phone | + +------+ + | Alex Alvarenga DO | PCP | | + +------+ + Reason for Visit + +--------+ + | Reason | Onset | Comments | | | Date | | + +--------+ + | Lab Order | 12/05/ | for a UA | | | 2019 | | + +--------+ + Encounter Details +--------+ + + + + | Date | Type | Department | Care Team | Description | +--------+ + + + + | 12/05/ | Telephone | [facility] | Alex Alavrenga | Lab Order (for a UA) | | 2018 | | [facility] | E, DO [address] | | | | | MEDICAL CLIN[facility] [address] | [place], [place] | | | | | [address] [place], | [address] | | | | | [place] [address] | [phone] | | | | | [phone] | | | +--------+ + + + [...] Notes Telephone Encounter - Zoila Ruff CC [facility] - 12/05/2018 3:30 PM PDTOrdered and faxed. P atient reports burning with urination, frequent urination, denies fever. ALYSSIA Larson [facility] elephone Encounte r - Alex Alvarenga DO - 12/05/2018 3:13 PM PDTOf course. elephone Encounter - Reji Quiñones - 9 2:01 PM PDTPt believes she has a UTI, please send a slip for a UA to [facility] in [place] on as soon as possible/robin P DTdocumented in this encounter Plan of Treatment +--------+---------+ + + + | Date | Type | Specialty | Care Team | Description | +--------+---------+ + + + | 12/21/ | Office | Primary Care | Alex Alvarenga | | | 2019 | Visit | | DO [address] | | | | | | [place] | | | | | | [address] | | | | | | [phone] | | | | | | | | +--------+---------+ + + + + +------+--------+ + + | Name | Type | Priori | Associated Diagnoses | Order Schedule | | | | ty | | | + +------+--------+ + + | Urinalysis with | Lab | Routin | Frequent UTI | Expected: | | Microscopic with | | e | | 12/05/2018, Expires: | | Culture if Indicated | | | | 12/06/2019 | + +------+--------+ + + documented as of this encounter Procedures + +--------+ + + + | Procedure Name | Priori | Date/Time | Associated Diagnosis | Comments | | | ty | | | | + +--------+ + + + | URINALYSIS WITH | Routin | 12/05/2018 | | Results for this | | MICROSCOPIC WITH | e | 12:00 AM | | procedure are in the | | CULTURE IF INDICATED | | PDT | | results section. | + +--------+ + + + | CULTURE, URINE | Routin | 12/05/2018 | | Results for this | | | e | 12:00 AM | | procedure are in the | | | | PDT | | results section. | + +--------+ + + + documented in this encounter Results Culture, Urine (12/05/2018 12:00 AM PDT) + + + + + + | Component | Value | Ref Range | Performed | Pathologist | | | | | At | Signature | + + + + + + | CULTURE | SEE NOTE (A)Comment: | | REFERENCE | | | BACTERIA | URINE CULTURE | | LAB | | | URINE | 12/07/2018 07:47 AM | | [facility] | | | | No growth after | | | | | | overnight incubation. | | | | | | 12/08/2018 09:22 AM | | | | | | Over 100,000 CFU/mL | | | | | | Lactose Director Pharmaceutical , | | | | | | Identification and | | | | | | susceptibility to | | | | | | follow. 12/09/2018 | | | | | | 06:51 AM L[facility] | | | | | | Director Pharmaceutical identified as | | | | | [...] | | | | | | | AMOX/CLAV ACID <=2 | | | | | | [...] | | | | | | CEFTRIAXONE <=1 | | | | | | | | | | | | | | | | | | | | | | | | CEFEPIME <=1 | | | | | | | | | | | | | | | | | | | | | | | | AZTREONAM <=1 | | | | | | | | | | | | | | | | | | | | | | | | ERTAPENEM <=0.5 | | | | | | | | | | | | | | | | | | | | | | | | IMIPENEM | | | | | | <=0.25 | | | | | | | | | | | | | | | | | | MEROPENEM | | | | | | <=0.25 | | | | | | | | | | | | | | | | | | GENTAMICIN <=1 | | | | | | | | | | | | | | | | | | | | | | | | CIPROFLOXACIN <=0.25 | | | | | | | | | | | | | | | | | | | | | | | | LEVOFLOXACIN <=0.12 | | | | | | | | | | | | | | | | | | | | | | | | TETRACYCLINE <=1 | | | | | | | | | | | | | | | | | | | | | | | | NITROFURANTOIN <=16 | | | | | | | | | | | | | | | | | | TMP/ | | | | | | SMX <=20 | | | | | | | | | | | | | | | | | | | | | | | | Testing Performed at: | | | | | | [address] [place] [address]; | | | | | | [place], [place] | | | | | | [id number] Phone: | | | | | | | | | | + + + + + + + + | Specimen | + + | | + + + + + + + | Performing | Address | City/State/Zipcode | Phone Number | | Organization | | | | + + + + + | REFERENCE LAB | [address] | [place], [place] | [phone] | | [facility] | | [address] | | + + + + + | REFERENCE LAB | [address] | [place], [place] | [phone] | | [facility] | | [address] | | + + + + + Urinalysis with Microscopic with Culture if Indicated (12/05/2018 12:00 AM PDT) + + + + + [...] + + + + | Clarity, | CLOUDY | | REFERENCE | | | Urine | | | LAB | | | | | | [facility] | | + + + + + + | Specific | 1.017 | 1.005 - 1.030 | REFERENCE | | | [place] | | | LAB | | | [...] + + + | Blood, UA | MODERATE | negative | REFERENCE | | | [...] + + + | Other Casts | HYALINE 1+ | 0-1+ Hyaline | REFERENCE | | | | | | LAB | | | | | | [facility] | | + + + + + + | WBC, UA | >50 (H) | 0 - 4 | REFERENCE | | | | | | LAB | | | | | | [facility] | | + + + + + + | RBC, UA | 30 (H) | 0 - 4 | REFERENCE [...] + + + | CRYSTAL UA | CA OXALATE 2+ | 0-1+ | REFERENCE | | | [...] Testing Performed at: [facility] CLIA: [id number] - [address] | REFERENCE LAB | | [place] [address] | [facility] | + + + + + + + + | Performing | Address | City/State/Zipcode | Phone Number | | Organization | | | | + + + + + | REFERENCE LAB | [address] | [place] | [phone] | | [facility] | | [address] | | + + + + + | REFERENCE LAB | [address] | [place] | [phone] | | [facility] | | [address] | | + + + + + documented in this encounter Visit Diagnoses + + | Diagnosis | + + | Frequent UTI - Primary Urinary tract infection, site not specified | + + documented in this encounter"
--- OUTSIDE RECORDS SUMMARY | ~2019-12-12 | XMS | Encounter Summary ---
Demographics + + + | Address | [address] | | | [place] [address] | + + + | Home Phone | | + + + | Preferred Language | Unknown | + + + | Marital Status | | + + + | Roman Catholic Affiliation | 1038 | + + + | Race | White | + + + | Ethnic Group | Not or | + + + Author + + + | Author | [facility] | | | and [place] | + + + | Organization | [facility] | | | [...] [place], | | | | | [place] [address] | | + + + + + Care Team Providers + +------+ + | Care Steamtable Attendant Railroad Name | Role | Phone | + +------+ + | Alex Alvarenga DO | PCP | | + +------+ + Reason for Visit +--------+--------+ + | Reason | Onset | Comments | | | Date | | +--------+--------+ + | Radha | 12/17/ | radha on piedad | | | 2018 | | +--------+--------+ + Encounter Details +--------+ + + + + | Date | Type | Department | Care Team | Description | +--------+ + + + + | 12/17/ | Telephone | [facility] | Alex Alvarenga | Radha (sore on chin) | | 2017 | | [facility] | E, DO [address] | | | | | MEDICAL CLINIC [address] | [place], [place] | | | | | [address] [place], | [address] | | | | | [place] [address] | [phone] | | | | | [phone] | | | +--------+ + + + [...] Notes Telephone Encounter - Zoila Ruff CC [facility] - 12/17/2017 10:41 AM PDTFormatting of this no te might be different from the original. Alex Alvarenga, DO You 35 minutes ago (10:03) Have her send photo of lesion into Webbynode. (Routing comment) elephone Zoila Dacosta CC [facility] - 12/17/2017 10:40 AM PDTLeft detailed message with My Chart help desk line as well. ALYSSIA Larson [facility] Electronically signed by ALYSSIA Addison [facility] at 12/17/2017 10:41 AM PDTTelephone Peri Jordan - 12/17/2017 9:39 AM PDTPatients ongoing sore on chin seems to be an a cute problem now as thinks it's infected as red around the sore and her chin is sore. No 60 min appt available so wondering if something can be called in or advice on what to do. Wants to remind you if a antibiotic is prescribed she will need a rx for Diflucan for yeast infec tion as well. Pt does have an establishing appointment on 01-01-18. Please advise Bi Odilon Dalal documented in this encou nter Plan of Treatment +--------+---------+ + + + | Date | Type | Specialty | Care Team | Description | +--------+---------+ + + + | 12/21/ | Office | Primary Care | Alex Alvarenga | | | 2019 | Visit | | DO [address] | | | | | | [place] | | | | | | [address] | | | | | | [phone] | | | | | | | | +--------+---------+ + + + documented as of this encounter Visit Diagnoses Not on filedocumented in this encounter"
--- OUTSIDE RECORDS SUMMARY | ~2019-12-12 | XMS | Encounter Summary ---
Demographics + + + | Address | [address] | | | [place] [address] | + + + | Home Phone | | + + + | Preferred Language | Unknown | + + + | Marital Status | | + + + | Denominational Affiliation | 1038 | + + + | Race | White | + + + | Ethnic Group | Not or | + + + Author + + + | Author | [facility] | | | and [place] | + + + | Organization | [facility] | | | [...] [place], | | | | | [place] [address] | | + + + + + Care Team Providers + +------+ + | Care Dancer Or Choreographer Name | Role | Phone | + +------+ + | Alex Alvarenga DO | PCP | | + +------+ + Reason for Visit + +--------+ + | Reason | Onset | Comments | | | Date | | + +--------+ + | Medication Refill | 09/18/ | | | | 2018 | | + +--------+ + Encounter Details +--------+--------+ + + + | Date | Type | Department | Care Team | Description | +--------+--------+ + + + | 09/18/ | Refill | [facility] | Kiara Moe, | Medication Refill | | 2018 | | [facility] | CC AUTO JOB ESTIMATOR | | | | | MEDICAL CLINIC [address] | | | | | | [address] [facility], | | | | | | [place] [address] | | | | | | [phone] | | | +--------+--------+ + + + [...] Notes Telephone Encounter - Kiara Moe CC AUTO JOB ESTIMATOR - 09/18/2018 11:07 AM PDTAmbien refill refax ed from 09/09/18 ALYSSIA Mccauley CMA documented in th is encounter Plan of Treatment +--------+---------+ + + + | Date | Type | Specialty | Care Team | Description | +--------+---------+ + + + | 12/21/ | Office | Primary Care | Alex Alvarenga | | | 2019 | Visit | | DO Zac [address] [place] [address] ST | | | | | | [place] | | | | | | [address] | | | | | | [phone] | | | | | | | | +--------+---------+ + + + documented as of this encounter Visit Diagnoses Not on filedocumented in this encounter"
--- OUTSIDE RECORDS SUMMARY | ~2019-12-12 | XMS | Encounter Summary ---
Demographics + + + | Address | [address] | | | [place] [address] | + + + | Home Phone [...] | [facility] | | | and [...] [place], | | | | | [place] [address] | | + + + + + Care Team Providers + +------+ + | Care Mirror Polisher Name | Role | Phone | + +------+ + | Alex Alvarenga DO | PCP | | + +------+ + Reason for Visit + +--------+ + | Reason | Onset | Comments | | | Date | | + +--------+ + | Medication Refill | 08/31/ | | | | 2020 | | + +--------+ + Encounter Details +--------+--------+ + + + | Date | Type | Department | Care Team | Description | +--------+--------+ + + + | 08/31/ | Refill | [facility] | Alex Alvarenga | Medication Refill | | 2019 | | [facility] | E, DO [address] | | | | | MEDICAL CLIN[address] | [place], [place] | | | | | [address] [place], | [address] | | | | | [place] [address] | [phone] | | | | | [phone] | | | +--------+--------+ + + + [...] this encounter Miscellaneous Notes Telephone Encounter - Rut Medley CC LIGHTING TECHNICIAN - 09/01/2019 4:05 PM PDTFormatting of dez s note might be different from the original. Requested Prescriptions Pending Prescriptions Disp Refills zolpidem (AMBIEN) 5 mg tablet 30 tablet 3 Sig: TAKE ONE TABLET BY MOUTH EVERY DAY AT BEDTIME Patient's last refill 07/28/2019 . Patient was last seen on Recent Visits Department Visit Type Primary Dx 06/17/2019 [facility] Office Visit Frequent urination 08/09/2018 [facility] Office Visit Concussion without l oss of consciousness, initial encounter 07/15/2018 [facility] Office Visit Depression with anxi ety No results found for: HBA1C Lab Results Component Value Date WBC 4.4 (L) 07/12/2018 HCT 40.4 07/12/2018 MCV 96.5 07/12/2018 PLT 246 07/12/2018 Lab Results Component Value Date CREA 0.86 07/12/2018 BUN 17 07/12/2018 NA 141 07/12/2018 K 3.9 07/12/2018 CL 104 07/12/2018 CO2 24 07/12/2018 Lab Results Component Value Date ALT 16 07/12/2018 AST 19 07/12/2018 ALKPHOS 49 07/12/2018 ALYSSIA Rodriguez CMA elephone Mayteo Erica Adler - 09/01/2019 3:40 PM PDTzolpidem (AMBIEN) 5 mg tablet Pt is requesting a 90 day supply [facility] Pt is requesting a call back to let her know if this is okay or not. Pt will be out of [facility] tomorrow Thanks, Mackectronically signed by Erica Michael at 09/01/2019 3:41 PM PDTdocumented in dez s encounter Plan of Treatment +--------+---------+ + + + | Date | Type | Specialty | Care Team | Description | +--------+---------+ + + + | 12/21/ | Office | Primary Care | Alex Alvarenga | | | 2019 | Visit | | DO [address] | | | | | | [place] | | | | | | [address] | | | | | | [phone] | | | | | | | | +--------+---------+ + + + documented as of this encounter Visit Diagnoses Not on filedocumented in this encounter"
--- OUTSIDE RECORDS SUMMARY | ~2019-12-12 | XMS | Encounter Summary ---
Demographics + + + | Address | [address] | | | [place] [address] | + + + | Home Phone | | + + + | Preferred Language | Unknown | + + + | Marital Status | | + + + | Bahai Affiliation | 1038 | + + + | Race | White | + + + | Ethnic Group | Not or | + + + Author + + + | Author | [facility] | | | and [place] | + + + | Organization | [facility] | | [...] [place], | | | | | [place] [address] | | + + + + + Care Team Providers + +------+ + | Care Chief Design Drafter Name | Role | Phone | + +------+ + | Alex Alvarenga DO | PCP | | + +------+ + Reason for Visit + +--------+ + | Reason | Onset | Comments | | | Date | | + +--------+ + | Medication Refill | 05/21/ | | | | 2020 | | + +--------+ + Encounter Details +--------+--------+ + + + | Date | Type | Department | Care Team | Description | +--------+--------+ + + + | 05/21/ | Refill | [facility] | Alex Alvarenga | Medication Refill | | 2019 | | [facility] | E, DO [address] | | | | | MEDICAL CLINIC [address] | [place], [place] | | | | | [address] [place], | [address] | | | | | [place] [address] | [phone] | | | | | [phone] | | | +--------+--------+ + + + [...] Notes Telephone Encounter - Kiara Moe CC BALANCE WHEEL SCREW HOLE DRILLER - 05/21/2019 10:54 AM PST Patient was last seen on Recent Visits 08/09/2018 Concussion without loss of consciousness, initial encounter [facility] Alex Frank Colette, DO Office Visit 07/15/2018 Depression with anxiety [facility] Alex Zac Colette, DO Office Visit 01/01/2018 Hypertension, unspecified type [facility] Alex Alvarenga, DO Office Visit ALYSSIA Mccauley CMA elephone Peri Harris - 05/21/2019 10:12 AM PSTzolpidem (AMBIEN) 5 mg tablet Patient is now completely out and did say that Bi [facility] sent a request last week but Rx wasn 't filled. Claudio Thomason in [place] Peri Dalal documented in this encou nter Plan [...] [place] | | | | | | [address] | | | | | | [phone] | | | | | | | | +--------+---------+ + + + documented as of this encounter Visit Diagnoses Not on filedocumented in this encounter"
--- OUTSIDE RECORDS SUMMARY | ~2019-12-12 | XMS | Encounter Summary ---
Demographics + + + | Address | [address] | | | [place] [address] | + + + | Home Phone | | + + + | Preferred Language | Unknown | + + + | Marital Status | | + + + | Christianity Affiliation | 1038 | + + + | Race | White | + + + | Ethnic Group | Not or | + + + Author + + + | Author | [facility] | | | and [place] | + + + | Organization | [facility] | | | [...] [place], | | | | | [place] [address] | | + + + + + Care Team Providers + +------+ + | Care Wind Turbine Performance Engineer Name | Role | Phone | + +------+ + | Alex Alvarenga DO | PCP | | + +------+ + Encounter Details +--------+ + + + + | Date | Type | Department | Care Team | Description | +--------+ + + + + | 12/06/ | Orders Only | [facility] | Brian Cortez, | Acute cystitis with | | 2018 | | [facility] | DNP [address] | hematuria (Primary | | | | MEDICAL CLINIC [address] | [place] [address] | Dx) | | | | [address] [place], | [phone] | | | | | [place] [address] | | | | | | [phone] | | | +--------+ + + + [...] Visit | | DO [address] | | | | | | [place] | | | | | | [address] | | | | | | [phone] | | | | | | | | +--------+---------+ + + + documented as of this encounter Visit Diagnoses + + | Diagnosis | + + | Acute cystitis with hematuria - Primary Acute cystitis | + + documented in this encounter"
--- OUTSIDE RECORDS SUMMARY | ~2019-12-12 | XMS | Encounter Summary ---
Demographics + + + | Address | [address] | | | [place] [address] | + + + | Home Phone | | + + + | Preferred Language | Unknown | + + + | Marital Status | | + + + | Catholic Affiliation | 1038 | + + + | Race | White | + + + | Ethnic Group | Not or | + + + Author + + + | Author | [facility] | | | and [place] | + + + | Organization | [facility] | | | [...] [place], | | | | | [place] [address] | | + + + + + Care Team Providers + +------+ + | Care Crew Boss Name | Role | Phone | + +------+ + | Alex Alvarenga DO | PCP | | + +------+ + Encounter Details +--------+ + + + + | Date | Type | Department | Care Team | Description | +--------+ + + + + | 12/31/ | Abstract | [facility] | Alex Alvarenga | | | 2018 | | [facility] | E, DO [address] | | | | | MEDICAL CLINIC [address] | [place], [place] | | | | | [address] [place], | [address] | | | | | [place] [address] | [phone] | | | | | [phone] | | | +--------+ + + + + Social History + +-------+ +--------+------+ | Tobacco Use | Types | Packs/Day | Years | Date | | | | | Used | | + +-------+ +--------+------+ | Former Smoker | | | | | + [...] [place] | | | | | | [address] | | | | | | [phone] | | | | | | | | +--------+---------+ + + + documented as of this encounter Visit Diagnoses Not on filedocumented in this encounter"
--- OUTSIDE RECORDS SUMMARY | ~2019-12-12 | XMS | Encounter Summary ---
Demographics + + + | Address | [address] | | | [place] [address] | + + + | Home Phone | | + + + | Preferred Language | Unknown | + + + | Marital Status | | + + + | Denominational Affiliation | 1038 | + + + | Race | White | + + + | Ethnic Group | Not or | + + + Author + + + | Author | [facility] | | | and [place] | + + + | Organization | [facility] | | [...] [place], | | | | | [place] [address] | | + + + + + Care Team Providers + +------+ + | Care Transitional Care Nurse Name | Role | Phone | + +------+ + | Alex Alvarenga DO | PCP | | + +------+ + Reason for Visit +---------+--------+ + | Reason | Onset | Comments | | | Date | | +---------+--------+ + | Results | 08/09/ | | | | 2019 | | +---------+--------+ + Encounter Details +--------+ + + + + | Date | Type | Department | Care Team | Description | +--------+ + + + + | 08/09/ | Telephone | [facility] | Irma Peng, | Results | | 2019 | | [facility] | SENIOR DATA MINING ANALYST [address] | | | | | [facility] [address] | [place] [address] | | | | | [address] [place], | [phone] | | | | | [place] [address] | | | | | | [phone] | | | +--------+ + + + [...] this encounter Miscellaneous Notes Telephone Encounter - Lena Ortiz LPN - 08/09/2018 9:18 AM PDTPt notified via [facility] rt and also detailed mssg left on ok per [facility] release. elephone Encounter - Lena Ortiz LPN - 2018 9:18 AM PDT----- Message from IBIS Kilpatrick sent at 08/07/2018 18:21 PDT ----- UA+ for UTI - Bactrim started documented in this encounter Plan of Treatment +--------+---------+ + + + | Date | Type | Specialty | Care Team | Description | +--------+---------+ + + + | 12/21/ | Office | Primary Care | Alex Alvarenga | | | 2019 | Visit | | [address] | | | | | | [place] | | | | | | [address] | | | | | | [phone] | | | | | | | | +--------+---------+ + + + documented as of this encounter Visit Diagnoses Not on filedocumented in this encounter"
--- OUTSIDE RECORDS SUMMARY | ~2019-12-12 | XMS | Encounter Summary ---
Demographics + + + | Address | [address] | | | [place] [address] | + + + | Home Phone | | + + + | Preferred Language | Unknown | + + + | Marital Status | | + + + | Episcopal Affiliation | 1038 | + + + | Race | White | + + + | Ethnic Group | Not or | + + + Author + + + | Author | [facility] | | | [...] [place], | | | | | [place] [address] | | + + + + + Care Team Providers + +------+ + | Care Residential Framing Carpenter Name | Role | Phone | + +------+ + | Alex Alvarenga DO | PCP | | + +------+ + Reason for Referral Evaluate & Treat (Routine) +--------+ + + + + + | Status | Reason | Specialty | Diagnoses / | Referred By | Referred To | | | | | Procedures | Contact | Contact | +--------+ + + + + + | Closed | Specialty | Dermatology | Diagnoses | Colette | Shree | | | Services | | Nonhealing | Alex Frank | Dermatology | | | Required | | nonsurgical | DO [address] | [address] | | | | | wound Open | [address] [place] [address] | | | | | wound of | [facility], [place] | [place], [place] | | | | | face, | [address] | [address] | | | | | initial | Phone: | Phone: | | | | | encounter | [phone] | [phone] | | | | | | Fax: | Fax: | | | | | | [phone] | [phone] | +--------+ + + + + + Reason for Visit + +--------+ + | Reason | Onset | Comments | | | Date | | + +--------+ + | Referral | 02/13/ | | | | 2018 | | + +--------+ + | Phone Attempt | 02/13/ | [facility] with referral information requested | | | 2018 | | + +--------+ + Encounter Details +--------+ + + + + | Date | Type | Department | Care Team | Description | +--------+ + + + + | 02/13/ | Telephone | [facility] | Alex Alvarenga | Referral; Phone | | 2018 | | [facility] | E, DO [address] | Attempt ([facility] with | | | | MEDICAL [facility] [address] | [place], [place] | referral information | | | | [place], | [address] | requested) | | | | [place] [address] | [phone] | | | | | [phone] | | | +--------+ + + + [...] Encounter - Zoila Ruff CC CMA - 02/13/2019 3:33 PM PDTReferral placed, left detailed message with patient. ALYSSIA Larson CMA elephone Marilynn jimenez - Alex Alvarenga DO - 02/13/2019 3:05 PM PDTYes, thank you. I am aware of the lesion. elephone Encounter - Peri Dalal - 02/13/2019 1:51 PM PDTPatient returned call and I asked for the information you needed which is: Dr. Cameron Rainey, Plastic Surgeon for cosmetic surgery and dermatology and located in [facility] Reason for referral: She has a draining sore on the right side of her chin that's draining green & blood . She was seen by a Dr. Pacheco in [facility] (she wasn't sure on the spell ing of doctor name) who is referring to Dr. Rainey but referral needs to be from her pcp Dr Nura Alvarenga. She is requesting this referral to be done DANYELL as she can get into Dr. Rainey the or week of February if they get referral soon enough. Call if any additional questions Peri Dalal elephone Encounter - Kiara Claros CC NOODLE MAKER - 02/13/2019 11:[address] Samaniego, what is his/ her specialt y, where is the doctor, and what is the reason for referral? elephone Encounter - AlecErica 02/13 11:03 AM PDTPt is requesting a referral to . Please call with questions. Thanks, Mackectronically signed by Erica Michael at 02/13/2019 11:07 AM PDTdocumente d in this encounter Plan of Treatment +--------+---------+ + + + | Date | Type | Specialty | Care Team | Description | +--------+---------+ + + + | 12/21/ | Office | Primary Care | Alex Alvarenga | | | 2019 | Visit | | [address] | | | | | [place], [place] | | | | | | [address] | | | | | | [phone] | | | | | | | | +--------+---------+ + + + + + +--------+ + + | Name | Type | Priori | Associated Diagnoses | Order Schedule | | | | ty | | | + + +--------+ + + | Dermatology, | Outpatient | Routin | Nonhealing | Ordered: 02/13/2019 | | External - AMB | Referral | e | nonsurgical wound | | | Referral | | | Open wound of face, | | | | | | initial encounter | | + + +--------+ + + documented as of this encounter Visit Diagnoses + + | Diagnosis | + + | Nonhealing nonsurgical wound - Primary Open wound(s) (multiple) of unspecified | | site(s), complicated | + + | Open wound of face, initial encounter | + + documented in this encounter"
--- OUTSIDE RECORDS SUMMARY | ~2019-12-12 | XMS | Encounter Summary ---
Demographics + + + | Address | [address] | | | [place] [address] | + + + | Home Phone [...] + + + | Author | [facility] | | | and [place] | + + + | Organization | [facility] | | | and [place] | + + + | Address | Unknown | + + + | Phone | Unavailable | + + + Support + + + + + | Name | Relationship | Address | Phone | + + + + + | Eric Guerrier | ECON | [address] [place], | | | | | [place] [address] | | + + + + + Care Team Providers + +------+ + | Care Last Putter Away Name | Role | Phone | + +------+ + | Alex Alvarenga DO | PCP | | + +------+ + Reason for Visit +---------+--------+ + | Reason | Onset | Comments | | | Date | | +---------+--------+ + | Illness | 08/09/ | | | | 2019 | | +---------+--------+ + Encounter Details +--------+ + + + + | Date | Type | Department | Care Team | Description | +--------+ + + + + | 08/09/ | Telephone | [facility] | Lena Ortiz, | Illness | | 2019 | | [facility] RN | | | | | [facility] [address] | | | | | [address] [facility] | | | | | | [place] [address] | | | | | | [phone] | | | +--------+ + + + [...] - Kiara Moe CC CMA - 08/09/2018 1:36 [address] and place in 's box for signature. ALYSSIA Mccauley CMA elephone Encoun Alex Schultz DO - 08/09/2018 10:57 AM PDTIt is fine to write note off work. Radha ctronically signed by Alex Alvarenga DO at 08/09/2018 10:58 AM PDTTelephone Encounter - Lena Ortiz LPN - 08/09/2018 9:56 AM PDTPt called stating she needed a note for work excusing her for yesterday and today due to UTI. PT said to ask Dr. Alvarenga but I know urbano t Naa Peng sent in the prescription. Note routed to Dr. Alvarenga to see if he wants to sign the note? Or if he would like me to have Naa Peng sign the note? Thanks sls (I will type the note after finding out who wishes to sign.) documented in this encounter Plan of Treatment +--------+---------+ + + + | Date | Type | Specialty | Care Team | Description | +--------+---------+ + + + | 12/21/ | Office | Primary Care | Alex Alvarenga | | | 2019 | Visit | | DO [address] | | | | | | [place] | | | | | | [address] | | | | | | [phone] | | | | | | | | +--------+---------+ + + + documented as of this encounter Visit Diagnoses Not on filedocumented in this encounter"
--- OUTSIDE RECORDS SUMMARY | ~2019-12-12 | XMS | Encounter Summary ---
Demographics + + + | Address | [address] | | | [place] [address] | + + + | Home Phone | | + + + | Preferred Language | Unknown | + + + | Marital Status | | + + + | Caodaism Affiliation | 1038 | + + + | Race | White | + + + | Ethnic Group | Not or | + + + Author + + + | Author | [facility] | | | and [place] | + + + | Organization | [facility] | | | and [place] | + + + | Address | Unknown | + + + | Phone | Unavailable | + + + Support + + + + + | Name | Relationship | Address | Phone | + + + + + | Eric Guerrier | ECON | [address] [place], | | | | | [place] [address] | | + + + + + Care Team Providers + +------+ + | Care Individual Pension Consultant Name | Role | Phone | + +------+ + PCP | Unavailable | + +------+ + Encounter Details +--------+ + + + + | Date | Type | Department | Care Team | Description | +--------+ + + + + | [facility]26/ [facility] | | | | 2006 | Encounter | MED CTR XRAY [address] | | | | | | [place] | | | | | | [place] [address] | | | | | | [phone] | | | +--------+ + + + [...] [place] | | | | | | [address] | | | | | | [phone] | | | | | | | | +--------+---------+ + + + documented as of this encounter Visit Diagnoses Not on filedocumented in this encounter"
--- OUTSIDE RECORDS SUMMARY | ~2019-12-12 | XMS | Encounter Summary ---
Demographics + + + | Address | [address] | | | [place] [address] | + + + | Home Phone | | + + + | Preferred Language | Unknown | + + + | Marital Status | | + + + | Uatsdin Affiliation | 1038 | + + + | Race | White | + + + | Ethnic Group | Not or | + + + Author + + + | Author | [facility] | | | and [place] [...] [place], | | | | | [place] [address] | | + + + + + Care Team Providers + +------+ + | Care Lockstitch Sleeve Maker Name | Role | Phone | + +------+ + | Alex Alvarenga DO | PCP | | + +------+ + Reason for Visit + +--------+ + | Reason | Onset | Comments | | | Date | | + +--------+ + | Medication Refill | 10/08/ | | | | 2018 | | + +--------+ + Encounter Details +--------+ + + + + | Date | Type | Department | Care Team | Description | +--------+ + + + + | 10/08/ | Telephone | [facility] | Alex Alvarenga | Medication Refill | | 2019 | | [facility] | E, DO [address] | | | | | MEDICAL CLIN[facility] [address] | [place], [place] | | | | [address] [place], | [address] | | | | | [place] [address] | [phone] | | | | | [phone] | | | +--------+ + + + [...] this encounter Miscellaneous Notes Telephone Encounter - Siders, Alexia N, CC ELDER ASSISTANT - 10/09/2018 11:02 AM PDTLeft detailed vm at the pharmacy ALYSSIA Mccauley CMA elephone Alex Ray DO - 10/09/2018 10:35 AM PDTYes 90 days elephone Kiara Almanzar CC CMA - 10/09/2018 10:04 AM PDT1. Okay for patient to mix hers elf? 2. Days supply? ALYSSIA Mccauley CMA elephone Shara Perry - 10/09/2018 9:59 AM PDTClaudio [place] regards to this med ication They need a day supply of this, and they would also like clarification on the instructions. If you are wanting them combined, they would like the pt to mix it instead of them mixing i t for her so it is less expensive through ins. Please call [facility] in [place] to address. Thanks, Shara Moore elephone Encounter - Alex Alvarenga DO - 10/08/2018 10:56 AM PDTYes TAC/Eucerin cream 454 Gm Apply to affected skin bid prn One rf elephone En christiano - Karmen Lira RN - 10/08/2018 10:36 AM PDTPatient is requesting Triamcinolone 0.1% in Eucerin Apply to affected area two times a day (already compounded with equal parts eucerin cream). This medication is not on her active medication list. OK to refill? Karmen Lira RN, BSN Tdocumented in this encounter Plan of Treatment +--------+---------+ + + + | Date | Type | Specialty | Care Team | Description | +--------+---------+ + + + | 12/21/ | Office | Primary Care | Alex Alvarenga | | | 2019 | Visit | | DO [address] | | | | | | [place] | | | | | | [address] | | | | | | [phone] | | | | | | | | +--------+---------+ + + + documented as of this encounter Visit Diagnoses Not on filedocumented in this encounter"
--- OUTSIDE RECORDS SUMMARY | ~2019-12-12 | XMS | Encounter Summary ---
Demographics + + + | Address | [address] | | | [place] [address] | + + + | Home Phone | | + + + | Preferred Language | Unknown | + + + | Marital Status | | + + + | Episcopalian Affiliation | 1038 | + + + | Race | White | + + + | Ethnic Group | Not or | + + + Author + + + | Author | [facility] | | | and [place] | + + + | Organization | [facility] | | [...] [place], | | | | | [place] [address] | | + + + + + Care Team Providers + +------+ + | Care Associate Media Director Name | Role | Phone | + +------+ + | Alex Alvarenga DO | PCP | | + +------+ + Reason for Visit + + + | Reason | Comments | + + + | Establish Care | Re-establish care | + + + | Other | wilda Leal 09/2017 | + + + Encounter Details +--------+---------+ + + + | Date | Type | Department | Care Team | Description | +--------+---------+ + + + | 01/01/ | Office | [facility] | Alex Alvarenga | Hypertension, | | 2018 | Visit | [facility] | E, DO [address] | unspecified type | | | | [facility] | [place], [place] | (Primary Dx); | | | [address] [place], | [address] | Post-traumatic | | | | [place] [address] | [phone] | osteoarthritis of | | | | [phone] | | left ankle; Boil, | | | | | | face; Need for | | | | | | hepatitis C | | | | | | screening test; | | | | | | Sleep apnea, | | | | | | unspecified type; | | | | | | Need for Tdap | | | | | | vaccination; Need | | | | | | for influenza | | | | | | vaccination | +--------+---------+ + + + Social History [...] + + + | Blood Pressure | 132/80 | 01/01/2018 9:38 AM | | | | | PDT | | + + + + + | Pulse | 71 | 01/01/2018 9:38 AM | | | | | PDT | | + + + + + | Temperature | 36.4 C (97.5 F) | 01/01/2018 9:38 AM | | | | | PDT | | + + + + + | Respiratory Rate | 17 | 01/01/2018 9:38 AM | | | | | PDT | | + + + + + | Oxygen Saturation | 98% | 01/01/2018 9:38 AM | | | | | PDT | | + + + + + | Inhaled Oxygen | - | - | | | Concentration | | | | + + + + + | Weight | 113.9 kg (251 lb 3.2 | 01/01/2018 9:38 AM | | | | oz) | PDT | | + + + + + | Height | 167.6 cm (5' 6") | 01/01/2018 9:38 AM | | | | | PDT | | + + + + + | Body Mass Index | 40.54 | 01/01/2018 9:38 AM | | | | | PDT | | + + + + + documented in this encounter Progress Notes Alex Alvarenga, - 01/01/2018 9:30 AM PDT Patient ID: Tatyana Guerrier is a 52 y.o. year old female Chief Complaint: Chief Complaint Patient presents with [facility] Care Re-establish care Other Boil on [facility], since 09/2017 Assessment Hypertension, unspecified type (Primary) - CBC with Differential; Future; Expected date: 01/01/2018 - Lipid Panel; Future; Expected date: 01/01/2018 - Comprehensive Metabolic Panel; Future; Expected date: 01/01/2018 - TSH; Future; Expected date: 01/01/2018 - Urinalysis with Microscopic with Culture if Indicated; Future; Expected date: 018 Post-traumatic osteoarthritis of left ankle Boil, face Need for hepatitis C screening test - Hepatitis C, NAAT, Quant, Reflex; Future; Expected date: 01/01/2018 Sleep apnea, unspecified type Need for Tdap vaccination - Tdap vaccine greater than or equal to 7yo IM Need for influenza vaccination - Influenza PF 3Yrs or >,Quad PSKT or Vial Other orders - Zolpidem Tartrate; Take 1 tablet by mouth nightly. Dispense: 30 tablet; Refill: 3 Plan -Stop Gabapentin -Go to lab for blood work today 40 minute visit with > 50% time spent in counseling. Subjective: ALYSSA Joe presents to the clinic to re-establish care from PF, and discuss boil on her chin an d ankle issues. She is currently wearing an ankle brace, it will help prevent from having a fusion or repla cement. She is not experiencing any pain. Boil on her chin, in august she started having cold sores. Then she got the boil. The boil has not gone away. The boil would fill up with fluid, and then it bursted. She saw Shu, she popped it, cultured it, and it was clear. She saw Jesus yesterday and put a steroid injectio n in the boil. She is supposed to return to [place] if not better in one month. Current Outpatient Prescriptions Medication Sig Dispense Refill Calcium Carbonate (CALCIUM 600 PO) Take 1 tablet by mouth Daily. estradiol (ESTRACE) 1 mg tablet Take 1 mg by mouth Daily. FLUoxetine (PROZAC) 40 MG capsule Take 1 capsule by mouth Daily. 30 capsule 0 gabapentin (NEURONTIN) 100 mg capsule Take 1 capsule by mouth nightly. 30 capsule 1 losartan (COZAAR) 25 mg tablet Take 25 mg by mouth Daily. Multiple Vitamin (MULTIVITAMINS PO) Take 1 tablet by mouth Daily. valACYclovir (VALTREX) 500 mg tablet Take 500 mg by mouth 2 times daily. zolpidem (AMBIEN) 5 mg tablet Take 1 tablet by mouth nightly. 30 tablet 3 No current facility-administered medications for this visit. Patient Active Problem List Diagnosis Hypertension Aphthous ulcer Trigeminal neuralgia Boil, face Sleep apnea Post-traumatic osteoarthritis of left ankle Family History Problem Relation Age of Onset Hemochromatosis Mother Past Surgical History: Procedure Laterality Date APPENDECTOMY 1989 BILIARY TRACT SURGERY CHOLECYSTECTOMY COLONOSCOPY 06/24/2015 HYSTERECTOMY 1999 LEFT ANKLE SURGERY 2014 Social History Social History Marital status: Spouse name: N/A Number of children: N/A Years of education: N/A Occupational History Not on file. Social History Main Topics Smoking status: Never Smoker Smokeless tobacco: Never Used Alcohol use No Drug use: No Sexual activity: Not on file Other Topics Concern Not on file Social History Narrative No narrative on file No Known Allergies Review of Systems Constitutional: Negative for fatigue and fever. Respiratory: Negative for cough, chest tightness, shortness of breath and wheezing. Cardiovascular: Negative for chest pain and palpitations. Gastrointestinal: Negative for abdominal pain, nausea and vomiting. Musculoskeletal: Negative for gait problem and myalgias. Skin: Positive for wound (Boil on chin). Neurological: Negative for dizziness, syncope and headaches. Psychiatric/Behavioral: The patient is not nervous/anxious. Objective: Vitals: BP 132/80 | Pulse 71 | Temp 36.4 C (97.5 F) (Oral) | Resp 17 | Ht 1.676 m (5' 6") | Wt 113.9 kg (251 lb 3.2 oz) | SpO2 98% | ? No | BMI 40.54 kg/m Physical Exam Constitutional: She appears well-developed and well-nourished. HENT: Head: Atraumatic. Eyes: Pupils are equal, round, and reactive to light. EOM are normal. Cardiovascular: Normal rate, regular rhythm and normal heart sounds. Pulmonary/Chest: Effort normal and breath sounds normal. Abdominal: Soft. Bowel sounds are normal. Musculoskeletal: Left lower leg with AFO brace to knee. Lymphadenopathy: She has no cervical adenopathy. Neurological: She is alert. Skin: Skin is warm and dry. Circular raised scabbed lesion approx 4mm indiameter on left lower chin. Psychiatric: She has a normal mood and affect. Entered by Juan Ramon Wilson, acting as scribe for Dr. Colette DO. The documentation recorded by the scribe accurately reflects the service I personally perfo ed and the decisions made by me. Dr. Alex Alvarenga DO. 01/01/2018 10:14 Zoila Valdez CC [facility]AIN OPERATOR - 01/01/2018 9:30 AM Randy Guerrier pre sents today with Chief Complaint of: Re-establish care. Boil on chin, since 09/2017, being t reated by a Charter Coordinator Dr. Lee in [place] Current medications verified with her at time of visit. Pt currently shows no s/s of distress, shortness of breath. Vital signs: BP 132/80 | Pulse 71 | Temp 36.4 C (97.5 F) (Oral) | Resp 17 | Ht 1.67 6 m (5' 6") | Wt 113.9 kg (251 lb 3.2 oz) | SpO2 98% | ? No | BMI 40.54 kg/ m Labs Obtained per protocol: None. Verbal Report given to: Alex Alvarenga DO. ALYSSIA Larson CMA After obtaining consent, and per orders of Dr. Alex Alvarenga, injection of Fluzone given by Zoila Ruff. Site: RIGHT Deltoid. Patient tolerated well and ambulated out of clinic with out assistance. ALYSSIA Larson CMA After obtaining consent, and per orders of Dr. Alex Alvarenga, injection of TDAP given by Zoila Ruff. Site: LEFT Deltoid. Patient tolerated well and ambulated out of clinic with out assistance. ALYSSIA Larson CMA documented in this encounter Plan of Treatment +--------+---------+ + + + | Date | Type | Specialty | Care Team | Description | +--------+---------+ + + + | 12/21/ | Office | Primary Care | Alex Alvarenga | | | 2020 | Visit | | DO Z[facility] | | | | | | [place] | | | | | | [address] | | | | | | [phone] | | | | | | | | +--------+---------+ + + + + +------+--------+ + + | Name | Type | Priori | Associated Diagnoses | Order Schedule | | | | ty | | | + +------+--------+ + + | CBC with | Lab | Routin | Hypertension, | 1 Occurrences | | Differential | | e | unspecified type | starting 01/01/2018 | | | | | | until 01/01/2019 | + +------+--------+ + + | Lipid Panel | Lab | Routin | Hypertension, | 1 Occurrences | | | | e | unspecified type | starting 01/01/2018 | | | | | | until 01/01/2019 | + +------+--------+ + + | Comprehensive | Lab | Routin | Hypertension, | 1 Occurrences | | Metabolic Panel | | e | unspecified type | starting 01/01/2018 | | | | | | until 01/01/2019 | + +------+--------+ + + | TSH | Lab | Routin | Hypertension, | 1 Occurrences | | | | e | unspecified type | starting 01/01/2018 | | | | | | until 01/01/2019 | + +------+--------+ + + | Urinalysis with | Lab | Routin | Hypertension, | 1 Occurrences | | Microscopic with | | e | unspecified type | starting 01/01/2018 | | Culture if Indicated | | | | until 01/01/2019 | + +------+--------+ + + | Hepatitis C, NAAT, | Lab | Routin | Need for hepatitis | 1 Occurrences | | Quant, Reflex | | e | C screening test | starting 01/01/2018 | | | | | | until 01/01/2019 | + +------+--------+ + + documented as of this encounter Procedures + +--------+ + + + | Procedure Name | Priori | Date/Time | Associated Diagnosis | Comments | | | ty | | | | + +--------+ + + + | LABS - EXTERNAL SCAN | | 01/14/2018 | | Results for this | | | | 12:00 AM | | procedure are in the | | | | PDT | | results section. | + +--------+ + + + | LABS - EXTERNAL SCAN | | 01/11/2018 | | Results for this | | | | 12:00 AM | | procedure are in the | | | | PDT | | results section. | + +--------+ + + + | THYROID STIMULATING | Routin | 01/02/2018 | | Results for this | | HORMONE 3RD GEN | e | 8:21 AM | | procedure are in the | | | | PDT | | results section. | + +--------+ + + + | URINALYSIS WITH | Routin | 01/02/2018 | | Results for this | | MICROSCOPIC WITH | e | 8:21 AM | | procedure are in the | | CULTURE IF INDICATED | | PDT | | results section. | + +--------+ + + + | LIPID PANEL | Routin | 01/02/2018 | | Results for this | | | e | 8:21 AM | | procedure are in the | | | | PDT | | results section. | + +--------+ + + + | HEPATITIS C RNA, | Routin | 01/02/2018 | | Results for this | | QUANT, NAAT | e | 8:21 AM | | procedure are in the | | | | PDT | | results section. | + +--------+ + + + | CBC WITH | Routin | 01/02/2018 | | Results for this | | DIFFERENTIAL | e | 8:21 AM | | procedure are in the | | | | PDT | | results section. | + +--------+ + + + | COMPREHENSIVE | Routin | 01/02/2018 | | Results for this | | METABOLIC PANEL | e | 8:21 AM | | procedure are in the | | | | PDT | | results section. | + +--------+ + + + documented in this encounter Results LABS - EXTERNAL SCAN (01/14/2018 12:00 AM PDT) + + + | Narrative | Performed At | + + + | Ordered by an | | | unspecified provider. | | + + + LABS - EXTERNAL SCAN (01/11/2018 12:00 AM PDT) + + + | Narrative | Performed At | + + + | Ordered by an | | | unspecified provider. | | + + + Hepatitis C RNA, Quant, NAAT (01/02/2018 8:21 AM PDT) + + + + + + | Component | Value | Ref Range | Performed | Pathologist | | | | | At | Signature | + + + + + + | HCV Quant | NOT DETECTED | not detected | REFERENCE | | | | | | LAB | | | | | | [facility] | | + + + + + + | HCV-LOG 10 | NOT DETECTEDComment: A | not detected | REFERENCE | | | | minimum viral load of | | LAB | | | | 1000 IU/mL is required | | [facility] | | | | for reflex to HCV | | | | | | Genotype testing. | | | | | | Insufficient viral loads | | | | | | may not be able to | | | | | | provide a genotype. | | | | | | NOT DETECTED - The | | | | | | result is less than the | | | | | | limit of detection. This | | | | | | does not rule out the | | | | | | presence of PCR | | | | | | inhibitors in the | | | | | | patient sample or | | | | | | hepatitis C virus | | | | | | concentrations below the | | | | | | level of detection of | | | | | | the assay. Care should | | | | | | be taken when | | | | | | interpreting any single | | | | | | viral load | | | | | | determination. NOT | | | | | | QUANTIFIED - The assay | | | | | | detected the presence of | | | | | | the virus but was | | | | | | unable to accurately | | | | | | quantify the number of | | | | | | copies. This would | | | | | | indicate a result less | | | | | | than 1.0 log IU/mL (10 | | | | | | IU/mL). HCV PCR | | | | | | Quantitation is a | | | | | | real-time collar stay fuser tender | | | | | | mediated amplification | | | | | | (TMA) test used for both | | | | | | the detection and | | | | | | quantitation of | | | | | | Hepatitis C (HCV) RNA | | | | | | genotypes 1 to 6 in | | | | | | human EDTA plasma or | | | | | | serum of HCV-infected | | | | | | individuals using | | | | | | Hologic Cl[place]enin (Aptima) | | | | | | System. The test is | | | | | | intended for use as an | | | | | | aid in the diagnosis of | | | | | | HCV infection in the | | | | | | following populations: | | | | | | individuals with | | | | | | antibody evidence of HCV | | | | | | infection with evidence | | | | | | of liver disease, | | | | | | individuals suspected to | | | | | | be actively infected | | | | | | with HCV antibody | | | | | | evidence, and | | | | | | individuals at risk for | | | | | | HCV infection with | | | | | | antibodies to HCV. | | | | | | Detection of HCV RNA | | | | | | indicates that the virus | | | | | | is replicating and | | | | | | therefore is evidence of | | | | | | active infection. | | | | | | NOTICE: Guidance for | | | | | | hepatitis C treatment is | | | | | | changing constantly | | | | | | with the sikh of new | | | | | | therapies and other | | | | | | developments. We urge | | | | | | you to review this | | | | | | guidance on this website | | | | | | | | | | | | (www.hcvguidelines.org | | | | | | ) for the latest | | | | | | recommendations. | | | | | | Analytical Measurement | | | | | | Range for HCV RNA QUANT | | | | | | by PCR is 1.0 log IU/mL | | | | | | (10 IU/mL) to 8.0 log | | | | | | IU/mL (100,000,000 | | | | | | IU/mL). A minimum viral | | | | | | load of 1000 IU/mL is | | | | | | required for the reflex | | | | | | to HCV Genotype testing. | | | | | | Insufficient viral | | | | | | loads may not be able to | | | | | | provide a Genotype. | | | | + + + + + + + + | Specimen | + + | | + + + + + | Narrative | Performed At | + + + | Testing Performed at: [facility] CLIA: [id number] - 8677 | REFERENCE LAB | | [place] [id number] | [facility] | + + + + + + + + | Performing | Address | City/State/Zipcode | Phone Number | | Organization | | | | + + + + + | REFERENCE LAB | [address] | [place] | [phone] | | [place] [facility] [place] | | [address] | | + + + + + | REFERENCE LAB | [address] | [place] | [phone] | | [facility] | | [address] | | + + + + + Thyroid Stimulating Hormone 3rd Gen (01/02/2018 8:21 AM PDT) + + + + + + | Component | Value | Ref Range | Performed | Pathologist | | | | | At | Signature | + + + + + + | TSH | 2.12Comment: Biotin in | 0.270 - 4.20 | [...] + | Testing Performed at: [facility] CLIA: [id number] - [address] | REFERENCE LAB | | [place] [id number] | [facility] | + + + + + + + + | Performing | Address | City/State/Zipcode | Phone Number | | Organization | | | | + + + + + | REFERENCE LAB | [address] | [place] | [phone] | | [facility] | | [address] | | + + + + + | REFERENCE LAB | [address] | [place] | [phone] | | [facility] | | [address] | | + + + + + Comprehensive Metabolic Panel (01/02/2018 8:21 AM PDT) + + + + + + | Component | Value | Ref Range | Performed | Pathologist | | | | | At | Signature | + + + + + + | Sodium | 140 | 132 - 143 | REFERENCE | | | | | | LAB | | | | | | [facility] | | + + + + + + | Potassium | 4.7 | 3.6 - 5.1 | REFERENCE | | | | | | LAB | | | | | | [facility] | | + + + + + + | Chloride | 104 | 95 - 112 | REFERENCE | | | | | | LAB | | | | | | [facility] | | + + + + + + | Carbon | 21 | 19 - 31 | REFERENCE | | | dioxide | | | LAB | | | | | | [facility] | | + + + + + + | Anion Gap | 19.7 | 7 - 21 | REFERENCE | | | | | | LAB | | | | | | [facility] | | + + + + + + | Glucose | 86 | 70 - 100 | REFERENCE | | | | | | LAB | | | | | | [facility] | | + + + + + + | BUN | 22 | 6 - 23 | REFERENCE | | | | | | LAB | | | | | | [facility] | | + + + + + + | Creatinine | 0.78 | 0.70 - 1.33 | REFERENCE | | | | | | LAB | | | | | | [facility] | | + + + + + + | GFR | 77 | | REFERENCE | | | ESTIMATE | | | LAB | | | (REF) | | | [facility] | | + + + + + + | BUN/Creatin | 28.2 | 6.0 - 28.6 | REFERENCE | | | ine Ratio | | | LAB | | | | | | [facility] | | + + + + + + | Calcium | 9.6 | 8.5 - 10.3 | REFERENCE | | | | | | LAB | | | | | | [facility] | | + + + + + + | AST (SGOT) | 18 | 13 - 39 | REFERENCE | | | (REF) | | | LAB | | | | | | [facility] | | + + + + + + | ALT (SGPT) | 18 | 7 - 52 | REFERENCE | | | (REF) | | | LAB | | | | | | [facility] | | + + + + + + | ALK PHOS | 47 | 31 - 130 | REFERENCE | | | | | | LAB | | | | | | [facility] | | + + + + + + | BILIRUBIN, | 0.3 | 0.0 - 1.2 | REFERENCE | [...] Testing Performed at: [facility] CLIA: [id number] - [address] | REFERENCE LAB | | [place] [id number] | [facility] | + + + + + + + + | Performing | Address | City/State/Zipcode | Phone Number | | Organization | | | | + + + + + | REFERENCE LAB | [address] | [place] | [phone] | | [place] | | [address] | | + + + + + | REFERENCE LAB | [address] | [place] | [phone] | | [facility] | | [address] | | + + + + + Lipid Panel (01/02/2018 8:21 AM PDT) + +-------+ + + + | Component | Value | Ref Range | Performed | Pathologist | | | | | At | Signature | + +-------+ + + + | Cholesterol | 171 | OPT: <200 | REFERENCE | | | | | | LAB | | | | | | [facility] | | + +-------+ + + + | Triglycerid | 87 | 30 - 150 | REFERENCE | | | es | | | LAB | | | | | | [facility] | | + +-------+ + + + | HDL | 59.7 | OPT: >40 | REFERENCE | | | Cholesterol | | | LAB | | | | | | [facility] | | + +-------+ + + + | LDL | 94 | OPT: <100 | REFERENCE | | | Cholesterol | | | LAB | | | | | | [facility] | | + +-------+ + + + | Cholesterol | 17 | 4 - 40 | REFERENCE | | | in VLDL | | | LAB | | | | | | [facility] | | + +-------+ + + + | Chol/HDL | 2.9 | OPT: <4.44 | REFERENCE | | | Ratio | | | LAB | | | | | | [facility] | | + +-------+ + + + | Non-HDL | 111 | OPT: <130 | REFERENCE | | | Cholesterol | | | LAB | | | | | | [facility] | | + +-------+ + + + + + | Specimen | + + | | + + + + + | Narrative | Performed At | + + + | Testing Performed at: [facility] CLIA: [id number] - [address] | REFERENCE LAB | | [place] [address] | [facility] | + + + + + + + + | Performing | Address | City/State/Zipcode | Phone Number | | Organization | | | | + + + + + | REFERENCE LAB | [address] | [place] | [phone] | | [facility] | | [address] | | + + + + + | REFERENCE LAB | [address] | [place] | [phone] | | [facility] | | [address] | | + + + + + Urinalysis with Microscopic with Culture if Indicated (01/02/2018 8:21 AM PDT) + + + + + [...] + + + + | Specific | 1.016 | 1.005 - 1.030 | REFERENCE | | | [place] | | | LAB | | | | | | [facility] | | + + + + + + | pH, | 6 | 5 - 9 | [...] + + + + | Bacteria, | NEGATIVE | negative | REFERENCE | | | UA | | | LAB | | | | | | [facility] | | + + + + + + + + | Specimen | + + | | + + + + + | Narrative | Performed At | + + + | Testing Performed at: [facility] CLIA: [id number] - [address]131 | REFERENCE LAB | | [place] [address] | [facility] | + + + + + + + + | Performing | Address | City/State/Zipcode | Phone Number | | Organization | | | | + + + + + | REFERENCE LAB | [address] | [place] | [phone] | | [facility] | | [address] | | + + + + + | REFERENCE LAB | [address] | [place] | [phone] | | [facility] | | [address] | | + + + + + CBC with Differential (01/02/2018 8:21 AM PDT) + + + + + + | Component | Value | Ref Range | Performed | Pathologist | | | | | At | Signature | + + + + + + | WBC | 5.1 | 4.5 - 11.0 | REFERENCE | | | | | | LAB | | | | | | [facility] | | + + + + + + | Red Blood | 4.42 | 3.8 - 5.1 | REFERENCE | | | Cells | | | LAB | | | | | | [facility] | | + + + + + + | Hemoglobin | 14.4 | 12.0 - 16.0 | REFERENCE | | | | | | LAB | | | | | | [facility] | | + + + + + + | Hct | 42.8 | 35 - 45 | REFERENCE | | | | | | LAB | | | | | | [facility] | | + + + + + + | MCV | 96.8 | 81 - 99 | REFERENCE | | | | | | LAB | | | | | | [facility] | | + + + + + + | RDW | 12.5 | 10.5 - 15.0 | REFERENCE | | | | | | LAB | | | | | | [facility] | | + + + + + + | MCH | 33 | 27 - 33 | REFERENCE | | | | | | LAB | | | | | | [facility] | | + + + + + + | MCHC | 34 | 30 - 36 | REFERENCE | | | | | | LAB | | | | | | [facility] | | + + + + + + | Platelet | 235 | 140 - 440 | REFERENCE | | | Count | | | LAB | | | | | | [facility] | | + + + + + + | % | 73.1 | 39 - 80 | REFERENCE | | | Neutrophils | | | LAB | | | | | | [facility] | | + + + + + + | % | 13.1 (L) | 24 - 44 | REFERENCE | | | Lymphocytes | | | LAB | | | | | | [facility] | | + + + + + + | Monocyte % | 10.6 | 0 - 12 | REFERENCE | | | | | | LAB | | | | | | [facility] | | + + + + + + | Eosinophils | 2.8 | 0 - 6 | REFERENCE | | | % | | | LAB | | | | | | [facility] | | + + + + + + | Basophils % | 0.4 | 0 - 2 | REFERENCE | | | | | | LAB | | | | | | [facility] | | + + + + + + + + | Specimen | + + | | + + + + + | Narrative | Performed At | + + + | Testing Performed at: [facility] CLIA: [id number] - [address] | REFERENCE LAB | | [place] [address] | [facility] | + + + + + + + + | Performing | Address | City/State/Zipcode | Phone Number | | Organization | | | | + + + + + | REFERENCE LAB | [address] | [place], [place] | [phone] | | [facility] | | [address] | | + + + + + | REFERENCE LAB | [address] | [place], [place] | [phone] | | [facility] | | [address] | | + + + + + documented in this encounter Visit Diagnoses + + | Diagnosis | + + | Hypertension, unspecified type - Primary | + + | Post-traumatic osteoarthritis of left ankle | + + | Boil, face Carbuncle and furuncle of face | + + | Need for hepatitis C screening test Special screening examination for other specified | | viral diseases | + + | Sleep apnea, unspecified type | + + | Need for Tdap vaccination Need for prophylactic vaccination with combined | | [id number] (DTP) vaccine | + + | Need for influenza vaccination Need for prophylactic vaccination and inoculation | | against influenza | + + documented in this encounter
--- OUTSIDE RECORDS SUMMARY | ~2019-12-12 | XMS | Encounter Summary ---
Demographics + + + | Address | [address] | | | [place] [address] | + + + | Home Phone | | + + + | Preferred Language | Unknown | + + + | Marital Status | | + + + | Anabaptism Affiliation | 1038 | + + + | Race | White | + + + | Ethnic Group | Not or | + + + Author + + + | Author | [facility] | | | and [place] | + + + | Organization | [facility] | | | [...] [place], | | | | | [place] [address] | | + + + + + Care Team Providers + +------+ + | Care Sales Merchandiser Name | Role | Phone | + +------+ + | Alex Alvarenga DO | PCP | | + +------+ + Reason for Visit + +--------+ + | Reason | Onset | Comments | | | Date | | + +--------+ + | Medication Refill | 02/17/ | | | | 2018 | | + +--------+ + Encounter Details +--------+--------+ + + + | Date | Type | Department | Care Team | Description | +--------+--------+ + + + | 02/17/ | Refill | [facility] | Alex Alvarenga | Medication Refill | | 2018 | | [facility] | E, DO [address] | | | | | MED[facility] CL[facility] [address] | [place], [place] | | | | | [address] [place], | [address] | | | | | [place] [address] | [phone] | | | | | [phone] | | | +--------+--------+ + + + [...] this encounter Miscellaneous Notes Telephone Encounter - Oma Bennett LPN - 02/17/2019 12:57 PM PDTLast seen 08-09-18 ctronically signed by Oma Bennett LPN at 02/17/2019 12:57 PM PDTdocumented in this en counter Plan of Treatment +--------+---------+ + + + | Date | Type | Specialty | Care Team | Description | +--------+---------+ + + + | 12/21/ | Office | Primary Care | Alex Alvarenga | | | 2019 | Visit | | DO [address] [address] | | | | | | [place] | | | | | | [address] | | | | | | [phone] | | | | | | | | +--------+---------+ + + + documented as of this encounter Visit Diagnoses Not on filedocumented in this encounter"
--- OUTSIDE RECORDS SUMMARY | ~2019-12-12 | XMS | Encounter Summary ---
Demographics + + + | Address | [address] | | | [place] [address] | + + + | Home Phone [...] Author | [facility] | | | and [place] | + + + | Organization | [facility] | | | and [place] | + + + | Address | Unknown | + + + | Phone | Unavailable | + + + Support + + + + + | Name | Relationship | Address | Phone | + + + + + | Eric Guerrier | ECON | [address] [place], | | | | | [place] [address] | | + + + + + Care Team Providers + +------+ + | Care Operations Support Analyst Name | Role | Phone | + +------+ + | Alex Alvarenga DO | PCP | | + +------+ + Reason for Visit +--------+--------+ + | Reason | Onset | Comments | | | Date | | +--------+--------+ + | Other | 12/10/ | talk about HBP & wearing a mask | | | 2019 | | +--------+--------+ + Encounter Details +--------+ + + + + | Date | Type | Department | Care Team | Description | +--------+ + + + + | 12/10/ | Telephone | [facility] | Alex Alvarenga | Other (talk about | | 2019 | | [facility] | E, DO [address] | HBP & wearing a | | | | MEDICAL CLIN[facility] [address] | [place], [place] | mask) | | | | [address] [facility], | [address] | | | | | [place] [address] | [phone] | | | | | [phone] | | | +--------+ + + + [...] Telephone Encounter - Anastasiia Woodall CMA - 12/11/2019 2:28 PM PDTPer Brian Cortez I quiñones d pt and let her know that he would up her BP medication to 50mg per day. Pt reported she winn s noticed headache and heath BP for at least 2 week. Pt is agreeable with increase in medica tion and will keep a BP log and FU with dr Alvarenga. Anastasiia Woodall CMA elephone Encounter - DalalCésar corneliuscie Ariana - 12/11/2019 1:03 PM PDTPatient is requesting a call back today regardin g her blood pressure running high. This morning her BP was 189/93 and now at 1:00 pm her BP was 169/90 and states she is taking her BP medication every night. She is supposed to return to work next week and she has a shield she wears but her work kamala d her that ok to wear face resendiz but was informed she needs to wear the mask with the shie ld. She wonders if she could get a doctors note stating she should just wear the shield only . She does have a bad headache today and thinks it's from HBP and wearing the mask. She can breath with the shield but not so well with mask. Please call back and advise Peri Dalal documented in this enco unter Plan of Treatment +--------+---------+ + + + | Date | Type | Specialty | Care Team | Description | +--------+---------+ + + + | 12/21/ | Office | Primary Care | Alex Alvarenga | | | 2019 | Visit | | [place]ac, [address] | | | | | | [place] | | | | | | [address] | | | | | | [phone] | | | | | | | | +--------+---------+ + + + documented as of this encounter Visit Diagnoses + + | Diagnosis | + + | Hypertension, unspecified type - Primary | + + documented in this encounter"
--- OUTSIDE RECORDS SUMMARY | ~2019-12-12 | XMS | Encounter Summary ---
Demographics + + + | Address | [address] | | | [place] [address] | + + + | Home Phone | | + + + | Preferred Language | Unknown | + + + | Marital Status | | + + + | Mandaen Affiliation | 1038 | + + + | Race | White | + + + | Ethnic Group | Not or | + + + Author + + + | Author | [facility] | | | and [place] | + + + | Organization | [facility] | | [...] [place], | | | | | [place] [address] | | + + + + + Care Team Providers + +------+ + | Care Mat Cutter Name | Role | Phone | + +------+ + | Alex Alvarenga DO | PCP | | + +------+ + Reason for Visit + +--------+ + | Reason | Onset | Comments | | | Date | | + +--------+ + | Medication Related | 12/06/ | | | | 2018 | | + +--------+ + Encounter Details +--------+ + + + + | Date | Type | Department | Care Team | Description | +--------+ + + + + | 12/06/ | Telephone | [facility] | Alex Alvarenga | Medication Related | | 2019 | | [facility] | E, DO [address] | | | | | MEDICAL CLINIC [address] | [place], [place] | | | | | [address] [place], | [address] | | | | | [place] [address] | [phone] | | | | | [phone] | | | +--------+ + + + [...] this encounter Miscellaneous Notes Telephone Encounter - Kiran Antonio RN - 12/06/2018 5:48 PM PDTPatient notified Kiran Antonio RN ddendum Note - Suma Berman DNP - 12/06/2018 5:30 PM PDT Addended by: SUMA CORTEZ on: 12/06/2018 17:30 Modules accepted: Orders elephone Encounter - Suma Cortez DNP - 12/06/2018 5:30 PM PDT1 time dose of Diflucan has been ordered for the patient to her pharmacy. elephone Encounter - Kiran Antonio RN - 12/06/2018 4:32 PM PDTPt notified of l ab results and prescription. She also requests a prescription for Diflucan, saying, "I alwa ys get a yeast infection when I take antibiotics." Kiran Antonio RN elephone Encounter - Kiran Antonio RN - 12/06/2018 4:32 PM PDT----- Message from Suma Cortez DNP sent at 12/06/2018 16:29 PDT ----- UTI has been confirmed. I will send in a prescription for Macrobid for the patient to her pharmacy. documented in this encounter Plan of Treatment [...] [place] | | | | | | [address] | | | | | | [phone] | | | | | | | | +--------+---------+ + + + documented as of this encounter Visit Diagnoses Not on filedocumented in this encounter
--- OUTSIDE RECORDS SUMMARY | ~2019-12-12 | XMS | Encounter Summary ---
Demographics + + + | Address | [address] | | | [place] [address] | + + + | Home Phone | | + + + | Preferred Language | Unknown | + + + | Marital Status | | + + + | Zoroastrian Affiliation | 1038 | + + + | Race | White | + + + | Ethnic Group | Not or | + + + Author + + + | Author | [facility] | | | and [place] | + + + | Organization | [facility] | | | and [place] | + + + | Address | Unknown | + + + | Phone | Unavailable | + + + Support + + + + + | Name | Relationship | Address | Phone | + + + + + | Eric Guerrier | ECON | [address] [place], | | | | | [place] [address] | | + + + + + Care Team Providers + +------+ + | Care Child Development Director Name | Role | Phone | + +------+ + PCP | Unavailable | + +------+ + Encounter Details +--------+ + + + + | Date | Type | Department | Care Team | Description | +--------+ + + + + | 09/11/ | [facility] | [facility] | | | | 2006 | Encounter | MED CTR XRAY [address] | | | | | | [place] | | | | | | [place] [address] | | | | | | [phone] | | | +--------+ + + + [...] [place] | | | | | | [address] | | | | | | [phone] | | | | | | | | +--------+---------+ + + + documented as of this encounter Visit Diagnoses Not on filedocumented in this encounter"
--- OUTSIDE RECORDS SUMMARY | ~2019-12-12 | XMS | Encounter Summary ---
Demographics + + + | Address | [address] | | | [place] [address] | + + + | Home Phone | | + + + | Preferred Language | Unknown | + + + | Marital Status | | + + + | Nondenominational Affiliation | 1038 | + + + | Race | White | + + + | Ethnic Group | Not or | + + + Author + + + | Author | [facility] | | | and [place] | + + + | Organization | [facility] | | | [...] [place], | | | | | [place] [address] | | + + + + + Care Team Providers + +------+ + | Care Weaver Tire Cord Name | Role | Phone | + +------+ + | Alex Alvarenga DO | PCP | | + +------+ + Reason for Visit + +--------+ + | Reason | Onset | Comments | | | Date | | + +--------+ + | Lab Order | 12/06/ | | | | 2019 | | [...] | | | MEDICAL CLIN[facility] [address] | [place], [place] | | | | | [address] [place], | [address] | | | | | [place] [address] | [phone] | | | | | [phone] | | | +--------+ + + + [...] Encounter - Kiran Antonio RN - 12/06/2018 10:09 AM PDTLab order faxed. Kiran Antonio RN elephone Encounter - Sera Davenport - 12/06/2018 8:42 AM [facility] [place] requesting a call back from medical staff in regards to lab orders. Yvette Alvarenga is out Please call [phone] Thanks Adri documented in this en counter Plan of Treatment +--------+---------+ + + + | Date | Type | Specialty | Care Team | Description | +--------+---------+ + + + | 12/21/ | Office | Primary Care | Alex Alvarenga | | | 2019 | Visit | | E, DO [address] | | | | | | [place] | | | | | | [address] | | | | | | [phone] | | | | | | | | +--------+---------+ + + + documented as of this encounter Visit Diagnoses Not on filedocumented in this encounter"
--- OUTSIDE RECORDS SUMMARY | ~2019-12-12 | XMS | Encounter Summary ---
Demographics + + + | Address | [address] | | | [place] [address] | + + + | Home Phone | | + + + | Preferred Language | Unknown | + + + | Marital Status | | + + + | Methodist Affiliation | 1038 | + + + | Race | White | + + + | Ethnic Group | Not or | + + + Author + + + | Author | [facility] | | | and [place] | + + + | Organization | [facility] | | | [...] [place], | | | | | [place] [address] | | + + + + + Care Team Providers + +------+ + | Care Technology Education Teacher Name | Role | Phone | + +------+ + | Alex Alvarenga DO | PCP | | + +------+ + Reason for Visit + +--------+ + | Reason | Onset | Comments | | | Date | | + +--------+ + | Abnormal Lab | 08/07/ | | | | 2019 | | + +--------+ + Encounter Details +--------+ + + + + | Date | Type | Department | Care Team | Description | +--------+ + + + + | 08/07/ | Telephone | [facility] | Irma Peng, | Abnormal Lab | | 2019 | | [facility] | LUMBER HANDLER [address] | | | | | [facility] [address] | [place] [address] | | | | | [address] [place], | [phone] | | | | | [place] [address] | | | | | | [phone] | | | +--------+ + + + [...] this encounter Miscellaneous Notes Telephone Encounter - Irma Peng FNP - 08/07/2018 6:19 PM PDTPlease call and advise pt that UA indicates UTI is starting- start Bactrim x 10days as ordered Electronically sign ed by IBIS Kilpatrick at 08/07/2018 6:20 PM PDTdocumented in this encounter Plan of Treatment +--------+---------+ + + + | Date | Type | Specialty | Care Team | Description | +--------+---------+ + + + | 12/21/ | Office | Primary Care | Alex Alvarenga | | | 2019 | Visit | | DO [facility] [address] | | | | | | [place] | | | | | | [address] | | | | | | [phone] | | | | | | | | +--------+---------+ + + + documented as of this encounter Visit Diagnoses Not on filedocumented in this encounter"
--- OUTSIDE RECORDS SUMMARY | ~2019-12-12 | XMS | Encounter Summary ---
Demographics + + + | Address | [address] | | | [place] [address] | + + + | Home Phone | | + + + | Preferred Language | Unknown | + + + | Marital Status | | + + + | Hoahaoism Affiliation | 1038 | + + + | Race | White | + + + | Ethnic Group | Not or | + + + Author + + + | Author | [facility] | | | and [place] | + + + | Organization | [facility] | | | [...] [place], | | | | | [place] [address] | | + + + + + Care Team Providers + +------+ + | Care Internet Marketing Consultant Name | Role | Phone | + +------+ + | Alex Alvarenga DO | PCP | | + +------+ + Reason for Visit + +--------+ + | Reason | Onset | Comments | | | Date | | + +--------+ + | Imaging Only | 10/21/ | | | | 2019 | | + +--------+ + Encounter Details +--------+ + + + + | Date | Type | Department | Care Team | Description | +--------+ + + + + | 10/21/ | Telephone | [facility] | Alex Alvarenga | Imaging Only | | 2018 | | [facility] | E, DO [address] | | | | | MEDICAL CLIN[address] | [place], [place] | | | | | [address] [place], | [address] | | | | | [place] [address] | [phone] | | | | | [phone] | | | +--------+ + + + [...] Notes Telephone Encounter - Kiara Moe CC BRINELL TESTER - 10/22/2018 8:54 AM PDTLeft thumb pain x 1 month from fall. Ordered/ elepho ne Encounter - JenniferStephmarino Lane - 10/21/2018 3:49 PM PDTPt returned call. Georgi Rodriguez elephone Encounter - Kiara Ambrose CC CMA - 10/21/2018 2:44 PM PDTI called patient at 1444. No answer, no ID on vm, left msg requesting return call to find out laterality, location, etc. ALYSSIA Mccauley CMA elephone Encoun april - Alex Alvarenga DO - 10/21/2018 11:10 AM PDTPlease screen the call and find out la terality, location of pain, and order xray based on that at [facility] please. Electronically dori d by Alex Alvarenga DO at 10/21/2018 11:10 AM PDTTelephone Encounter - Peña Ngo - 10/21/2018 9:40 AM PDTPt states that she has already discussed her fall at the beginning of August and had a concussion. Pt states that when she fell she hurt her thumb and she is sti ll having issues. Pt would like to know if an x-ray could be ordered and sent to [facility] . Pt states that it has not gotten any better and is increasingly difficult to grasp and hol d onto objects. Please call pt and let her know if/when imaging order is sent. Thanks, Peña Ngo P DTdocumented in this [...] [place] | | | | | | [address] | | | | | | [phone] | | | | | | | | +--------+---------+ + + + + +---------+--------+ + + | Name | Type | Priori | Associated Diagnoses | Order Schedule | | | | ty | | | + +---------+--------+ + + | XR Hand Left 3 + Vw | Imaging | Routin | Injury of left | Expected: | | | | e | jose delatorre | 10/22/2018, Expires: | | | | | encounter | 11/22/2018 | + +---------+--------+ + + documented as of this encounter Visit Diagnoses + + | Diagnosis | + + | Injury of left thumb, initial encounter - Primary | + + documented in this encounter"
--- OUTSIDE RECORDS SUMMARY | ~2019-12-12 | XMS | Encounter Summary ---
Demographics + + + | Address | [address] | | | [place] [address] | + + + | Home Phone | | + + + | Preferred Language | Unknown | + + + | Marital Status | | + + + | Jew Affiliation | 1038 | + + + | Race | White | + + + | Ethnic Group | Not or | + + + Author + + + | Author | [facility] | | | and [place] [...] [place], | | | | | [place] [address] | | + + + + + Care Team Providers + +------+ + | Care Geospatial Engineer Name | Role | Phone | + +------+ + | Alex Alvarenga DO | PCP | | + +------+ + Reason for Visit + +--------+ + | Reason | Onset | Comments | | | Date | | + +--------+ + | Lab Results | 01/03/ | | | | 2018 | | + +--------+ + Encounter Details +--------+ + + + + | Date | Type | Department | Care Team | Description | +--------+ + + + + | 01/03/ | Telephone | [facility] | Alex Alvarenga | Lab Results | | 2018 | | [facility] | E, DO [address] | | | | | MEDICAL CLIN[facility] [address] | [place], [place] | | | | | [address] [place], | [address] | | | | | [place] [address] | [phone] | | | | | [phone] | | | +--------+ + + + [...] Encounter - Zoila Ruff CC CMA - 01/03/2018 8:47 AM PDTLeft detailed message that all labs look good. ALYSSIA Larson CMA elephone Zoila Dacosta CC CMA - 01/03/2018 8:47 AM PDT----- Message from Alex Alvarenga DO sent at 01/02/2018 14:48 PDT ----- Let pt know labs look good. 8: 47 AM PDTdocumented in this encounter Plan of Treatment +--------+---------+ + + + | Date | Type | Specialty | Care Team | Description | +--------+---------+ + + + | 12/21/ | Office | Primary Care | Alex Alvarenga | | | 2019 | Visit | | DO [facility] | | | | | | [place] | | | | | | [address] | | | | | | [phone] | | | | | | | | +--------+---------+ + + + documented as of this encounter Visit Diagnoses Not on filedocumented in this encounter"
--- OUTSIDE RECORDS SUMMARY | ~2019-12-12 | XMS | Encounter Summary ---
Demographics + + + | Address | [address] | | | [place] [address] | + + + | Home Phone [...] | [facility] | | | and [...] [place], | | | | | [place] [address] | | + + + + + Care Team Providers + +------+ + | Care Roughing Mill Operator Name | Role | Phone [...] | | | MEDICAL CLIN[facility] [address] | [place], [place] | | | | | [address] [place], | [address] | | | | | [place] [address] | [phone] | | | | | [phone] | | | +--------+ + + + [...] Notes Telephone Encounter - Zoila Ruff CC [facility] - 01/03/2018 5:13 PM PDTLeft detailed message earlier today. ALYSSIA Larson [facility] elephone Zoila Dacosta CC [facility] - 01/03/2018 5:12 PM PDT----- Message from Alex Alvarenga DO sent at 01/03/2018 13:57 PDT ----- All labs look good. Tdocumented in this encounter Plan of Treatment +--------+---------+ + + + | Date | Type | Specialty | Care Team | Description | +--------+---------+ + + + | 12/21/ | Office | Primary Care | Alex Alvarenga | | | 2019 | Visit | | DO [facility] [address] | | | | | | [place] | | | | | | [address] | | | | | | [phone] | | | | | | | | +--------+---------+ + + + documented as of this encounter Visit Diagnoses Not on filedocumented in this encounter"
--- OUTSIDE RECORDS SUMMARY | ~2019-12-12 | XMS | Encounter Summary ---
Demographics + + + | Address | [address] | | | [place] [address] | + + + | Home Phone | | + + + | Preferred Language | Unknown | + + + | Marital Status | | + + + | Sabianism Affiliation | 1038 | + + + | Race | White | + + + | Ethnic Group | Not or | + + + Author + + + | Author | [facility] | | | and [place] | + + + | Organization | [facility] | | | [...] [place], | | | | | [place] [address] | | + + + + + Care Team Providers + +------+ + | Care Syrup Shed Supervisor Name | Role | Phone | + +------+ + | Alex Alvarenga DO | PCP | | + +------+ + Reason for Visit + +--------+ + | Reason | Onset | Comments | | | Date | | + +--------+ + | Advice Only | 03/25/ | Pt requesting a call back from Dr. Colette CHILD prior to | | | 2019 | her oral surgeon appt today at 10:00 am | + +--------+ + Encounter Details +--------+ + + + + | Date | Type | Department | Care Team | Description | +--------+ + + + + | 03/25/ | Telephone | [facility] | Alex Alvarenga | Advice Only (Pt | | 2019 | | [facility] | E, DO [address] | requesting a call | | | | MEDICAL CL[facility] [address] | [place] | back from | | | | [place], | [address] | Colette [place]ILD prior | | | | [place] [address] | [phone] | to her oral surgeon | | | | [phone] | | appt today at 10:00 | | | | | | am) | +--------+ + + + + Social [...] Encounter - Zoila Ruff CC CMA - 03/25/2019 1:38 PM PSTPatient informed. Apr ALYSSIA Villavicencio CMA elephone Encounte r - Alex Alvarenga DO - 03/25/2019 12:35 PM PSTI cannot comment, and sorry that it is t oo late call call. I would defer to oral surgeon. elephone Encounter - Kiara Moe CC CMA - 03/25/2019 9:33 AM PSTDo you h ave an opinion on this? ALYSSIA Mccauley CMA elephone Encoun april - Peri Dalal - 03/25/2019 8:27 AM PSTPatient is requesting a call back from Dr. Robyn wesley prior to her Oral surgeon appt today at 10:00 in [facility]. Wants to know his opinio n about a root canal versus pulling a tooth as she doesn't understand what she's being told. Peri Dalal [facility] Plan of Treatment +--------+---------+ + + + | Date | Type | Specialty | Care Team | Description | +--------+---------+ + + + | 12/21/ | Office | Primary Care | Alex Alvarenga | | | 2020 | Visit | | DO [address] | | | | | | [place] | | | | | | [address] | | | | | | [phone] | | | | | | | | +--------+---------+ + + + documented as of this encounter Visit Diagnoses Not on filedocumented in this encounter"
--- OUTSIDE RECORDS SUMMARY | ~2019-12-12 | XMS | Encounter Summary ---
Demographics + + + | Address | [address] | | | [place] [address] | + + + | Home Phone | | + + + | Preferred Language | Unknown | + + + | Marital Status | | + + + | Tenriism Affiliation | 1038 | + + + | Race | White | + + + | Ethnic Group | Not or | + + + Author + + + | Author | [facility] | | | and [place] | + + + | Organization | [facility] | | | and [place] | + + + | Address | Unknown | + + + | Phone | Unavailable | + + + Support + + + + + | Name | Relationship | Address | Phone | + + + + + | Eric Guerrier | ECON | [address], | | | | | [place] [address] | | + + + + + Care Team Providers + +------+ + | Care Laboratory Equipment Installer Name | Role | Phone | + [...] + + | Closed | Specialty | Orthopedic | Diagnoses | [facility] | | | Services | Surgery | Injury of | Regional | Orthopedic | | | Required | | left thumb, | Primary Care | [address] | | | | | initial | [address] | [place] | | | | | encounter | [place], | [place], [place] | | | | | Procedures | [place] | [address] | | | | | [place] | [address] | Phone: | | | | | | Phone: | [phone] | | | | | | [phone] | Fax: | | | | | | Fax: | [phone] | | | | | | [phone] | | +--------+ + + + + + Reason for Visit + +--------+ + | Reason | Onset | Comments | | | Date | | + +--------+ + | Results, Imaging | 10/25/ | | | | 2018 | | + +--------+ + Encounter Details +--------+ + + + + | Date | Type | Department | Care Team | Description | +--------+ + + + + | 10/25/ | Telephone | [place] [facility] | Zoila Ruff, CC | Results, Imaging | | 2019 | | [facility] | [facility] | | | | | [facility] [address] | | | | | | [address] [facility] [place], | | | | | | [place] [address] | | | | | | [phone] | | | +--------+ + + + [...] documented as of this encounter Miscellaneous Notes Addendum Note - Zoila Ruff CC CMA - 10/25/2018 1:15 PM PDT Addended by: Zoila Ruff on: 10/25/2018 13:15 Modules accepted: Orders ddendum Note - Juan Ramon Pulliam - 10/25/2018 1:07 PM PDT Addended by: JUAN RAMON PULLIAM on: 10/25/2018 13:07 Modules accepted: Orders elephone Encounter - Juan Ramon Garvin - 10/25/2018 1:06 PM PDTPlease sign pended referral. Juan Ramon elephone Encounter - Zoila Ruff CC CMA - 10/25/2018 11:31 AM PDTPatient agreeable to plan. Please write referral. ALYSSIA Larson CMA elephone Encounte r - Alex Alvarenga DO - 10/25/2018 10:37 AM PDTPlease make referral to Dr Tori harrison signed by Alex Alvarenga DO at 10/25/2018 10:37 AM PDTTelephone Encounter - Zoila Ruff CC CMA - 10/25/2018 10:20 AM PDTPatient informed normal X-ray of left hand, patie nt reports she can barely lift anything. I advised to give it more time but if this persist s or changes to give us a call. Do you agree, this has been ongoing x2 months? Results sen t to scan. ALYSSIA Larson CMA documented in this encounter Plan of Treatment +--------+---------+ + + + | Date | Type | Specialty | Care Team | Description | +--------+---------+ + + + | 12/21/ | Office | Primary Care | Alex Alvarenga | | | 2019 | Visit | | E, [address] | | | | | | [place], [place] | | | | | | [address] | | | | | | [phone] | | | | | | | | +--------+---------+ + + + + + +--------+ + + | Name | Type | Priori | Associated Diagnoses | Order Schedule | | | | ty | | | + + +--------+ + + | * Roosevelt Lopez CC | Outpatient | Routin | Injury of left | Ordered: 10/25/2018 | | [facility] | Referral | e | juan ramon, initial | | | Referral | | | encounter | | + + +--------+ + + documented as of this encounter Visit Diagnoses + + | Diagnosis | + + | Injury of left thumb, initial encounter - Primary | + + documented in this encounter"
--- OUTSIDE RECORDS SUMMARY | ~2019-12-12 | XMS | Encounter Summary ---
Demographics + + + | Address | [address] | | | [place] [address] | + + + | Home Phone | | + + + | Preferred Language | Unknown | + + + | Marital Status | | + + + | Rastafarian Affiliation | 1038 | + + + | Race | White | + + + | Ethnic Group | Not or | + + + Author + + + | Author | [facility] | | | and [place] | + + + | Organization | [facility] | | | and [place] | + + + | Address | Unknown | + + + | Phone | Unavailable | + + + Support + + + + + | Name | Relationship | Address | Phone | + + + + + | Eric Guerrier | ECON | [address], | | | | | [place] [address] | | + + + + + Care Team Providers + +------+ + | Care Assistant Professor Of Criminal Justice Name | Role | Phone | + +------+ + | Alex Manriquez DO | PCP | | + +------+ + Reason for Visit + +--------+ + | Reason | Onset | Comments | | | Date | | + +--------+ + | Lab Order | 10/13/ | Patient requesting an order for a UA be sent to | | | 2020 | [facility] in [place] | + +--------+ + | Lab Order | 10/13/ | [facility] didn't receive UA order, patient would like | | | 2020 | you to call and give a verbal order | + +--------+ + Encounter Details +--------+ + + + + | Date | Type | Department | Care Team | Description | +--------+ + + + + | 10/13/ | Telephone | [facility] | Alex Manriquez | Lab Order (Patient | | 2020 | | [facility] | E, DO [address] | requesting an order | | | | MEDICAL CLINIC [address] | [place], [place] | for a UA be sent to | | | | [address] [place], | [address] | [facility] in | | | | [place] [address] | [phone] | [place]); Lab | | | | [phone] | | Order (Emely | | | | | | didn't receive UA | | | | | | order, patient would | | | | | | like you to call | | | | | | and give a verbal | | | | | | order) | +--------+ + + + + Social [...] this encounter Miscellaneous Notes Addendum Note - Alex Manriquez DO - 10/14/2019 3:02 PM PDT Addended by: JOSSELINE MANRIQUEZ on: 10/14/2019 03:02 PM Modules accepted: Orders ddendum Note - Zoila Ruff CC [facility] - 10/14/2019 2:56 PM PDT Addended by: ZOILA RUFF on: 10/14/2019 0 2:56 PM Modules accepted: Orders elephone Encoun ter - Zoila Ruff CC [facility] - 10/14/2019 2:53 PM PDTPended, please sign. Patient has been informed. ALYSSIA Larson CMA elephone Alex Diaz DO - 10/14/2019 2:17 PM PDTRefill macrobid as before for 5 days, th en get a clean catch urine for eval. Then we can talk about daily abx. 20 2:18 PM PDTTelephone Encounter - Zoila Ruff CC CMA - 10/14/2019 1:59 PM PDTPatient requesting prophylactic Nitrofurantoin Monohyd Mac 100mg caps. Per pharmacy it was written as 1 cap po TWICE DAILY for 5 days. Please advise. ALYSSIA Larson CMA elephone Peri Jordan - 10/14/2019 1:15 PM PDTPatient is calling back to let Zoila Tamayo know t simon Thomason will be sending her a copy of information about medication Macrodantin that Dr. Manriquez needs. Peri Dalal elephone Encounter - Zoila Horvath CC CMA - 10/14/2019 12:35 PM PDTPatient completed urine test, she will [facility] and report back regarding prophylactic abx.ALYSSIA Larson CMA elephone Peri Jordan - 10/14/2019 10:00 AM PDTPatient states she went to [facility] and t hey didn't get order for a UA test. Patient would like you to call and give a verbal order t o [facility] in [place]? Call if questions Peri Dalal elephone Encounter - Kiara Claros CC CMA - 10/14/2019 8:25 AM PDTPt informed. ALYSSIA Mccauley CMA elephone Encoun Alex Schultz DO - 10/14/2019 8:13 AM PDTUA reflex [facility] [place]. elephone Encounter - Zenia Moe CC CMA - 10/14/2019 8:08 AM PDTI spoke with Tatyana. Patient c/o painful urination, lo w pelvic pain, right side flank pain (mild), dark/ orange urine x 2 weeks. Okay to send orde r or does she need to be seen? Patient is also wondering if she should be on prophylactic abx for frequent UTI's. Please advise. ALYSSIA Mccauley CMA elephone Encoun Peri Lambert - 10/14/2019 7:50 AM PDTPatient feels like she's got a UTI. Can you fax a UA lab order to [facility] in [place] and let patient know when faxed? [facility] Peri Dalal documented in this encou nter Plan of Treatment +--------+---------+ + + + | Date | Type | Specialty | Care Team | Description | +--------+---------+ + + + | 12/21/ | Office | Primary Care | Alex Manriquez | | 2019 | Visit | | E, DO [address] | | | | | | [place], [place] | | | | | | [address] | | | | | | [phone] | | | | | | | | +--------+---------+ + + + + +------+--------+ + + | Name | Type | Priori | Associated Diagnoses | Order Schedule | | | | ty | | | + +------+--------+ + + | Urinalysis with | Lab | Routin | Dysuria Flank | Expected: | | Microscopic with | | e | pain | 10/14/2019, Expires: | | Culture if Indicated | | | | 11/13/2019 | + +------+--------+ + + documented as [...] documented in this encounter Results Culture, Urine (10/14/2019 11:40 AM PDT) + [...] | [facility] | | | | Lactose Chief Of Service , | | | | | | Identification and | | | | | | susceptibility to | | | | | | follow. 10/16/2019 | | | | | | 12:17 PM Lactose | | | | | | Chief Of Service identified as | | | | | [...] 1; | | | | | | [place] | | | | | | [address] Phone: | | | | | | [...] [address] | [place] | [phone] | | [place] | | [address] | | + + + + + Culture, Urine, Reflexive (10/14/2019 11:40 AM PDT) [...] Testing Performed at: [facility] CLIA: [id number] - [address] | REFERENCE LAB | | [place] [address] | [facility] - | | | [place] | + + + + + + + + | Performing | Address | City/State/Zipcode | Phone Number | | Organization | | | | + + + + + | REFERENCE LAB | [address] | [place] | [phone] | | [facility] [place] | | [address] | | + + + + + [...] - 1.030 | REFERENCE | | | [place] | | | LAB | | | [...] Testing Performed at: [facility] CLIA: [id number] - [address] | REFERENCE LAB | | [place] [address] | [facility] - | | | [place] | + + + + + + + + | Performing | Address | City/State/Zipcode | Phone Number | | Organization | | | | + + + + + | REFERENCE LAB | [address] | [place] | [phone] | | [facility] | | [address] | | + + + + + documented in this encounter Visit Diagnoses + + | Diagnosis | + + | Dysuria - Primary | + + | Flank pain Abdominal pain, unspecified site | + + documented in this encounter"
--- OUTSIDE RECORDS SUMMARY | ~2019-12-12 | XMS | Encounter Summary ---
Demographics + + + | Address | [address] | | | [place] [address] | + + + | Home Phone | | + + + | Preferred Language | Unknown | + + + | Marital Status | | + + + | Alevism Affiliation | 1038 | + + + | Race | White | + + + | Ethnic Group | Not or | + + + Author + + + | Author | [facility] | | | and [place] | + + + | Organization | [facility] | | | and [place] | + + + | Address | Unknown | + + + | Phone | Unavailable | + + + Support + + + + + | Name | Relationship | Address | Phone | + + + + + | Eric Guerrier | ECON | [address], | | | | | [place] [address] | | + + + + + Care Team Providers + +------+ + | Care Molder Sweep Name | Role | Phone | + +------+ + | Alex Alvarenga DO | PCP | | + +------+ + Reason for Visit + +--------+ + | Reason | Onset | Comments | | | Date | | + +--------+ + | Lab Order | 08/06/ | | | | 2019 | | + +--------+ + Encounter Details +--------+ + + + + | Date | Type | Department | Care Team | Description | +--------+ + + + + | 08/06/ | Telephone | [facility] | Alex Alvarenga | Lab Order | | 2019 | | [facility] | E, DO [address] | | | | | MEDICAL CLIN[facility] [address] | [place] | | | | | [address] [place], | [address] | | | | | [place] [address] | [phone] | | | | | [phone] | | | +--------+ + + + [...] Encounter - Zoila Ruff CC CMA - 08/06/2018 4:05 PM PDTPatient informed nichole love, faxed to [facility]. ALYSSIA Larson CMA elephone Coopertae Ngo, Peña Sanchez - 08/06/2018 2:35 PM PDTPt states that she thinks she is starting to get a UTI, there is some pain when she urinates, and would like to know if an order for UA c an be sent to [facility] in [place] to be completed tonight. Please call and advise. Thanks, Peña Ngo [...] [place] | | | | | | [address] | | | | | | [phone] | | | | | | | | +--------+---------+ + + + + +------+--------+ + + | Name | Type | Priori | Associated Diagnoses | Order Schedule | | | | ty | | | + +------+--------+ + + | Urinalysis with | Lab | Routin | Pain with | Expected: | | Microscopic with | | e | urination | 08/06/2018, Expires: | | Culture if Indicated | | | | 08/07/2019 | + +------+--------+ + + documented as of this encounter Procedures + +--------+ + + + | Procedure Name | Priori | Date/Time | Associated Diagnosis | Comments | | | ty | | | | + +--------+ + + + | URINALYSIS WITH | Routin | 08/07/2018 | | Results for this | | MICROSCOPIC WITH | e | 10:55 AM | | procedure are in the | | CULTURE IF INDICATED | | PDT | | results section. | + +--------+ + + + | CULTURE, URINE | Routin | 08/07/2018 | | Results for this | | | e | 10:55 AM | | procedure are in the | | | | PDT | | results section. | + +--------+ + + + documented in this encounter Results Culture, Urine (08/07/2018 10:55 AM PDT) + + + + + + | Component | Value | Ref Range | Performed | Pathologist | | | | | At | Signature | + + + + + + | CULTURE | SEE NOTE (A)Comment: | | REFERENCE | | | BACTERIA | URINE CULTURE | | LAB | | | URINE | 08/08/2018 01:11 PM | | [facility] | | | | No growth after | | | | | | overnight incubation. | | | | | | 08/09/2018 09:01 AM | | | | | | Over 100,000 CFU/mL | | | | | | Lactose Rivet Sorter , | | | | | | Identification and | | | | | | susceptibility to | | | | | | follow. 08/10/2018 | | | | | | 06:24 AM Lactose | | | | | | Rivet Sorter identified as | | | | | [...] [place] | | | | | | [id number] Phone: | | | | | | | | | | + + + + + + + + | Specimen | + + | | + + + + + + + | Performing | Address | City/State/Zipcode | Phone Number | | Organization | | | | + + + + + | REFERENCE LAB | [address] | [place], [place] | [phone] | | [facility] | | [address] | | + + + + + | REFERENCE LAB | [address] | [place], [place] | [phone] | | [facility] | | [address] | | + + + + + Urinalysis with Microscopic with Culture if Indicated (08/07/2018 10:55 AM PDT) + + + + + [...] - 1.030 | REFERENCE | | | [place] | | | LAB | | | [...] Testing Performed at: [facility] CLIA: [id number] - [address] | REFERENCE LAB | | [place] [address] | [facility] | + + + + + + + + | Performing | Address | City/State/Zipcode | Phone Number | | Organization | | | | + + + + + | REFERENCE LAB | [facility] [address] | [place] | [phone] | | [facility] | | [address] | | + + + + + | REFERENCE LAB | [id number] | [place] | [phone] | | [place] | | [address] | | + + + + + documented in this encounter Visit Diagnoses + + | Diagnosis | + + | Pain with urination - Primary | + + documented in this encounter"
--- OUTSIDE RECORDS SUMMARY | ~2019-12-12 | XMS | Encounter Summary ---
Demographics + + + | Address | [address] | | | [place] [address] | + + + | Home Phone | | + + + | Preferred Language | Unknown | + + + | Marital Status | | + + + | Sabianist Affiliation | 1038 | + + + | Race | White | + + + | Ethnic Group | Not or | + + + Author + + + | Author | [facility] | | | and [place] | + + + | Organization | [facility] | | [...] [place], | | | | | [place] [address] | | + + + + + Care Team Providers + +------+ + | Care Educational Administrator Name | Role | Phone | + +------+ + | Alex Alvarenga DO | PCP | | + +------+ + Reason for Visit + +--------+ + | Reason | Onset | Comments | | | Date | | + +--------+ + | Medication Refill | 12/21/ | | | | 2017 | | + +--------+ + Encounter Details +--------+--------+ + + + | Date | Type | Department | Care Team | Description | +--------+--------+ + + + | 12/21/ | Refill | [facility] | Zoila Ruff CC | Medication Refill | | 2017 | | [facility] | [facility] | | | | | MEDICAL CLIN[facility] [address] | | | | | | [address] [facility], | | | | | | [place] [address] | | | | | | [phone] | | | +--------+--------+ + + + [...] Encounter - Zoila Ruff CC CMA - 12/21/2017 9:24 AM PDTPDMP checked. PRESCRI PTION last filled 11/21/2017 for quantity of 30 for 30 day supply. Patient ESTABLISHING 02/2018. PRESCRIPTION pended. Please sign. ALYSSIA Larson CMA documented in this encounter [...] [place] | | | | | | [address] | | | | | | [phone] | | | | | | | | +--------+---------+ + + + documented as of this encounter Visit Diagnoses Not on filedocumented in this encounter"
--- OUTSIDE RECORDS SUMMARY | ~2019-12-12 | XMS | Encounter Summary ---
Demographics + + + | Address | [address] | | | [place] [address] | + + + | Home Phone [...] + + + | Author | [facility] | | | and [place] | + + + | Organization | [facility] | | | [...] [place], | | | | | [place] [address] | | + + + + + Care Team Providers + +------+ + | Care Data Integration Developer Name | Role | Phone | + [...] + | 06/18/ | Telephone | [facility] | Zoila Ruff, CC | Lab Results | | 2019 | | [facility] | [facility] | | | | | MEDICAL CLIN[facility] [address] | | | | | | [address] [facility], | | | | | | [place] [address] | | | | | | [phone] | | | +--------+ + + + [...] - Zoila Ruff CC CMA - 06/18/2019 2:35 PM PSTPended PRESCRIPTION, please sign and send message back to me with result findings, I have not called patient. ALYSSIA Guerra CMA documented in this encounter Plan of [...] [place] | | | | | | [address] | | | | | | [phone] | | | | | | | | +--------+---------+ + + + documented as of this encounter Visit Diagnoses Not on filedocumented in this encounter"
--- OUTSIDE RECORDS SUMMARY | ~2019-12-12 | XMS | Encounter Summary ---
Demographics + + + | Address | [address] | | | [place] [address] | + + + | Home Phone | | + + + | Preferred Language | Unknown | + + + | Marital Status | | + + + | Protestant Affiliation | 1038 | + + + | Race | White | + + + | Ethnic Group | Not or | + + + Author + + + | Author | [facility] | | | and [place] | + + + | Organization | [facility] | | | [...] [place], | | | | | [place] [address] | | + + + + + Care Team Providers + +------+ + | Care Community Health Program Coordinator Name | Role | Phone | + +------+ + | Alex Alvarenga DO | PCP | | + +------+ + Reason for Visit + +--------+ + | Reason | Onset | Comments | | | Date | | + +--------+ + | Pharmacy / Med | 12/25/ | | | | 2018 | | + +--------+ + Encounter Details +--------+ + + + + | Date | Type | Department | Care Team | Description | +--------+ + + + + | 12/25/ | Telephone | [facility] | Alex Alvarenga | Pharmacy / Med | | 2018 | | [facility] | E, DO [address] | | | | | MEDICAL CLINIC [address] | [place], [place] | | | | | [address] [place], | [address] | | | | | [place] [address] | [phone] | | | | | [phone] | | | +--------+ + + + [...] Encounter - Zoila Ruff CC CMA - 12/25/2017 5:13 PM PDTV/o given to Calvin as written on 12/21/[address] Watts, fax not received. ALYSSIA Larson CMAElectronicall y signed by ALYSSIA Addison CMA at 12/25/2017 5:14 PM PDTTelephone Encounter - Hiro Ngo - 12/25/2017 5:03 PM [facility] [place] [facility] clarification o n zolpidem (AMBIEN) 5 mg tablet. Please call and advise. Thanks, Peña Ngo [...] [place] | | | | | | [address] | | | | | | [phone] | | | | | | | | +--------+---------+ + + + documented as of this encounter Visit Diagnoses Not on filedocumented in this encounter"
--- OUTSIDE RECORDS SUMMARY | ~2019-12-12 | XMS | Encounter Summary ---
Demographics + + + | Address | [address] | | | [place] [address] | + + + | Home Phone [...] | [facility] | [...] [place], | | | | | [place] [address] | | + + + + + Care Team Providers + +------+ + | Care Forklift Supervisor Name | Role | Phone | + +------+ + | Alex Alvarenga DO | PCP | | + +------+ + Reason for Visit + +--------+ + | Reason | Onset | Comments | | | Date | | + +--------+ + | Medication Refill | 05/21/ | | | | 2019 | | [...] | | | MEDICAL CLINIC [address] | [place], [place] | | | | | [address] [place], | [address] | | | | | [place] [address] | [phone] | | | | | [phone] | | | +--------+--------+ + + + [...] this encounter Miscellaneous Notes Telephone Encounter - Chelsea Gonzalez, RHYS - 05/21/2018 12:[facility] [place] [facility] rec'd for Zolpidem tartrate 5mg tabs # 30 Last fill per pharm. 04-19-18. Orig. rx 9-11-18 for #30 with #3 refills. Chelsea Gonzalez, RN 12: 12 PM PSTdocumented in this encounter Plan of Treatment +--------+---------+ + + + | Date | Type | Specialty | Care Team | Description | +--------+---------+ + + + | 12/21/ | Office | Primary Care | Alex Alvarenga | | | 2019 | Visit | | [address] | | | | | | [place] | | | | | | [address] | | | | | | [phone] | | | | | | | | +--------+---------+ + + + documented as of this encounter Visit Diagnoses Not on filedocumented in this encounter"
--- OUTSIDE RECORDS SUMMARY | ~2019-12-12 | XMS | Encounter Summary ---
Demographics + + + | Address | [address] | | | [place] [address] | + + + | Home Phone | | + + + | Preferred Language | Unknown | + + + | Marital Status | | + + + | Quaker Affiliation | 1038 | + + + | Race | White | + + + | Ethnic Group | Not or | + + + Author + + + | Author | [facility] | | | and [place] | + + + | Organization | [facility] | | | [...] [place], | | | | | [place] [address] | | + + + + + Care Team Providers + +------+ + | Care Supervisor Sample Name | Role | Phone | + +------+ + | Alex Alvarenga DO | PCP | | + +------+ + Reason for Visit +---------+--------+ + | Reason | Onset | Comments | | | Date | | +---------+--------+ + | Results | 12/06/ | | | | 2019 [...] | | | | | [address] [place], | [address] | | | | | [place] [address] | [phone] | | | | | [phone] | | | +--------+ + + + [...] Encounter - Kiran Antonio RN - 12/06/2018 3:[facility] PM [facility] Kiran Antonio RN elephone Encounter - Brian Cortez DNP - 12/06/2018 3:03 PM PDTI have not yet seen the results from Tatyana's urinalysis. If I get them before 6 I will respond. I did double check in Dr. Cameron perez's in box as well as my own. I believe that these labs were done at [facility] in [place]. Please call and see if santi pham can track down these results. 3: 16 PM PDTTelephone Encounter - Reji Quiñones - 12/06/2018 12:49 PM PDTPt called and is betty roberts the results of her labs done yesterday so pt can get a refill on a medication today. P t uses [facility] in [place] and they close at 6 pm. Please call today/Theelectronicholden s igned by Reji Quiñones at 12/06/2018 12:52 PM PDTdocumented in this encounter Plan of Treatment +--------+---------+ + + + | Date | Type | Specialty | Care Team | Description | +--------+---------+ + + + | 12/21/ | Office | Primary Care | Alex Alvarenga | | | 2019 | Visit | | E, DO | | | | | | [place], [place] | | | | | | [address] | | | | | | [phone] | | | | | | | | +--------+---------+ + + + documented as of this encounter Visit Diagnoses Not on filedocumented in this encounter"
--- OUTSIDE RECORDS SUMMARY | ~2019-12-12 | XMS | Encounter Summary ---
Demographics + + + | Address | [address] | | | [place] [address] | + + + | Home Phone [...] | [facility] | | | and [...] [place], | | | | | [place] [address] | | + + + + + Care Team Providers + +------+ + | Care Foreign Student Adviser Name | Role | Phone | + +------+ + | Alex Alvarenga DO | PCP | | + +------+ + Reason for Visit + +--------+ + | Reason | Onset | Comments | | | Date | | + +--------+ + | Appointment | 11/04/ | | | | 2020 | | + +--------+ + Encounter Details +--------+ + + + + | Date | Type | Department | Care Team | Description | +--------+ + + + + | 11/04/ | Telephone | [facility] | Alex Alvarenga | Appointment | | 2019 | | [facility] | E, DO [address] | | | | | [facility] [address] | [place] | | | | [address] [place], | [address] | | | | | [place] [address] | [phone] | | | | | [phone] | | | +--------+ + + + [...] this encounter Miscellaneous Notes Telephone Encounter - Bobbi Lee - 11/05/2019 2:43 PM PDTPt returned call, trying to set appointment Please call pt at [phone] signed by Bobbi Lee at 0 11/05/2019 2:44 PM PDTdocumented in this encounter Plan of [...] [place] | | | | | | [address] | | | | | | [phone] | | | | | | | | +--------+---------+ + + + documented as of this encounter Visit Diagnoses Not on filedocumented in this encounter"
--- OUTSIDE RECORDS SUMMARY | ~2019-12-12 | XMS | Encounter Summary ---
Demographics + + + | Address | [address] | | | [place] [address] | + + + | Home Phone | | + + + | Preferred Language | Unknown | + + + | Marital Status | | + + + | Advent Affiliation | [id number] | + + + | Race | White | + + + | Ethnic Group | Not or | + + + Author + + + | Author | [facility] | | | and [place] | + + + | Organization | [facility] | | [...] [place], | | | | | [place] [address] | | + + + + + Care Team Providers + +------+ + | Care Asphalt Tamper Name | Role | Phone | + +------+ + | Alex Alvarenga DO | PCP | | + +------+ + Reason for Visit +--------+ + | Reason | Comments | +--------+ + | Other | wound on face | +--------+ + Evaluate & Treat (Routine) +--------+ + + [...] nonsurgical | DO [address] | [address] | | | | | wound Open | [address] | | | | | wound of | [facility], [place] | [place], [place] | | | | | face, | [address] | [address] | | | | | initial | Phone: | Phone: | | | | | encounter | [phone] | [phone] | | | | | | Fax: | Fax: | | | | | | [phone] | [phone] | +--------+ + + + + + Encounter Details +--------+---------+ + + + | Date | Type | Department | Care Team | Description | +--------+---------+ + + + | 03/04/ | Office | [facility] | Alex Rainey, | Pyogenic granuloma | | 2019 | Visit | PLASTIC SURGERY AND | [address] | | | | | DERMATOLOGY [address] [place], | | | | | [address] | [place] [address] | | | | | [place] | [phone] | | | | | [address] | | | | | | [phone] | | | +--------+---------+ + + + [...] + + + | Blood Pressure | - | - | | + + + + + | Pulse | - | - | | + + + + + | Temperature | - | - | | + + + + + | Respiratory Rate | - | - | | + + + + + | Oxygen Saturation | - | - | | + + + + + | Inhaled Oxygen | - | - | | | Concentration | | | | + + + + + | Weight | 106.6 kg (235 lb) | 03/04/2019 9:11 AM | | | | | PST | | + + + + + | Height | 170.2 cm (5' 7") | 03/04/2019 9:11 AM | | | | | PST | | + + + + + | Body Mass Index | 36.81 | 03/04/2019 9:11 AM | | | | | PST | | + + + + + documented in this encounter Progress Notes Alex Rainey MD - 03/04/2019 9:40 AM PSTChief complaint: Nonhealing lesion right chin area HPI For about a year and a half the patient has had a nonhealing inflammatory lesion on the rig ht chin. This is been excised twice and has recurred. Her last excision was in August of this year by Dr. Montague from otolaryngology in [place]. He thought she had a lesion that involv e the mental nerve on the right side. Pathology shows no mention of nerve tissue and descri bes this as a vision with subdermal abscess and granulation tissue. ROS Constitutional Weight loss n Eyes Dry eye problems n ENT sleep apnea n Cardiovascular heart disease n Pacemaker n Respiratory current smoker n Sleep apnea n Gastrointestinal n Genitourinary Frequent UTI Dialysis n Musculoskeletal arthritis y Any metal implants? y Skin and Breast mammogram current y Hx of skin ca n Neurological numbness occasional Psychiatric Hx of Depression n Endocrine Hx DM n Hematologic/Lymphatic Hx of clotting problems n DVT, PE n Allergic/Immunologic local anesthetic allergy n Antibiotic allergy n BMI 36.81 Pregnancies 4 Chronic pain medicine use none ASA, blood thinners? none Oral contraceptives none Family History: Reviewed, non-contributory Social History: Patient is Past medical history, family history, ROS were reviewed PHYSICAL EXAM Constitutional: Well-developed, well-nourished Hent: Indented inflammatory lesion on the right side of the chin with an eschar. No rubi lulitis positive Tinel's over the area Eyes: Extraocular movements are intact Neck: No palpable lymph nodes Pulmonary: Effort normal Heart: Regular rhythm and rate Genitourinary: Not examined Neurological: Alert, oriented x3 Skin: Warm, dry Psychiatric: Mood/affect normal, behavior normal, thought content normal Assessment and plan: Chronic inflammatory lesion right chin. RCAPs of excision and closure were discussed with her. We need to get chart notes from Dr. Whatley. In the meantime we will get approval. documented in this e ncounter Plan of [...] [place] | | | | | | [address] | | | | | | [phone] | | | | | | | | +--------+---------+ + + + documented as of this encounter Visit Diagnoses + + | Diagnosis | + + | Pyogenic granuloma Pyogenic granuloma of skin and subcutaneous tissue | + + documented in this encounter
--- OUTSIDE RECORDS SUMMARY | ~2019-12-12 | XMS | Encounter Summary ---
Demographics + + + | Address | [address] | | | [place] [address] | + + + | Home Phone [...] + | Author | [facility] | | | and [place] [...] [place], | | | | | [place] [address] | | + + + + + Care Team Providers + +------+ + | Care Barn Operator Name | Role | Phone | + +------+ + | Alex Alvarenga DO | PCP | | + +------+ + Reason for Visit + +--------+ + | Reason | Onset | Comments | | | Date | | + +--------+ + | Medication Refill | 09/22/ | | | | 2020 | | + +--------+ + Encounter Details +--------+--------+ + + + | Date | Type | Department | Care Team | Description | +--------+--------+ + + + | 09/22/ | Refill | [facility] | Zoila Ruff, CC | Medication Refill | | 2020 | | [facility] | MEDICAL AND HEALTH SERVICES MANAGER | | | | | [facility] [address] | | | | | | [address] [facility], | | | | | | [place] [address] | | | | | | [phone] | | | +--------+--------+ + + + [...] Notes Telephone Encounter - Zoila Ruff CC MEDICAL AND HEALTH SERVICES MANAGER - 09/23/2019 2:23 PM PDTLAST OFFICE VISIT , labs up to date. ALYSSIA Larson MEDICAL AND HEALTH SERVICES MANAGER documented in this encounter Plan of Treatment +--------+---------+ + + + | Date | Type | Specialty | Care Team | Description | +--------+---------+ + + + | 12/21/ | Office | Primary Care | Alex Alvarenga | | | 2019 | Visit | | DO [address] [facility] [address] | | | | | | [place] | | | | | | [address] | | | | | | [phone] | | | | | | | | +--------+---------+ + + + documented as of this encounter Visit Diagnoses + + | Diagnosis | + + | Depression with anxiety Dysthymic disorder | + + documented in this encounter"
[~2019-12-12 07:34] MED LIST changes: +BACTRIM DS TAB1 EACH PO; +CYCLOBENZAPRINE10 MG PO
--- OUTSIDE RECORDS SUMMARY | 2019-12-12 07:36 | XMS ---
PreManage Notification: DANIA LUZ Security Marine Animal Trainer Events No recent Security Events currently on file CRITERIA MET - PDMP CARE PROVIDERS [facility] Current PHONE: [phone] Jeevan has no Care Guidelines for this patient. Gildardo VISIT COUNT (12 MO.) 1 SASHA Courtney TOTAL 1 NOTE: Visits indicate total known visits. ED/UCC VISIT TRACKING (12 MO.) 12/12/2019 07:34 SASHA [place] TYPE: Emergency COMPLAINT: - CHEST PAIN, SOB 12/02/2019 16:25 [place] TYPE: Urgent Care DIAGNOSES: - Urinary Tract Infection - Other INPATIENT VISIT TRACKING (12 MO.) No inpatient visits to display in this time frame [email or web address]
[2019-12-12] MEDS ORDERED: BUPROPION HCL100 MG (07:50)
[2019-12-12] MEDS ORDERED: ONDANSETRON ODT8 MG PO (09:48)
--- NOTE | 2019-12-12 17:19 | EKG ---
[facility] [address] [facility] [address] [place], [place] [address] Signed Sinus tachycardia Otherwise normal ECG When compared with ECG of 15-MAY-2017 22:12, Vent. rate has increased BY 56 BPM Confirmed by DIDI CORNEJO MD ([id number]) on 12/12/2019 5:18:56 PM Electronically Signed By: DIDI CORNEJO MD 12/12/19 1719 PATIENT NAME: NATTYDANIA KALEB Electrocardiogram DATE OF : 63 PHYSICIAN: DIDI CORNEJO MD REPORT #: [id number] REPORT IS CONFIDENTIAL AND NOT TO BE RELEASED WITHOUT AUTHORIZATION
== END 2019-12-12 10:28 | disposition home or self-care (01) ==
LOC: ED 07:34
DX: R06.00 Dyspnea, unspecified (principal); R07.89 Other chest pain; Z20.828 Contact with and (suspected) exposure to other viral communicable diseases; I10 Essential (primary) hypertension; Z91.048 Other nonmedicinal substance allergy status; Z88.8 Allergy status to other drugs, medicaments and biological substances; Z79.899 Other long term (current) drug therapy
CPT/HCPCS: 71045; 80053; 83735; 84484; 85025; 85379; 93005; 93010; 96374; 99285-25; C9803; J2405

== ENCOUNTER 2025-04-12 15:17 | Emergency (ER) | payer OTHER ==
[~2025-04-12] VITALS: Ht 170.2 cm; Wt 104.4 kg
[~2025-04-12 15:17] MED LIST changes: +BUPROPION HCL100 MG; +ONDANSETRON ODT8 MG PO
[2025-04-12 18:54] VITALS: BP 149/95
== END 2025-04-12 18:57 | disposition home or self-care (01) ==
LOC: ED 15:17
DX: S61.412A Laceration without foreign body of left hand, initial encounter (principal); I10 Essential (primary) hypertension; M19.90 Unspecified osteoarthritis, unspecified site; Z88.8 Allergy status to other drugs, medicaments and biological substances; Z91.048 Other nonmedicinal substance allergy status; W26.8XXA Contact with other sharp object(s), not elsewhere classified, initial encounter
CPT/HCPCS: 12002; 99282